=== PATIENT | female | born 2005 | race Caucasian/White ===

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

== ENCOUNTER 2025-01-20 15:47 | Outpatient (RCR) | payer BC, SELFPAY | END 2025-06-19 07:50 | disposition home or self-care (01) | LOC: PT 15:47 | PROVIDERS: PCP Family Medicine | DX: M76.821 Posterior tibial tendinitis, right leg (principal) | CPT/HCPCS: 97110; 97112; 97113; 97116; 97161 ==

== ENCOUNTER 2025-03-14 10:11 | Outpatient (OUT) | payer BC, SELFPAY ==
--- OUTSIDE RECORDS SUMMARY | 2024-08-13 07:56 | XMS_ITS ---
Author Organization The [facility] in [place] Address [address] [place] [address] Care Team Providers Care Repair Clerk Name Role Phone Alberto Reid MD Primary Care Provider Unavailab Oscar Copeland [phone] REASON FOR VISIT meds Medications Medication SIG (Take, Route, Fr equency, Duration) Notes Start Date End Date Status predniSONE 10 MG 3 tablets once a day for 3 days, 2 tablets once a day for 3 days, 1 tablet once a day for 3 days Orally for 9 days 08/13/2024 Active Encounters Encounter Location Date Provider Diagnosis [facility] (POD[facility]) [address] [place] [address] [place] [address] 08/13/2024 Oscar Boogie Plan Of Treatment Medication Medication Name Sig Start Date Stop Date Notes predniSONE 10 MG 3 tablets once a day for 3 days, 2 tablets once a day for 3 days, 1 tablet once a day for 3 days Orally for 9 days 08/13/2024 Progress Notes * Diana WHITTINGTONOB:2005 (18 yo F)Acc No.[id number]:08/13/2024 Patient: Matt SKINNERlie :2005 A ge:18 Y S ex:Female Address:[address] [place] [address] [address] , [place], [address] * Refills Start predniSONE Tablet, 10 MG, Orally, 18 tablet, 3 tablets once a day for 3 days, 2 tablets once a day for 3 days, 1 tablet once a day for 3 days, 9 days, Refills=0 * true * Date: Generated for Sendy sharif/Paige/eTransmitting on: 0 03/14/2025 10:14 AM EDT
--- OUTSIDE RECORDS SUMMARY | 2024-10-03 10:08 | XMS_ITS ---
Author Organization The [facility] in [place] Address [address] [place] [address] Care Team Providers Care Combination Operator Name Role Phone Alberto Reid MD Primary Care Provider Unavailab Oscar Copeland [facility] [phone] Encounters Encounter Location Date Provider Diagnosis [facility] [place] [address] [place] [address] 10/03/2024 Oscar Boogie Plan Of Treatment No Information Progress Notes * Diana WHITTINGTONOB:2005 (19 yo F)Acc No.[id number]:10/03/2024 Patient: Megan NUNEZ Urszula :2005 A ge:19 Y S ex:Female Address:[address] [place] [address], [phone] * true * Date: Generated for Dashawni ng/Trevorg/eTransmitting on: 0 03/14/2025 10:14 AM EDT
--- OUTSIDE RECORDS SUMMARY | 2024-12-11 06:00 | XMS_ITS ---
Author Organization [facility] in [place] Address [address] [place] [address] Care Team Providers Care Academic Services Professional Name Role Phone Franklin JEREZ, Alberto Primary Care Provider Unavailab Oscar Copeland [phone] REASON FOR VISIT discuss surgery Encounters Encounter Location Date Provider Diagnosis [facility] (PODIATRY) [address] [place] [address] [place] [address] 12/11/2024 Oscar Boogie Plan Of Treatment No Information Progress Notes * Igor [place]eDOB:2005 (19 yo F)Acc No.[id number]:12/11/2024 UNLOCKED PROGRESS NOTE Follow Up Patient: Urszula SKINNER Provider: Samira Boogie DPM MS :2005 A ge:19 Y S ex:Female Date:12/11/2024 Address:[address] [place], [place] [id number] Pcp:Alberto Reid MD Subjective: * Chief Complaints: * 1 . Discuss surgery. * Medical History: Objective: * Vitals: Assessment: Plan: * Treatment: * * Electronic signature of Duong Boogie DPM on 03/14/2025 at 10:13 AM EDT Sign off status: Pending Visit Status: O FF CANC (OFFICE CANCEL) * Provider: Samira Boogie DPM, MS Date: 0 12/11/2024 Generated for Printi ng/Faxing/eTransmitting on: 03/14/2025 10:13 AM EDT
--- OUTSIDE RECORDS SUMMARY | 2025-03-14 10:14 | XMS_ITS | Clinical Summary ---
Author Organization [facility] tem Address [id number] [address] [place] [address] Care Team Providers Care Drama Professor Name Role Phone Alberto Reid MD Primary Care Provider [phone] Allergies Active Allergy Reactions Criticality Noted Date Comments Albuterol 09/13/2019 Mom's states Ventolin makes patient vomit every time she has used it Amoxicillin 10/14/2018 Cephalosporins 10/14/2018 Vancomycin 01/05/2025 Medications cetirizine (ZyrTEC) 10 mg tablet Take 10 mg by mouth daily. Active montelukast (SINGULAIR) 10 mg tablet Take 10 mg by mouth nightly. Active albuterol (PROVENTIL HFA;VENTOLIN HFA) 90 mcg/actuation inhaler Inhale 2 puffs every 6 (six) hours as needed for wheezing. Active fluticasone (FLOVENT HFA) 220 mcg/actuation inhaler Inhale 2 puffs 2 (two) times a day. Active montelukast (SINGULAIR) 10 mg tablet TAKE 1 TABLET BY MOUTH DAILY FOR ASTHMA 11/19/2019 Active cetirizine (ZyrTEC) 1 mg/mL syrup Take 10 mg by mouth. Active NORTREL 1/35, 28, 1-35 mg-mcg per tablet Take 1 tablet by mouth daily. 07/16/2020 Active fluticasone propionate (FLOVENT HFA) 110 mcg/actuation inhaler Inhale 1 puff 2 (two) times a day. Active L norgest/e.estrad ioL-e.estrad (AMETHIA) 0.15 mg-30 mcg (84)/10 mcg (7) tablets,dose pack,3 month Take 1 tablet by mouth in the morning. 03/26/2024 Active loratadine (CLARITIN) 10 mg tablet Take 1 tablet (10 mg total) by mouth as needed. Active Active Problems No known active problems Encounters Date Type Department Care Team Description 01/05/2025 6:08 PM EDT - 01/05/2025 9:13 PM EDT Emergency [facility] - Emergency [address] [place] [phone] Abdias Sanchez MD Cellulitis, unspecified cellulitis site (Primary Dx) Discharge Disposition: Home 01/05/2025 Travel from Last 3 Months Family History Medical History Relation Name Comments Uterine cancer Maternal Grandmother Cancer Paternal Grandmother Relation Name Status Comments Father Alive Maternal Grandmother Alive Mother Alive Paternal Grandmother Social History Tobacco Use Types Packs/Day Years Used Date Smoking Tobacco: Never Smokeless Tobacco: Never Alcohol Use Standard Drinks/Week Comments Never 0 (1 standard drink = 0.6 oz pur e alcohol) AUDIT-C Answer Date Recorded Q1: How often do you have a drink containing alc ohol? Never 08/14/2020 Average Number of Drinks Not on file 021 Frequency of Binge Drinking Not on file 03/2021 Childcare Answer Date Recorded Childcare Unknown 01/16/2019 Employment Answer Date Recorded Employment Unknown 01/16/2019 Hunger Screening Answer Date Recorded Within the past 12 months we worried whether our food would run out before we got money to buy more. Never True 01/05/2025 Within the past 12 months th e food we bought just didn't last and we didn't have money to get more. Never True 01/05/2025 Purpose - Life Answer Date Recorded Purpose and direction in life Unknown Comments Unknown Sex and Gender Information Value Date Recorded Sex Assigned at Not on file Legal Sex Female 6:56 PM EDT Gender Identity Not on file Sexual Orientation Not on file Last Filed Vital Signs Vital Sign Reading Time Taken Comments Blood Pressure 119/64 01/05/2025 8:21 PM EDT Pulse 86 01/05/2025 8:21 PM EDT Temperature 36.7 C (98.1 F) 01/05/2025 6:04 PM EDT Respiratory Rate 18 01/05/2025 8:21 PM EDT Oxygen Saturation 99% 01/05/2025 9:12 PM EDT Inhaled Oxygen Concentration - - Weight 65.8 kg (145 lb) 01/05/2025 6:04 PM EDT Height 170.2 cm (5' 7 ) 01/05/2025 6:04 PM EDT Body Mass Index 22.71 01/05/2025 6:04 PM EDT Plan of Treatment Health Maintenance Due Date Last Done Comments DTaP,Tdap and Td Vaccines (6 - Tdap) 2016 04/29/2011, 10/10/2006, 04/04/2006, Additional history exists Depression Screening 2017 Tobacco Screening 2017 Influenza Vaccine 04/07/2025 06/17/2024, , 05/20/2022, Additional history exists Adult BMI Screening 01/05/2026 01/05/2025 COVID-19 Vaccine Completed 06/17/2024, , 05/20/2022, Additional history exists Medical Devices Not on file Procedures Procedure Name Priority Date/Time Associated Diagnosis Comments XR FOOT RT MIN 3 VWS STAT 01/05/2025 7:13 PM EDT C-REACTIVE PROTEIN Routine 01/05/2025 6: 48 PM EDT ERYTHROCYTE SEDIMENTATION RATE (ESR) Routine 01/05/2025 6:48 PM EDT LACTATE W/ REFLEX STAT 01/05/2025 6:4 8 PM EDT COMPREHENSIVE METABOLIC PANEL STAT 01/05/2025 6:48 PM EDT CBC WITH AUTO DIFFERENTIAL STAT 01/05/2025 6:48 PM EDT EXTRA TUBES BLUE TOP Routine 01/05/2025 6:47 PM EDT D-DIMER STAT Add-on 01/05/2025 6:47 PM EDT EXTRA TUBES Routine 01/05/2025 6:47 PM EDT from Last 3 Months Results * X-ray foot right minimum 3 views (01/05/2025 7:13 PM EDT) Anatomical Region Laterality Modality Lower Extremities, MSK, Foot Right Com puted Radiography 01/05/2025 7:37 PM EDT Narrative 01/05/2025 7:39 PM EDT 3 views of the right foot dated 01/05/2025 at 7:09 PM INDICATION: Swelling and pain in the right foot. Suspect osteomyelitis. FINDINGS: No comparisons available. 2 screws transfixing the calcaneus. The fracture line through the calcaneus is still visible. No soft tissue gas. No lucencies or periosteal reaction. IMPRESSION: 1. Two screws transfixing the calcaneus. 2. No lucencies or periosteal reaction to suggest osteomyelitis. Osteomyelitis can be occult on plain films. Finalized by Nasrin Johnston MD on 01/05/2025 7:39 PM Procedure Note Nasrin Johnston MD - 01/05/2025 3 views of the right foot dated 01/05/2025 at 7:09 PM INDICATION: Swelling and pain in the right foot. Suspect osteomyelitis. FINDINGS: No comparisons available. 2 screws transfixing the calcaneus.The fracture line through the calcaneus is still visible. No soft tissuegas. No lucencies or periosteal reaction. IMPRESSION: 1. Two screws transfixing the calcaneus. 2. No lucencies or periosteal reaction to suggest osteomyelitis.Osteomyelitis can be occult on plain films. Finalized by Nasrin Johnston MD on 01/05/2025 7:39 PM us Abdias Sanchez MD IMG DIAGNOSTIC IMAGING ORDERABL ES Final Result * Erythrocyte Sedimentation Rate (ESR) (01/05/2025 6:48 PM EDT) ESR, Erythrocyte Sedimentation Rate <1 0 - 20 mm/h 01/06/2025 10:19 AM EDT [facility] Blood Venous blood / Unknown 01/05/2025 6:48 PM EDT 01/05/2025 6:50 PM EDT us Abdisa Sanchez MD LAB BLOOD ORDERABLES Final Resu lt Performing Organization Address City/[facility]/ZIP Co de Phone Number [facility] [address] [place] [address], [place] [phone] * Lactate w/ Reflex (01/05/2025 6:48 PM EDT) LACTATE W/REFLEX 1.0 0.4 - 2.0 mmol/L 01/05/2025 7:08 PM EDT [facility] Blood Venous blood / Unknown 01/05/2025 6:48 PM EDT 01/05/2025 6:50 PM EDT Narrative [facility] - 01/05/2025 7:08 PM EDT Result did not trigger repeat Lactate, re-order if needed. us Abdias Sanchez MD LAB BLOOD ORDERABLES Final Resu lt Performing Organization Address City/[facility]/ZIP Co de Phone Number [facility] [address] [place] [address], [place] * (ABNORMAL) CBC auto differential (01/05/2025 6:48 PM EDT) WBC 8.2 4 - 11 x10E9/L 01/05/2025 7:08 PM EDT [facility] RBC Count 4.14 3.8 - 5.2 X10E12/L 01/05/2025 7:08 PM EDT [facility] Hemoglobin 13.8 11.7 - 15.5 g/dL 01/05/2025 7:08 PM EDT [facility] Hematocrit 39.9 35 - 47 % 01/05/2025 7:08 PM EDT [facility] MCV 97 80 - 100 fL 01/05/2025 7:08 PM EDT [facility] MCH 33.4 27 - 34 pg 01/05/2025 7:08 PM EDT [facility] MCHC 34.6 32 - 36 g/dL 01/05/2025 7:08 PM EDT [facility] RDW 13.1 11.5 - 15 % 01/05/2025 7:08 PM EDT [facility] Platelet Count 346 150 - 450 X10E9/L 01/05/2025 7:08 PM EDT [facility] MPV 7.7 7 - 12 fL 01/05/2025 7:08 PM EDT [facility] Neutrophils % 48.8 % 01/05/2025 7:08 PM EDT [facility] Lymphocytes % 33.2 % 01/05/2025 7:08 PM EDT [facility] Monocytes % 7.9 % 01/05/2025 7:08 PM EDT [facility] Eosinophils % 9.8 % 01/05/2025 7:08 PM EDT [facility] Basophils % 0.3 % 01/05/2025 7:08 PM EDT [facility] Neutrophils Absolute (A) 4.0 1.5 - 6.6 10*3/uL 01/05/2025 7:08 PM EDT [facility] Lymphocytes Absolute 2.7 1.0 - 3.5 10*3/uL 01/05/2025 7:08 PM EDT [facility] Monocytes Absolute 0.6 0.0 - 0.9 10*3/uL 01/05/2025 7:08 PM EDT [facility] Eosinophils Absolute 0.8(H) 0.0 - 0.4 10*3/uL 01/05/2025 7:08 PM EDT [facility] Basophils Absolute 0.0 0.0 - 0.2 10*3/uL 01/05/2025 7:08 PM EDT [facility] Differential Type AUTOMATED DIFFERENTIAL 01/05/2025 7:08 PM EDT [facility] Blood Venous blood / Unknown 01/05/2025 6:48 PM EDT 01/05/2025 6:50 PM EDT us Abdias Sanchez MD LAB BLOOD ORDERABLES Final Resu lt Performing Organization Address [facility] Co de Phone Number [address] [place] [address], [place] * C-reactive protein (01/05/2025 6:48 PM EDT) C REACTIVE PROTEIN 0.6 <=0.7 mg/dL 01/05/2025 7:15 PM EDT [facility] Blood Venous blood / Unknown 01/05/2025 6:48 PM EDT 01/05/2025 6:50 PM EDT us Abdias Sanchez MD LAB BLOOD ORDERABLES Final Resu lt Performing Organization Address [facility] Co de Phone Number [address] [place] [address], [place] * (ABNORMAL) Comprehensive metabolic panel (01/05/2025 6:48 PM EDT) SODIUM 136 134 - 146 mmol/L 01/05/2025 7:27 PM EDT [facility] POTASSIUM 3.5 3.5 - 5.0 mmol/L 01/05/2025 7:27 PM EDT [facility] CHLORIDE 108 98 - 109 mmol/L 01/05/2025 7:27 PM EDT [facility] CARBON DIOXIDE 19(L) 22 - 32 mmol/L 01/05/2025 7:27 PM EDT [facility] ANION GAP 9 5 - 15 mmol/L 01/05/2025 7:27 PM EDT [facility] BLOOD UREA NITROGEN 18 5 - 23 mg/dL 01/05/2025 7:27 PM EDT [facility] CREATININE 0.79 0.40 - 1.00 mg/dL 01/05/2025 7:27 PM EDT [facility] Comment:METHOD TRACEABLE TO IDMS STANDARD GLUCOSE 108(H) 65 - 99 mg/dL 01/05/2025 7:27 PM EDT [facility] CALCIUM 8.8 8.5 - 10.5 mg/dL 01/05/2025 7:27 PM EDT [facility] TOTAL PROTEIN 6.5 6.0 - 8.0 g/dL 01/05/2025 7:27 PM EDT [facility] ALBUMIN 3.9 3.2 - 5.3 g/dL 01/05/2025 7:27 PM EDT [facility] ALKALINE PHOSPHATASE 58 39 - 130 U/L 01/05/2025 7:27 PM EDT [facility] AST 18 <=41 U/L 01/05/2025 7:27 PM EDT [facility] ALT 20 <=31 U/L 01/05/2025 7:27 PM EDT [facility] BILIRUBIN,TOTAL 0.6 0.3 - 1.2 mg/dL 01/05/2025 7:27 PM EDT [facility] EGFR Non-Race Dependent >90 >=60 ml/min/1.7 3sq.m 01/05/2025 7:27 PM EDT [facility] Comment: Reported eGFR is based on the CKD-EPI 2020 equation that does not use a race coefficient. Blood Venous blood / Unknown 01/05/2025 6:48 PM EDT 01/05/2025 6:50 PM EDT us Abdias Sanchez MD LAB BLOOD ORDERABLES Final Resu lt [facility] [address] [place] [address], [place] * Light Blue Top (01/05/2025 6:47 PM EDT) Extra Tube Auto Resulted 01/05/2025 8:02 PM EDT [facility] Blood Venous blood / Unknown 01/05/2025 6:47 PM EDT 01/05/2025 6:51 PM EDT Abdias Sanchez MD LAB BLOOD ORDERABLES Final Resu lt Performing Organization Address [facility] Co de Phone Number [address] [place] [address], * D-Dimer (01/05/2025 6:47 PM EDT) D DIMER <150 1 - 255 ug/mL 01/05/2025 8:13 PM EDT [facility] Comment:Results <255 ng/mL D DU: The presensence of a VTE can safely be excluded with a negative D-Dimer result and Wells score. A negative result doesn't exclude the possibility of DIC. The test should be repeated along with other diagnostic tests if the patient's symptoms persist or worsen. Blood Venous blood / Unknown 01/05/2025 6:47 PM EDT 01/05/2025 6:51 PM EDT Abdias Sanchez MD LAB BLOOD ORDERABLES Final Resu lt Performing Organization Address [facility] Co de Phone Number [address] [place] [address], from Last 3 Months Insurance ANTHE[facility] [phone] Care Teams Drama Professor Relationship Specialty Start Date End Date Alberto Reid MD PCP - General Family Medicine 10/14/18
--- OUTSIDE RECORDS SUMMARY | 2025-03-14 10:14 | XMS_ITS | Encounter Summary ---
Author Organization [facility] Address [address], [address] [place] [address] Care Team Providers Care Global Climate Change Analyst Name Role Phone Alberto Reid MD Primary Care Provider + Reason for Visit * Reason Comments Medication Refill Encounter Details Date Type Department Care Team (Late st Contact Info) Description 02/26/2019 Refill [facility] [address] [phone] Joanie Gaines MD Medication Refill Social History Tobacco Use Types Packs/Day Years Used Date Smoking Tobacco: Passive Smo ke Exposure - Never Smoker Smokeless Tobacco: Current Comments:both parents smoke Alcohol Use Standard Drinks/Week Comments Not Asked 0 (1 standard drink = 0.6 oz pur e alcohol) Comments Unknown Sex and Gender Information Value Date Recorded Sex Assigned at Not on file Legal Sex Female 10:12 PM EST Gender Identity Not on file Sexual Orientation Not on file documented as of this encounter Plan of Treatment Not on file documented as of this encounter Visit Diagnoses Not on filedocumented in this encounter Care Teams Global Climate Change Analyst Relationship Specialty Start Date End Date Alberto Reid MD PCP - General Family Medicine 11/09/18 documented as of this encounter
--- OUTSIDE RECORDS SUMMARY | 2025-03-14 10:14 | XMS_ITS | Encounter Summary ---
Author Organization [facility] Address [address] [place] [address] Care Team Providers Care Lease Out Worker Name Role Phone Alberto Reid MD Primary Care Provider [phone] Reason for Visit * Reason Comments Med Refill Encounter Details Date Type Department Care Team (Late Contact Info) Description 03/05/2025 Refill [facility] [address] [place] [phone] Alberto Reid MD [address] [place] [phone] Migraine without aura and without status migrainosus, not intractable Social History Tobacco Use Types Packs/Day Years Used Date Smoking Tobacco: Never Smokeless Tobacco: Never Alcohol Use Standard Drinks/Week Comments Never 0 (1 standard drink = 0.6 oz pur e alcohol) PHQ-2 Answer Date Recorded Patient Health Questionnaire-2 Score 0 09/05/2023 Comments Unknown Sex and Gender Information Value Date Recorded Sex Assigned at Not on file Legal Sex Female 7:32 PM EDT Gender Identity Not on file Sexual Orientation Not on file documented as of this encounter Miscellaneous Notes * Telephone Encounter - NAHED RICHARDSON - 03/06/2025 9:49 AM EDT MEDICATION SENT TO [facility] documented in this encounter Plan of Treatment Upcoming Encounters Date Type Department Care Team (Late Contact Info) Description 05/26/2025 9:45 AM EDT Office Visit [facility] [address] [place] [address] Alberto Reid MD [address] [place] [address] documented as of this encounter Visit Diagnoses Diagnosis Migraine without aura and without status migrainosus, not intractable documented in this encounter Care Teams Lease Out Worker Relationship Specialty Start Date End Date Alberto Reid MD [address] [place] [address] PCP - General Family Medicine 08/25/23 documented as of this encounter
--- OUTSIDE RECORDS SUMMARY | 2025-03-14 10:14 | XMS_ITS | Encounter Summary ---
Author Organization [facility] Address [address] [place] [address] Care Team Providers Care Syrup Shed Supervisor Name Role Phone Alberto Reid MD Primary Care Provider [phone] Encounter Details Date Type Department Care Team (Late st Contact Info) Description 08/13/2024 Clinisync Result Encounter [facility] External Department Unsolicited Provider, Generic External Data Social History Tobacco Use Types Packs/Day Years [...] as of this encounter Plan of Treatment Upcoming Encounters Date Type Department Care Team (Late st Contact Info) Description 05/26/2025 9:45 AM EDT Office Visit [facility] [address] [place] [address] Alberto Reid MD [address] [place] [address] documented as of this encounter Procedures Procedure Name Priority Date/Time Associated Diagnosis Comments XR FOOT RT MIN 3V 08/13/2024 10: 37 PM EST documented in this encounter Results * XR FOOT RT MIN 3V (08/13/2024 10:37 PM EST) Anatomical Region Laterality Modality Other 08/13/2024 10:3 7 PM EST Narrative 08/13/2024 10:39 [place] [address] XRay Report Signed Patient: KOLBY WHITTINGTON MR#: [id number] : 2005 Acct:[id number] Age/Sex: 18 / F ADM Date: 08/13/24 Loc: RAD Attending Dr: Orlando Boogie D.P.M. Ordering Physician: Orlando Boogie D.P.M. Date of Service: 08/13/24 Procedure(s): XR foot RT min 3V Accession Number(s): [id number] cc: Orlando Boogie D.P.M.; Alberto Reid M.D. [place] [address] Patient Name: KOLBY WHITTINGTON MRN: [id number] date: 2005 Sex: F Assigned Patient Location: [facility] Current Patient Location: [facility] Accession/Order Number: [id number] Exam Date: 08/13/2024 10:45 Report Date: 08/13/2024 22:37 At the request of: ORLANDO BOOGIE Procedure: XR foot RT min 3V EXAM: XR foot RT min 3V HISTORY: Right Foot Pain COMPARISON: None. FINDINGS/IMPRESSION: 1. No acute fracture or dislocation. 2. Normal alignment of the forefoot. 3. No significant joint degeneration. Electronically authenticated by: FREYA WALTON Date: 08/13/2024 22:37 Dictated By: Freya Walton M.D. Signed By: 08/13/242238 DD/ 36 TD/TT: Health Informatics Instructor: Procedure Note Radiology, Radiologist, MD - 08/14/2024 [place] [address] XRay Report Signed Patient: KOLBY WHITTINGTON LMR#: [id number] : 2005cct:[id number] Age/Sex: 18 / FADM Date: 08/13/24 Loc: RAD Attending Dr: Orlando Boogie D.P.M. Ordering Physician: Orlando Boogie D.P.M. Date of Service: 08/13/24 Procedure(s): XR foot RT min 3V Accession Number(s): [id number] cc: Orlando Boogie D.P.M.; Alberto Reid M.D. [address] [place] [address] Patient Name: KOLBY WHITTINGTON MRN: [id number] date: 2005 Sex: F Assigned Patient Location: RAD Current Patient Location: RAD Accession/Order Number: [id number] Exam Date: 08/13/2024 10:45 Report Date: 08/13/2024 22:37 At the request of: ORLANDO BOOGIE Procedure: XR foot RT min 3V EXAM: XR foot RT min 3V HISTORY: Right Foot Pain COMPARISON: None. FINDINGS/IMPRESSION: 1. No acute fracture or dislocation. 2. Normal alignment of the forefoot. 3. No significant joint degeneration. Electronically authenticated by: FREYA WALTON Date: 08/13/2024 22:37 Dictated By: Freya Walton M.D. Signed By:08/13/242238 DD/ 36 TD/TT: Health Informatics Instructor: Generic External Data Provider [facility] Final Result documented in this encounter Visit Diagnoses Not on filedocumented in this encounter Care Teams Syrup Shed Supervisor Relationship Specialty Start Date End Date Alberto Reid MD [address] [place] [address] PCP - General Family Medicine 08/25/23 documented as of this encounter
--- OUTSIDE RECORDS SUMMARY | 2025-03-14 10:14 | XMS_ITS | Clinical Summary ---
Author Organization [facility] Healthcare Address [address] [place] [address] Care Team Providers Care Chaperon Name Role Phone Alberto Reid MD Primary Care Provider [phone] Allergies Active Allergy Reactions Criticality Noted Date Comments Albuterol Unknown 09/13/2019 Mom's states Ventolin makes patient vomit every time she has used it Mom's states Ventolin makes patient vomit every time she has used it Mom's states Ventolin makes patient vomit every time she has used it Cephalosporins Hives,Shortness of breath,Swelling High 11/23/2012 Penicillins Hives,Shortness of breath,Swelling High 09/08/2011 Vancomycin Rash Low 02/27/2025 Medications fluticasone (Flovent) 110 MCG/ACT inhalerIndication s:Mild intermittent asthma without complication (HCC) Inhale 2 puffs in the morning and 2 puffs before bedtime. 12 g 5 02/29/20 24 Active montelukast (Singulair) 10 MG tablet Take 10 mg by mouth at bedtime Active ondansetron ODT (Zofran-ODT) 4 MG disintegrating tabletIndications :Migraine without aura and without status migrainosus, not intractable DISSOLVE 1 (ONE) TABLET ON THE TONGUE EVERY 6 HOURS NEEDED 30 tablet 2 03/19/20 24 Active L norgest/e.estradi ol-e.estrad (Simpesse) 0.15-0.03 &0.01 MG tablet tabletIndications :Irregular menstruation, unspecified Take 1 tablet by mouth Daily 91 tablet 3 03/26/20 24 Active benzonatate (Tessalon) 200 MG capsuleIndication s:Acute non-recurrent pansinusitis Take 1 capsule (200 mg) by mouth 3 (three) times a day as needed for cough Do not crush or chew. 20 capsule 1 04/05/20 24 Active rizatriptan SMALL PACKAGE AND BUNDLE SORTER CLERK (Maxalt-SMALL PACKAGE AND BUNDLE SORTER CLERK) 10 MG disintegrating tabletIndications :Migraine without aura and without status migrainosus, not intractable TAKE 1 TABLET BY MOUTH at the onset OF headache may repeat in 2 (TWO) HOURS once 9 tablet 3 05/14/20 24 Active hydrOXYzine HCl (Atarax) 25 MG tabletIndications :Urticaria, unspecified TAKE 1 TABLET BY MOUTH FOUR TIMES DAILY NEEDED 60 tablet 2 05/15/20 24 Active Mucinex D Max Strength 120-1200 MG tablet sustained-release 12 hourIndications:S easonal allergic rhinitis due to pollen TAKE 1 TABLET BY MOUTH TWICE DAILY NEEDED for congestion 60 tablet 3 05/27/20 24 Active topiramate (Topamax) 100 MG tabletIndications :Migraine without aura and without status migrainosus, not intractable TAKE 1 TABLET BY MOUTH THREE TIMES DAILY (IN THE MORNING, IN THE EVENING, and BEFORE bedtime) 90 tablet 3 03/06/20 25 Active topiramate (Topamax) 100 MG tabletIndications :Migraine without aura and without status migrainosus, not intractable TAKE 1 TABLET BY MOUTH THREE TIMES DAILY (IN THE MORNING, IN THE EVENING, and BEFORE bedtime) 90 tablet 3 05/27/20 24 2024 Discontinued Active Problems Problem Noted Date Diagnosed Date Palpitation 02/06/2025 Assessment & Plan (02/27/2025 3:10 PM EDT): Frequent symptoms causing lightheadedness. Check labs and Holter. Endometriosis 10/07/2024 Assessment & Plan (11/27/2024 10:04 AM EDT): Increased pain and follow with rn gyn. Assessment & Plan (10/07/2024 12:14 PM EST): Increased pain and follow with rn gyn. ROXANA (generalized anxiety disorder) 07/16/2024 Assessment & Plan (02/27/2025 3:09 PM EDT): Symptoms stable and monitor. Assessment & Plan (10/07/2024 12:14 PM EST): Symptoms stable and monitor. Assessment & Plan (07/16/2024 12:11 PM EST): Severe anxiety and appears situational. Will complete paperwork to get single room and to be able to take exam online. Biliary dyskinesia 02/29/2024 Assessment & Plan (02/29/2024 11:17 AM EDT): Continued pain and abnormal testing, follow with surgery. RUQ pain 01/25/2024 Assessment & Plan (11/27/2024 10:04 AM EDT): Frequent pain and possibly related to endometriosis. Labs normal. Assessment & Plan (10/07/2024 12:15 PM EST): Frequent pain and possibly related to endometriosis. Check labs. Assessment & Plan (01/25/2024 12:33 PM EDT): Continued pain and check US. If normal and symptoms persist can check HIDA. Gastroesophageal reflux disease without esophagi tis 01/25/2024 Assessment & Plan (01/25/2024 12:33 PM EDT): Developed GERD and start protonix. Arthralgia of multiple joints 11/30/2023 Assessment & Plan (11/30/2023 10:36 AM EDT): Pain in multiple joints and family history of auto-immune disease. Check labs. Migraine without aura and wi thout status migrainosus, not intractable 09/05/2023 Assessment & Plan (02/27/2025 3:09 PM EDT): HENRY controlled with topamax and continue. Use maxalt PRN. Assessment & Plan (10/07/2024 12:14 PM EST): HENRY controlled with topamax and continue. Use maxalt PRN. Assessment & Plan (02/29/2024 11:17 AM EDT): HENRY controlled with topamax and continue. Use maxalt PRN. Assessment & Plan (11/30/2023 10:36 AM EDT): HENRY controlled with topamax and continue. Use maxalt PRN. Seasonal allergic rhinitis due to pollen Assessment & Plan (02/27/2025 3:10 PM EDT): Symptoms controlled with medication and continue. Assessment & Plan (10/07/2024 12:15 PM EST): Symptoms controlled with medication and continue. Assessment & Plan (02/29/2024 11:18 AM EDT): Symptoms controlled with medication and continue. Assessment & Plan (11/30/2023 10:36 AM EDT): Symptoms controlled with medication and continue. Annual physical exam 09/05/2023 Assessment & Plan (09/05/2023 10:27 AM EST): Form completed for work. Due for Tdap booster. Discussed proper diet and regular aerobic exercise. Need aerobic exercise 5-6 days a week for 30 minutes at a time. Smaller portions and limit total calories. Colonoscopy after age 45. Tetanus every 10 years. Advised not to smoke. Discussed daily Aspirin therapy. Mild intermittent asthma without complication Assessment & Plan (02/27/2025 3:09 PM EDT): Symptoms controlled with flovent and continue. Use albuterol PRN. Assessment & Plan (10/07/2024 12:14 PM EST): Symptoms controlled with flovent and continue. Use albuterol PRN. Assessment & Plan (02/29/2024 11:17 AM EDT): Symptoms controlled with flovent and continue. Use albuterol PRN. Assessment & Plan (11/30/2023 10:36 AM EDT): Symptoms controlled with flovent and continue. Use albuterol PRN. Resolved Problems Problem Noted Date Diagnosed Date Resolved Date Acute bronchitis due to othe r specified organisms 05/23/2024 07/16/2024 Assessment & Plan (05/23/2024 4:06 PM EDT): Take antibiotics for 5 days and will [...] if no better or worse call office. Acute non-recurrent pansinusitis 01/10/2024 01/25/2024 Assessment & Plan (01/10/2024 11:08 AM EDT): Take antibiotics for 7 days. Use prednisone for inflammation. Use sudafed or other decongestants as needed. Use Robitussin or Robitussin-DM for cough. Can use afrin for congestion but no longer than 3 days. Can use Mucinex to bring up phlegm. Use Motrin or Tylenol as needed for fever, aches, or pains. Increase fluid intake and rest. Should improve over next 5-7 days and if no better or worse call for re- evaluation. Acute nonsuppurative otitis media of left ear 01/10/20 24 01/25/2024 Assessment & Plan (01/10/2024 11:08 AM EDT): Start levaquin Acute right ankle pain 11/30/202302/28 Assessment & Plan (11/30/2023 10:35 AM EDT): Recent pain but no injury. Treat with prednisone. Ice and elevate PRN. Handout with ROM exercises to patient. Adjustment disorder with anxious mood 01/17/2023 09/05/2023 Disturbance in sleep behavior 01/17/2023 09/05/2023 Tension headache 01/17/2023 09/05/2023 Encounters Date Type Department Care Team Description 03/05/2025 Refill [facility] [address] [place] [phone] Alberto Reid MD Migraine without aura and without status migrainosus, not intractable 02/27/2025 2:45 PM EDT Office Visit [facility] [address] [place] [address] Alberto Reid MD Palpitation (Primary Dx); Migraine without aura and without status migrainosus, not intractable ; ROXANA (generalized anxiety disorder) ; Mild intermittent asthma without complication (HCC); Seasonal allergic rhinitis due to pollen 02/27/2025 Bamboo flowsheet [facility] [address] [place] [phone] Alberto Reid MD 02/05/2025 Telephone [facility] [address] [place] [address] Alberto Reid MD Rapid Heart Rate from Last 3 Months Family History Medical History Relation Name Comments Diabetes Maternal Grandfather Hypertension Maternal Grandfather Endometriosis Maternal Grandmother Endometriosis Mother Cancer Paternal Grandfather Relation Name Status Comments Father Alive Maternal Grandfather Maternal Grandmother Mother Alive Paternal Grandfather Social History Tobacco Use Types Packs/Day Years Used Date Smoking Tobacco: Never Smokeless Tobacco: Never Tobacco Cessation:Counseling Given: Not Answered Alcohol Use Standard Drinks/Week Comments Never 0 [...] Sign Reading Time Taken Comments Blood Pressure 122/66 02/27/2025 2:44 PM EDT Pulse 105 02/27/2025 2:44 PM EDT Temperature 36.6 C (97.8 F) 02/27/2025 2:44 PM EDT Respiratory Rate 20 02/27/2025 2:44 PM EDT Oxygen Saturation 98% 02/27/2025 2:44 PM EDT Inhaled Oxygen Concentration - - Weight 71.7 kg (158 lb) 02/27/2025 2:44 PM EDT Height 170.2 cm (5' 7 ) 02/27/2025 2:44 PM EDT Body Mass Index 24.75 02/27/2025 2:44 PM EDT Plan of Treatment Upcoming Encounters Date Type Department Care Team (Late st Contact Info) Description 05/26/2025 9:45 AM EDT Office Visit [facility] [address] [place] [address] Alberto Reid MD [address] [place] [address] Health Maintenance Due Date Last Done Comments Influenza Vaccine (#1) 2025 , 07/06/2023, 05/20/2022, Additional history exists Insurance [employer] Care Teams Chaperon Relationship Specialty Start Date End Date Alberto Reid MD [address] [place] [address] PCP - General Family Medicine 08/25/23
--- OUTSIDE RECORDS SUMMARY | 2025-03-14 10:14 | XMS_ITS | Encounter Summary ---
Author Organization [facility] Address [address] [place] [address] Care Team Providers Care Precipitator Name Role Phone Alberto Reid MD Primary Care Provider [phone] Alberto Reid MD Unavailable Encounter Details Date Type Department Care Team ([facility] Contact Info) Description 06/18/2024 Orders Only [facility] [address] [place] [phone] Alberto Reid MD [address] [place] [phone] Social History Tobacco Use Types Packs/Day Years [...] 05/26/2025 9:45 AM EDT Office Visit [facility] [address] [place] [phone] Alberto Reid MD [address] [place] [address] documented as of this encounter Visit Diagnoses Not on filedocumented in this encounter Care Teams Precipitator Relationship Specialty Start Date End Date Alberto Reid MD [address] [place] [address] PCP - General Family Medicine 08/25/23 Alberto Reid MD [address] [place] [address] PCP - [place] [employer] 01/06/2407/06 documented as of this encounter
--- OUTSIDE RECORDS SUMMARY | 2025-03-14 10:14 | XMS_ITS | Clinical Summary ---
Author Organization [facility] Address [address], [address] [place] [address] Care Team Providers Care Wellness Coordinator Name Role Phone Alberto Reid MD Primary Care Provider + Allergies Active Allergy Reactions Criticality Noted Date Comments Amoxicillin Hives 09/08/2011 Cephalosporins Swelling High 11/23/2012 Latex Hives 12/04/2024 Other 09/05/2011 Dust, mold Penicillins Anaphylaxis,Rash High 12/03/2024 Albuterol 09/13/2019 Mom's states Ventolin makes patient vomit every time she has used it Medications Respiratory Therapy Supplies (VORTEX HOLDING CHAMBER/MASK) TRINIDAD by Does not apply route. 1 Device 0 09/08/19 12 Active Nebulizers (BOB LC PLUS NEB SET PED MASK) MISC 1 Device by Does not apply route 2 times daily. 1 each 0 09/13/19 14 Active Additional Information Patient not taking.Reported on 09/13/2019 Respiratory Therapy Supplies (VORTEX HOLDING CHAMBER/MASK) TRINIDAD 1 Device by Does not apply route daily 1 Device 08/15/19 17 Active fluticasone (FLOVENT HFA) 220 MCG/ACT inhaler Inhale 2 puffs into the lungs 2 times daily 1 Inhaler 5 11/10/19 19 Active ondansetron (ZOFRAN-ODT) 4 MG disintegrating tablet Take 1 tablet by mouth every 8 hours as needed for Nausea or Vomiting 0 03/22/20 19 Active fluticasone (FLONASE) 50 MCG/ACT nasal spray 1 spray by Nasal route daily 1 Bottle 5 06/07/20 19 Active Additional Information Patient taking differently:1 spray NasalDAILY PRN, Reported on 12/04/2024 albuterol sulfate HFA (PROAIR HFA) 108 (90 Base) MCG/ACT inhaler Inhale 2 puffs into the lungs every 6 hours as needed for Wheezing 1 Inhaler 06/07/20 19 Active Respiratory Therapy Supplies (VORTEX HOLDING CHAMBER/MASK) TRINIDAD 1 Device by Does not apply route daily 1 Device 09/13/19 20 Active montelukast (SINGULAIR) 10 MG tablet TAKE 1 TABLET BY MOUTH DAILY FOR ASTHMA 90 tablet 1 11/19/19 20 Active Additional Information Patient taking differently: 10 mg Oral NIGHTLY, Reported on 12/04/2024 Levonorgest-Eth Estrad 91-Day (SIMPESSE) 0.15-0.03 &0.01 MG TABS Take 1 tablet by mouth daily Active loratadine (CLARITIN) 10 MG tablet Take 1 tablet by mouth as needed Active cetirizine (ZYRTEC) 10 MG tablet Take 1 tablet by mouth as needed for Allergies Active topiramate (TOPAMAX) 25 MG tablet Take 2 tablets by mouth 3 times daily Active rizatriptan (MAXALT-CORPORATE TAX PREPARER) 10 MG disintegrating tablet Take 1 tablet by mouth once as needed 05/14/20 24 Active Active Problems Patient Care Coordination No te Formatting of this note migh t be different from the original. Please all respiratory meds and equipment per Dr. Gaines Problem Noted Date Diagnosed Date Asthma 06/24/2013 Immunizations Immunization Administration Dates Next Due Influenza 09/08/2011 Influenza, FLUARIX, FLULAVAL , FLUZONE (age 6 mo+) and AFLURIA, (age 3 y+), Quadv PF, 0.5mL 08/15/2016 Social History Tobacco Use Types Packs/Day Years Used Date Smoking Tobacco: Never Passive Smoke Exposure: Yes Smokeless Tobacco: Never Tobacco Cessation:Counseling Given: Not Answered Comments:both parents smoke Alcohol Use Standard Drinks/Week Comments Not Currently 0 (1 standard drink = 0.6 oz pur e alcohol) Interpersonal Safety Domain Source: IP Abuse Scr eening Answer Date Recorded Physical abuse Denies 12/04/2024 Verbal abuse Denies 12/04/2024 Emotional abuse Denies 12/04/2024 Financial abuse Denies 12/04/2024 Sexual abuse Denies 12/04/2024 Comments Unknown Sex and Gender Information Value Date Recorded Sex Assigned at Not on file Legal Sex Female 10:12 PM EST Gender Identity Not on file Sexual Orientation Not on file Last Filed Vital Signs Vital Sign Reading Time Taken Comments Blood Pressure 119/73 12/04/2024 2:10 PM EDT Pulse 91 12/04/2024 2:10 PM EDT Temperature 36.9 C (98.4 F) 12/04/2024 2:10 PM EDT Respiratory Rate 14 12/04/2024 2:10 PM EDT Oxygen Saturation 100% 12/04/2024 2:10 PM EDT Inhaled Oxygen Concentration - - Weight 69.4 kg (153 lb) 12/04/2024 9:27 AM EDT Height 170.2 cm (5' 7 ) 12/04/2024 9:27 AM EDT Body Mass Index 23.96 12/04/2024 9:27 AM EDT Plan of Treatment Health Maintenance Due Date Last Done Comments DTaP/Tdap/Td vaccine (6 - Tdap) 2016 04/29/2011, 10/10/2006, 04/04/2006, Additional history exists Depression Screen 2017 HIV screen 2020 HPV vaccine (1 - 3-dose series) 2020 Chlamydia/GC screen 2021 Hepatitis C screen 2023 Pneumococcal 0-49 years Vacc ine (1 of 2 - PCV) 2024 10/10/2006, 04/04/2006, 01/11/2006, Additional history exists Meningococcal B vaccine (2 o f 2 - Bexsero SCDM 2-dose series) 12/30/2024 07/02/2024 Flu vaccine (#1) 03/07/2025 06/17/2024, , 05/20/2022, Additional history exists Hepatitis B vaccine Completed 04/04/2006, 2005, 2005 Hib vaccine Completed 10/10/2006, 03/08, 01/11/2006, Additional history exists Measles,Mumps,Rubella (MMR) vaccine Discontinued 04/29/2011, 10/10/2006 Polio vaccine Completed 04/29/2011, 03/08, 01/11/2006, Additional history exists Varicella vaccine Completed 04/29/2011, 10/10/2006 COVID-19 Vaccine Completed 06/17/2024, , 05/20/2022, Additional history exists Hepatitis A vaccine Completed 07/02/2024, Meningococcal (ACWY) vaccine Completed 07/02/2024, 09/08/2023 Medical Devices Implanted Type Area Electric Motor Analyst Device Identifier Shelf Expiration Date Model / Serial / Lot Screw Bne L50mm Dia7mm Xl Full Thrd Compr - [id number] Implanted:Qty: 2 on 12/04/2024 by Vic Hickman DPM at [facility] Right: Foot [employer] [id number] / / System Orthopedic 4.75 Mm Fdl - [id number] Implanted:Qty: 1 on 12/04/2024 by Vic Hickman DPM at [facility] Right: Foot [employer] 08/06/2028 [id number] / / [id number] [place] [address] [address] [place] [address] Care Teams Wellness Coordinator Relationship Specialty Start Date End Date Alberto Reid MD PCP - General Family Medicine 11/09/18
--- OUTSIDE RECORDS SUMMARY | 2025-03-14 10:14 | XMS_ITS | Encounter Summary ---
Author Organization [facility] Address [address] [facility] [place] [address] Care Team Providers Care Cemetery Manager Name Role Phone Alberto Reid MD Primary Care Provider [phone] Alberto Reid MD Unavailable Encounter Details Date Type Department Care Team (Late Contact Info) Description 04/18/2024 Orders Only [facility] [address] [place] [address] Oscar Boogie MD [address] [place] [address] [place] [address] Social History Tobacco Use Types Packs/Day Years [...] 9:45 AM EDT Office Visit [facility] [address] [place] [phone] Alberto Reid MD [address] [place] [address] documented as of this encounter Procedures Procedure Name Priority Date/Time Associated Diagnosis Comments XR ANKLE 3+ VIEWS RIGHT Routine 04/17/2024 1:14 PM EDT documented in this encounter Results * XR ankle 3+ views right (04/17/2024 1:14 PM EDT) Anatomical Region Laterality Modality Lower Extremities, Ankle Right Radiogr aphic Imaging Oscar Boogie MD IMG XR PROCEDURES Final Re sult documented in this encounter Visit Diagnoses Not on filedocumented in this encounter Care Teams Cemetery Manager Relationship Specialty Start Date End Date Alberto Reid MD [address] [place] [address] PCP - General Family Medicine 08/25/23 Alberto Reid MD [address] [place] [address] PCP - Gustavo Kendrick 01/06/2407/06 documented as of this encounter
--- OUTSIDE RECORDS SUMMARY | 2025-03-14 10:14 | XMS_ITS | Encounter Summary ---
Author Organization [facility] Address [address] [facility] [place] [address] Care Team Providers Care Inspector Precision Assembly Name Role Phone Alberto Reid MD Primary Care Provider [phone] Alberto Reid MD Unavailable Encounter Details Date Type Department Care Team ([facility] Contact Info) Description 04/01/2024 Orders Only [facility] [address] [place] [address] Alberto Reid MD [address] [place] [address] Social History Tobacco Use Types Packs/Day Years [...] Office Visit [facility] [address] [place] [address] Alberto Reid MD [address] [place] [address] documented as of this encounter Visit Diagnoses Not on filedocumented in this encounter Care Teams Inspector Precision Assembly Relationship Specialty Start Date End Date Alberto Reid MD [address] [place] [address] PCP - General Family Medicine 08/25/23 Alberto Reid MD [address] [place] [address] PCP - [place] [employer] 01/06/2407/06 documented as of this encounter
--- OUTSIDE RECORDS SUMMARY | 2025-03-14 10:14 | XMS_ITS | Encounter Summary ---
Author Organization [facility] Address [address] [place] [address] Care Team Providers Care Research Tech Name Role Phone Alberto Reid MD Primary Care Provider [phone] Alberto Reid MD Unavailable Encounter Details Date Type Department Care Team (Late st Contact Info) Description 04/18/2024 Clinisync Result Encounter [facility] External Department Unsolicited [...] 05/26/2025 9:45 AM EDT [facility] [address] [place] [address] Alberto Reid MD [address] [place] [address] documented as of this encounter Procedures Procedure Name Priority Date/Time Associated Diagnosis Comments XR ANKLE RT MIN 3V 04/18/2024 1: 00 PM EDT documented in this encounter Results * XR ANKLE RT MIN 3V (04/18/2024 1:00 PM EDT) Anatomical Region Laterality Modality Other 04/18/2024 1:00 PM EDT Narrative 04/18/2024 1:03 [place] [address] XRay Report Signed Patient: KOLBY CARRERA MR#: [id number] : 2005 Acct:[id number] Age/Sex: 18 / F ADM Date: 04/17/24 Loc: [facility] Attending Dr: Orlando Boogie D.P.M. Ordering Physician: Orlando Boogie D.P.M. Date of Service: 04/17/24 Procedure(s): XR ankle RT min 3V Accession Number(s): [id number] cc: Orlando Boogie D.P.M.; Alberto Reid M.D. [facility] [place] [id number] Patient Name: KOLBY CARRERA MRN: [id number] date: 2005 Sex: F Assigned Patient Location: Current Patient Location: Accession/Order Number: [id number] Exam Date: 04/17/2024 08:34 Report Date: 04/18/2024 13:00 At the request of: ORLANDO BOOGIE Procedure: XR ankle RT min 3V PROCEDURE: XR ankle RT min 3V COMPARISON: None. HISTORY: RIGHT ANKLE PAIN FINDINGS: BONES:No fracture, acute abnormality, or significant arthropathy. SOFT TISSUES:Negative. No visible soft tissue swelling. EFFUSION:None visible. OTHER: Negative. XR/XR ankle RT min 3V IMPRESSION: No acute radiographic abnormality Electronically authenticated by: LAST POND Date: 04/18/2024 13:00 Dictated By: Last Pond M.D. Signed By: 04/18/24 1303 DD/ 1300 TD/TT: Seed Collector: Procedure Note Radiology, Radiologist, MD - 04/18/2024 [facility] [place] [id number] XRay Report Signed Patient: KOLBY CARRERA LMR#: [id number] : 2005cct:[id number] Age/Sex: 18 / FADM Date: 04/17/24 Loc: [facility] Attending Dr: Orlando Boogie D.P.M. Ordering Physician: Orlando Boogie D.P.M. Date of Service: 04/17/24 Procedure(s): XR ankle RT min 3V Accession Number(s): [id number] cc: Orlando Boogie D.P.M.; Alberto Reid M.D. [place] [id number] Patient Name: KOLBY CARRERA MRN: [id number] date: 2005 Sex: F Assigned Patient Location: EC Current Patient Location: Accession/Order Number: [id number] Exam Date: 04/17/2024 08:34 Report Date: 04/18/2024 13:00 At the request of: ORLANDO BOOGIE Procedure: XR ankle RT min 3V PROCEDURE: XR ankle RT min 3V COMPARISON: None. HISTORY: RIGHT ANKLE PAIN FINDINGS: BONES:No fracture, acute abnormality, or significant arthropathy. SOFT TISSUES:Negative. No visible soft tissue swelling. EFFUSION:None visible. OTHER: Negative. XR/XR ankle RT min 3V IMPRESSION: No acute radiographic abnormality Electronically authenticated by: LAST POND Date: 04/18/2024 13:00 Dictated By: Last Pond M.D. Signed By:04/18/24 1303 DD/ 1300 TD/TT: Seed Collector: Generic External Data Provider [facility] Final Result documented in this encounter Visit Diagnoses Not on filedocumented in this encounter Care Teams Research Tech Relationship Specialty Start Date End Date Alberto Reid MD [address] [place] [address] PCP - General Family Medicine 08/25/23 Alberto Reid MD [address] [place] [address] PCP - [place] [employer] 01/06/2407/06 documented as of this encounter
--- OUTSIDE RECORDS SUMMARY | 2025-03-14 10:14 | XMS_ITS | Encounter Summary ---
Author Organization [facility] Address [address], [address] [place] [address] Care Team Providers Care Hostess Party Sales Representative Name Role Phone Alberto Reid MD Primary Care Provider + Reason for Visit * Reason Comments Medication Refill Encounter Details Date Type Department Care Team (Late st Contact Info) Description 06/27/2019 Refill [facility] [address] [phone] Joanie Gaines MD Medication Refill Social History [...] on filedocumented in this encounter Care Teams Hostess Party Sales Representative Relationship Specialty Start Date End Date Alberto Reid MD PCP - General Family Medicine 11/09/18 documented as of this encounter
--- OUTSIDE RECORDS SUMMARY | 2025-03-14 10:14 | XMS_ITS | Patient Health Record ---
Author Organization [facility] [place] Address [address] [place] [address] Care Team Providers Care Log Chipper Name Role Phone Alberto Reid MD Primary Care Provider Orlando Gandhi [phone] Allergies Allergen (clinical drug ingredient) Drug/Non Drug Allergy documented on EMR Reaction Allergy Type Onset Date Status Medicinal cephalosporin and acting as antibacterial agent (FN) Cephalosporins Unknown Drug Allergy Active Penicillin Unknown Drug Allergy Active Results Component Value Reference Range Notes XR foot RT min 3V (Not yet r eviewed by provider) Interpretation: Performing Lab: Notes/Report: Source Facility: [place] [address] XRay Report Signed Patient: KOLBY WHITTINGTON MR#: [id number] : 2005 Acct:[id number] Age/Sex: 18 / F ADM Date: 08/13/24 Loc: RAD Attending Dr: Orlando Boogie D.P.M. Ordering Physician: Orlando Boogie D.P.M. Date of Service: 08/13/24 Procedure(s): XR foot RT min 3V Accession Number(s): [id number] cc: Orlando Boogie D.P.M.; Alberto Reid M.D. [place] [id number] Patient Name: KOLBY WHITTINGTON MRN: [id number] date: 2005 Sex: F Assigned Patient Location: RAD Current Patient Location: RAD Accession/Order Number: [id number] Exam Date: 08/13/2024 10:45 Report Date: 08/13/2024 [...] M.D. Signed By: 08/13/242238 DD/ 36 TD/TT: Cleat Blanker: [place] [address] XRay Report Signed Patient: KOLBY WHITTINGTON MR#: [id number] : 2005 Acct:[id number] Age/Sex: 18 / F ADM Date: 08/13/24 Loc: RAD Attending Dr: Orlando Boogie D.P.M. Ordering Physician: Orlando Boogie D.P.M. Date of Service: 08/13/24 Procedure(s): XR foot RT min 3V Accession Number(s): [id number] cc: Orlando Boogie D.P.M.; Alberto Reid M.D. [place] [address] Patient Name: KOLBY WHITTINGTON MRN: [id number] date: 2005 Sex: F Assigned Patient Location: [facility] Current Patient Location: [facility] Accession/Order Numb er: [id number] Exam Date: 08/13/2024 10:45 Report Date: 08/13/2024 22:37 At the request of: ORLANDO BOOGIE Procedure: XR foot RT min 3V EXAM: XR foot RT min 3V HISTORY: Right Foot Pain COMPARISON: None. FINDINGS/IMPRESSION: 1. No acute fracture or dislocation. 2. Normal alignment of the forefoot. 3. No significant jung int degeneration. Electronically authe nticated by: FREYA WALTON Date: 08/13/2024 22:37 Dictated By: Freya Walton M.D. Signed By: 08/13/242238 DD/ 36 TD/TT: Cleat Blanker: XR ankle RT min 3V (Not yet reviewed by provider) Interpretation: Performing Lab: Notes/Report: Source Facility: [place] [address] [place] [address] XRay Report Signed Patient: KOLBY CARRERA MR#: [id number] : 2005 Acct:[id number] Age/Sex: 18 / F ADM Date: 04/17/24 Loc: EC Attending Dr: Orlando Boogie D.P.M. Ordering Physician: Orlando Boogie D.P.M. Date of Service: 04/17/24 Procedure(s): XR ankle RT min 3V Accession Number(s): [id number] cc: Orlando Boogie D.P.M.; Alberto Reid M.D. [place] [address] Patient Name: KOLBY CARRERA MRN: [id number] date: 2005 Sex: F Assigned Patient Location: Current Patient Location: Accession/Order Number: [id number] Exam Date: 04/17/2024 08:34 Report Date: 04/18/2024 [...] Signed By: 04/18/24 1303 DD/ 1300 TD/TT: Cleat Blanker: [place] [address] XRay Report Signed Patient: CASSANDRA CARRERA MR#: [id number] : 2005 Acct:[id number] Age/Sex: 18 / F ADM Date: 04/17/24 Loc: EC Attending Dr: Orlando Boogie D.P.M. Ordering Physician: Orlando Boogie D.P.M. Date of Service: 04/17/24 Procedure(s): XR ankle RT min 3V Accession Number(s): [id number] cc: Orlando Boogie D.P.M.; Alberto Reid M.D. [place] [id number] Patient Name: KOLBY CARRERA MRN: [id number] date: 2005 Sex: F Assigned Patient Location: EC Current Patient Location: Accession/Order Numb er: [id number] Exam Date: 04/17/2024 08:34 Report Date: 04/18/2024 13:00 At the request of: ORLANDO BOOGIE Procedure: XR ankle RT min 3V PROCEDURE: XR ankle RT min 3V COMPARISON: None. HISTORY: RIGHT ANKLE PAIN FINDINGS: BONES:No fracture, a cute abnormality, or significant arthropathy. SOFT TISSUES:Negativ e. No visible soft tissue swelling. EFFUSION:None visible. OTHER: Negative. X R/XR ankle RT min 3V IMPRESSION: No acute radiographi c abnormality Electronically authe nticated by: LAST POND Date: 04/18/2024 13:00 Dictated By: Last Pond M.D. Signed By: 04/18/24 1303 DD/ 1300 TD/TT: Cleat Blanker: Reason For Referral Reason evaluation and treat ment. Patient took PT order with her today. Diagnosis 1 Left ankle pain (M25 .572) Referral Organization [facility] Referring Provider First Name Orlando Referring Provider Last Name Chuyita Referring Provider Speciality Podiatry Referred Provider Specialty Physical Med icine and Rehabilitation Referral Priority Routine Reason records release Diagnosis 1 Left ankle pain (M25 .572) Referral Organization [facility]) Referring Provider First Name Orlando Referring Provider Last Name Chuyita Referring Provider Speciality Podiatry Referred Provider Alberto Reid Referred Provider Specialty Primary Care Referral Priority Routine Medications Medication SIG (Take, Route, Frequency, Duration) Notes Start Date End Date Status predniSONE 10 MG 3 tablets once a day for 3 days, 2 tablets once a day for 3 days, 1 tablet once a day for 3 days Orally for 9 days 08/13/2024 Active Topamax 100 MG 1 tablet Orally Once a day 04/17/2024 Active Singulair 10 MG 1 tablet Orally Once a day 04/17/2024 Active Simpesse 0.15-0.03 &0.01 MG 1 tablet Orally Once a day 04/17/2024 Active dexAMETHasone Sodium Phosphate 4 MG/ML 1.5-2.5ml topically up to 3 times weekly with physical therapy for 30 days 04/17/2024 Not-Taking Albuterol Sulfate HFA 108 (90 Base) MCG/ACT 1 puff as needed Inhalation every 4 hrs 04/17/2024 Active Relpax 40 MG 1 tablet Orally Once a day 04/17/2024 Active Meloxicam 15 MG 1 tablet Orally Once a day for 30 days 04/17/2024 Not-Taking Social History Tobacco Use: Social History Observation Description Date Details (start date - stop date) Never Smoker NA - NA Tobacco Control (Standard) Question Answer Notes Tobacco use: Nonsmoker Problems Problem Type SNOMED Code ICD Code Onset Dates Problem Status W/U Status Risk Notes Problem Arthralgia of the ankle and/or foot (914917923) Right ankle pain (M25.571) Active confirmed Problem Arthralgia of the ankle and/or foot (889364215) Left ankle pain (M25.572) Active confirmed Vital Signs Heart Rate 87 /min 08/13/2024 Temperature 97.7 degrees Fahrenheit 04/17/2024 Respiratory Rate 16 /min 08/13/2024 Height 67 in 08/13/2024 BMI Percentile 53.04 % 08/13/2024 Weight 139 lbs 08/13/2024 BMI 21.77 kg/m2 08/13/2024 Encounters Encounter Location Date Provider Diagnosis [facility] [address] [place] [address] 08/13/2024 [facility] [address] [place] [place] [address] 10/03/2024 [facility] [address] [place] [address] 08/13/2024 Orlando Boogie Right foot pain M79.671 and Posterior tibial tendinitis, right leg M76.821 [facility] [address] [place] [address] [place] [address] 04/17/2024 Orlando Boogie Right ankle pain M25.571 and Posterior tibial tendinitis, right leg M76.821 Assessments Encounter Date Diagnosis (ICD Code) Assessment Notes Treatment Notes Treatment Clinical Notes Section Notes 04/17/2024 Right ankle pain (ICD-10 - M25.571) 04/17/2024 Posterior tibial tendinitis, right leg (ICD-10 - M76.821) 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 She has noticed her arch height collapsing over the last couple of years and relates that her mother had a very similar issue and required surgery. She is attempted ibuprofen and Tylenol without much help. Pain and dysfunction is affecting activities of daily living and recreation.I recommended ASO ankle bracing and she was fitted today. I prescribed meloxicam 15 mg as well as physical therapy with iontophoresis. She will do therapy on or near campus which is at [facility]. Family will call if any further documentation is needed given this order [place] need to be filled out of state. Patient will follow-up in 6 weeks but if doing well will call for any updates given the distance and her schedule.If patient would ever need surgery I would need foot x-rays as we only obtained ankle x-rays today 08/13/2024 Right foot pain (ICD-10 - M79.671) 08/13/2024 Posterior tibial tendinitis, right leg (ICD-10 - M76.821) Patient presents with her mother. Patient is a freshman at [employer] and has attempted meloxicam, ibuprofen, ASO ankle brace and physical therapy without any help. She has a great deal of issues walking long distances around campus to get to her classes and requested handicap placard which I provided so she can more easily attend her lectures. I provided information on an alternative ankle brace that I have her recommended she try given the ASO did not help much. She was fitted and dispensed a cam boot which she may use at her discretion particularly on bad days. Prescription for prednisone was also provided. I did offer a prescription for an alternative NSAID such as Lodine or diclofenac and patient or mother will call if they would like this prescription sent as well.Ultimately the bulk of our conversation regarding management of her significant flexible flatfoot. I discussed surgical reconstruction which patient would like to proceed with but after this semester. Depending on when the patient would like to undergo surgery she may need an MRI to assess if posterior tibial tendon repair or advancement is necessary in addition to osteotomies.Carlos serrano will call to reserve surgery date and/or follow-up appointment in the upcoming months once she reviews her schedule for the . Plan Of Treatment Pending Test Test Name Order Date XR Ankle RT (3 views) * (161) 04/17/2024 XR Foot RT (3 views) * 08/13/2024 XR ankle RT min 3V 04/18/2024 XR foot RT min 3V 08/13/2024 Insurance Providers Payer Name Payer Address Payer Phone Subscriber Number Group Number Insured Name Patient Relationship to Insured Coverage Start Date Coverage End Date BCBS OUT OF STATE [address] [place] [address] [id number] Kolby Oliva Self - patient is the insured Medical (General) History Medical History History ICD Code asthma Surgical History Surgery Date(Month/Year) Cholecystectomy ear
--- OUTSIDE RECORDS SUMMARY | 2025-03-14 10:14 | XMS_ITS | Encounter Summary ---
Author Organization [facility] Address [address] [place] [address] Care Team Providers Care Pipe Smoking Machine Operator Name Role Phone Marek Enamorado MD Primary Care Provider [phone] Marek Enamorado MD Unavailable Encounter Details Date Type Department Care Team (Late Contact Info) Description 02/27/2024 Clinisync Result Encounter [facility] External Department Unsolicited Marek Enamorado MD [address] [place] [address] Social History Tobacco Use Types Packs/Day Years [...] 9:45 AM EDT Office Visit [facility] [address] [place] [address] Marek Enamorado MD [address] [place] [address] documented as of this encounter Procedures Procedure Name Priority Date/Time Associated Diagnosis Comments NM HEPATOBILIARY SCAN W PHARMACOLOGICAL INTERVENTION 02/27/2024 2:15 PM EDT documented in this encounter Results * NM HEPATOBILIARY SCAN W PHARMACOLOGICAL INTERVENTION (02/27/2024 2:15 PM EDT) Anatomical Region Laterality Modality Radiographic Kiara ging 02/27/2024 2:15 PM EDT Narrative 02/27/2024 2:17 [place] [address] Nuclear Medicine Report Signed Patient: URSZULA CARRERA MR#: [id number] : 2005 Acct:[id number] Age/Sex: 18 / F ADM Date: 02/27/24 Loc: [place] Attending Dr: Marek Enamorado M.D. Ordering Physician: Marek Enamorado M.D. Date of Service: 02/27/24 Procedure(s): VT hepatobiliary w pharm Accession Number(s): [id number] cc: Marek Enamorado M.D. [place] [address] Patient Name: URSZULA CARRERA MRN: [id number] date: 2005 Sex: F Assigned Patient Location: [place] Current Patient Location: [place] Accession/Order Number: [id number] Exam Date: 02/27/2024 07:50 Report Date: 02/27/2024 14:15 At the request of: MAREK ENAMORADO Procedure: VT hepatobiliary w pharm EXAMINATION: VT hepatobiliary w pharm HISTORY: RIGHT UPPER QUADRANT PAIN after eating occurring over past several months COMPARISON: No relevant comparison available. TECHNIQUE: Radionuclide hepatobiliary imaging was performed after intravenous injection of 4.9 mCi Tc-99m LALO derivative with sequential acquisitions every 1 minute for one hour. Hepatobiliary imaging with gallbladder ejection fraction analysis was then performed with sequential imaging every 1 minute for 60 minutes following ingestion of 8 oz. Ensure Plus. FINDINGS: LIVER: Normal, prompt and uniform radiotracer uptake and clearing. BILIARY DUCTS: Normal radioisotopic biliary excretion. GALLBLADDER: Normal with no evidence of cystic duct obstruction. INTESTINE: Normal with no evidence of common biliary ductal obstruction. EJECTION FRACTION: 37 % within 60 minutes. (Normal EF > 38%). OTHER: Negative. VT/VT hepatobiliary w pharm IMPRESSION: 1. Abnormal, low gallbladder ejection fraction, 37% (normal is greater than 38%). There is normal filling of the gallbladder and there is emptying of the gallbladder, but a slow rate. Consider biliary dyskinesia or partial obstruction. Electronically authenticated by: VIRGILIO ULRICH Date: 02/27/2024 14:15 Dictated By: Virgilio Ulrich M.D. Signed By: 02/27/24 1417 DD/ 1415 TD/TT: Agricultural Science Professor: Procedure Note Radiology, Radiologist, MD - 02/27/2024 [place] [address] Nuclear Medicine Report Signed Patient: URSZULA CARRERA R#: [id number] : 2005cct:[id number] Age/Sex: 18 FADM Date: 02/27/24 Loc: [place] Attending Dr: Marek Enamorado M.D. Ordering Physician: Marek Enamorado M.D. Date of Service: 02/27/24 Procedure(s): VT hepatobiliary w pharm Accession Number(s): [id number] cc: Marek Enamorado M.D. [place] [id number] Patient Name: URSZULA CARRERA MRN: [id number] date: 2005 Sex: F Assigned Patient Location: [place] Current Patient Location: [place] Accession/Order Number: [id number] Exam Date: 02/27/2024 07:50 Report Date: 02/27/2024 14:15 At the request of: MAREK ENAMORADO Procedure: VT hepatobiliary w pharm EXAMINATION: VT hepatobiliary w pharm HISTORY: RIGHT UPPER QUADRANT PAIN after eating occurring over pastseveral months COMPARISON: No relevant comparison available. TECHNIQUE: Radionuclide hepatobiliary imaging was performed afterintravenous injection of 4.9 mCi Tc-99m LALO derivative with sequential acquisitionsevery 1 minute for one hour. Hepatobiliary imaging with gallbladder ejectionfraction analysis was then performed with sequential imaging every 1 minute for 60 minutes following ingestion of 8 oz. Ensure Plus. FINDINGS: LIVER: Normal, prompt and uniform radiotracer uptake and clearing. BILIARY DUCTS: Normal radioisotopic biliary excretion. GALLBLADDER: Normal with no evidence of cystic duct obstruction. INTESTINE: Normal with no evidence of common biliary ductal obstruction. EJECTION FRACTION: 37 % within 60 minutes. (Normal EF > 38%). OTHER: Negative. NM/NM hepatobiliary w pharm IMPRESSION: 1. Abnormal, low gallbladder ejection fraction, 37% (normal is greaterthan 38%). There is normal filling of the gallbladder and there is emptying ofthe gallbladder, but a slow rate. Consider biliary dyskinesia or partial obstruction. Electronically authenticated by: VIRGILIO ULRICH Date: 02/27/2024 14:15 Dictated By: Virgilio Ulrich M.D. Signed By:02/27/24 1417 DD/ 1415 TD/TT: Agricultural Science Professor: Marek Enamorado MD IMG XR PROCEDURES Final Result documented in this encounter Visit Diagnoses Not on filedocumented in this encounter Care Teams Pipe Smoking Machine Operator Relationship Specialty Start Date End Date Marek Enamorado MD [address] [place] [address] PCP - General Family Medicine 08/25/23 Marek Enamorado MD [address] [place] [address] PCP - [employer] 01/06/2407/06 documented as of this encounter
[2025-03-14 10:39] LABS: Hematocrit 39.3 % (36.0-48.0); Hemoglobin 13.9 g/dL (12.0-16.0); Immature Granulocytes Abs Auto 0.01 10^3/uL (0.00-0.03); Immature Granulocytes Pct Auto 0.2 % (0.0-0.5); Lymphocytes Absolute Auto 2.2 10^3/uL (1.2-3.8); Mean Corpuscular HGB Conc 35.4 g/dL (29.9-35.2); Mean Corpuscular Hemoglobin 34.6 pg (26.7-34.0); Mean Corpuscular Volume 97.8 fL (81.0-99.0); Platelet Count 273 10^3/uL (150-450); Red Blood Count 4.02 10^6/uL (4.20-5.40); White Blood Count 6.2 10^3/uL (4.0-11.0)
[2025-03-14 11:35] LABS: Alanine Aminotransferase 19 U/L (14-59); Albumin Globulin Ratio 1.4; Albumin Level 3.9 g/dL (3.4-5.0); Alkaline Phosphatase 56 U/L (46-116); Anion Gap 14.5; Aspartate Amino Transferase 14 U/L (15-37); Blood Urea Nitrogen 14.0 mg/dL (6.4-19.3); Calcium 8.8 mg/dL (8.5-10.1); Carbon Dioxide 21.2 mmol/L (21.0-32.0); Chloride 107 mmol/L (98-107); Estimated GFR (African America >60 (>=60 mL/min/1.73m^2); Estimated GFR (Non-African Ame >60 (>=60 mL/min/1.73m^2); Globulin 2.8 g/dL; Glucose 107 mg/dL (74-106); Magnesium 2.0 mg/dL (1.8-2.4); Potassium 3.7 mmol/L (3.5-5.1); Sodium 139 mmol/L (136-145); TSH W/ REFLEX FT4 1.619 uIU/mL (0.516-4.130); Total Protein 6.7 g/dL (6.4-8.2)
== END 2025-03-14 10:12 | disposition home or self-care (01) ==
LOC: CARD 10:11
PROVIDERS: PCP Family Medicine; Visit Provider Family Medicine
DX: R00.0 Tachycardia, unspecified (principal); R00.2 Palpitations
CPT/HCPCS: 36415; 80053; 83735; 84443; 85025; 93242

== ENCOUNTER 2025-03-26 14:12 | Outpatient (OUT) | payer BC, SELFPAY ==
--- OUTSIDE RECORDS SUMMARY | 2025-03-25 13:32 | XMS_ITS | Encounter Summary ---
Author Organization [facility] tem Address [id number] [address] [place] [address] Care Team Providers Care Handle Machine Operator Name Role Phone Alberto Reid MD Primary Care Provider [phone] Reason for Referral * Diagnostic Imaging (Emergency) - Closed Specialty Diagnoses / Procedures Referred By Dennis serrano Referred To Contact Radiology Diagnoses Arthralgia of right ankle Procedures CT ankle right without contrast Vic Hickman DPM [address] [place] [address], [address] [place] [address] Phone: tel: fax: Referral ID Status Reason Start Date Expiration Date Visits Re quested Visits Authorized [id number] Closed 03/24/2025 03/24/2026 1 1 Reason for Visit * Diagnostic Imaging (Emergency) - Closed Specialty Diagnoses / Procedures Referred By Dennis serrano Referred To Contact Radiology Diagnoses Arthralgia of right ankle Procedures CT ankle right without contrast Vic Hickman DPM [address] [place] [address], [address] [place] [address] Phone: tel: fax: Referral ID Status Reason Start Date Expiration Date Visits Re quested Visits Authorized [id number] Closed 03/24/2025 03/24/2026 1 1 Encounter Details Date Type Department Care Team (Latest Contact Info) Description 03/25/2025 1:32 PM EDT - 03/25/2025 11:59 PM EDT Hospital Encounter [facility] - [address] [address] Arthralgia of right ankle Discharge Disposition: Home Social History Tobacco Use Types Packs/Day Years [...] on file documented as of this encounter Medications at Time of Discharge albuterol (PROVENTIL HFA;VENTOLIN HFA) 90 mcg/actuation inhaler Inhale 2 puffs every 6 (six) hours as needed for wheezing. cetirizine (ZyrTEC) 1 mg/mL syrup Take 10 mg by mouth. cetirizine (ZyrTEC) 10 mg tablet Take 10 mg by mouth daily. fluticasone (FLOVENT HFA) 220 mcg/actuation inhaler Inhale 2 puffs 2 (two) times a day. fluticasone propionate (FLOVENT HFA) 110 mcg/actuation inhaler Inhale 1 puff 2 (two) times a day. L norgest/e.estradi oL-e.estrad (AMETHIA) 0.15 mg-30 mcg (84)/10 mcg (7) tablets,dose pack,3 month Take 1 tablet by mouth in the morning. 03/26/2024 loratadine (CLARITIN) 10 mg tablet Take 1 tablet (10 mg total) by mouth as needed. montelukast (SINGULAIR) 10 mg tablet Take 10 mg by mouth nightly. montelukast (SINGULAIR) 10 mg tablet TAKE 1 TABLET BY MOUTH DAILY FOR ASTHMA 11/19/2019 NORTREL 1/35, 28, 1-35 mg-mcg per tablet Take 1 tablet by mouth daily. 07/16/2020 documented as of this encounter Plan of Treatment Not on file documented as of this encounter Procedures Procedure Name Priority Date/Time Associated Diagnosis Comments CT ANKLE RT WO CONT STAT 03/25/2025 1 :43 PM EDT Arthralgia of right ankle documented in this encounter Results * CT ankle right without contrast (03/25/2025 1:43 PM EDT) Anatomical Region Laterality Modality MSK, Lower Extremities, Ankle, MSK Covera Right Computed Tomography 03/25/2025 1:50 PM EDT Narrative 03/25/2025 1:[address] ANKLE RT WO CONT CLINICAL INFORMATION: Arthralgia of right ankle COMPARISON: 11/11/2024. PROCEDURE: Routine CT of the right ankle was obtained without contrast. Sagittal and coronal reformats were obtained from the axial data. Automated exposure control was utilized. All CT scans at this facility use dose modulation, iterative reconstruction, and/or weight based dosing when appropriate to reduce radiation dose to as low as reasonably achievable. FINDINGS: Osteopenia. No definite fracture. Surgical fixation of the calcaneus. Mild soft tissue edema. No no ankle joint effusion. No marked degenerative changes. IMPRESSION: * Postoperative changes with severe disuse osteopenia. Finalized by Yvan Becerra MD on 03/25/2025 1:52 PM Procedure Note Yvan Becerra MD - 03/25/2025 CT ANKLE RT WO CONT CLINICAL INFORMATION: Arthralgia of right ankle COMPARISON: 11/11/2024. PROCEDURE: Routine CT of the right ankle was obtained without contrast. Sagittal andcoronal reformats were obtained from the axial data. Automated exposurecontrol was utilized. All CT scans at this facility use dose modulation,iterative reconstruction, and/or weight based dosing when appropriate toreduce radiation dose to as low as reasonably achievable. FINDINGS: Osteopenia. No definite fracture. Surgical fixation of the calcaneus. Mildsoft tissue edema. No no ankle joint effusion. No marked degenerativechanges. IMPRESSION: * Postoperative changes with severe disuse osteopenia. Finalized by Yvan Becerra MD on 03/25/2025 1:52 PM Vic Hickman DP IMG CT ORDERABLES Final Result documented in this encounter Visit Diagnoses Diagnosis Arthralgia of right ankle documented in this encounter Care Teams Handle Machine Operator Relationship Specialty Start Date End Date Alberto Reid MD PCP - General Family Medicine 10/14/18 documented as of this encounter
--- OUTSIDE RECORDS SUMMARY | 2025-03-26 14:15 | XMS_ITS | Encounter Summary ---
Author Organization [facility] Address [address], [address] [place] [address] Care Team Providers Care Carbonizer Tester Name Role Phone Alberto Reid MD Primary Care Provider + Reason for Visit * Reason Comments Medication Refill Encounter Details Date Type Department Care Team (Late st Contact Info) Description 06/27/2019 Refill [facility] [address] [phone] Joanie Gaines MD Medication Refill Social History [...] on filedocumented in this encounter Care Teams Carbonizer Tester Relationship Specialty Start Date End Date Alberto Reid MD PCP - General Family Medicine 11/09/18 documented as of this encounter
--- OUTSIDE RECORDS SUMMARY | 2025-03-26 14:15 | XMS_ITS | Encounter Summary ---
Author Organization [facility] Address [address] [facility] [place] [address] Care Team Providers Care Other Sales Support Worker Name Role Phone Alberto Reid MD Primary Care Provider [phone] Alberto Reid MD Unavailable Encounter Details Date Type Department Care Team (Late Contact Info) Description 04/18/2024 Orders Only [facility] [address] [place] [address] Oscar Boogie MD [address] [place] [address] [place] [address] Social History Tobacco Use Types Packs/Day Years [...] Visit [facility] [address] [place] [phone] Alberto Reid MD [address] [place] [address] documented as of this encounter Procedures Procedure [...] on filedocumented in this encounter Care Teams Other Sales Support Worker Relationship Specialty Start Date End Date Alberto Reid MD [address] [place] [address] PCP - General Family Medicine 08/25/23 Alberto Reid MD [address] [place] [address] PCP - Gustavo Kendrick 01/06/2407/06 documented as of this encounter
--- OUTSIDE RECORDS SUMMARY | 2025-03-26 14:15 | XMS_ITS | Encounter Summary ---
Author Organization [facility] Address [address] [place] [address] Care Team Providers Care Charger Tester Name Role Phone Marek Enamorado MD Primary Care Provider [phone] Marek Enamorado MD Unavailable Encounter Details Date Type Department Care Team (Late Contact Info) Description 02/27/2024 Clinisync Result Encounter [facility] External Department Unsolicited Marek Enamorado MD [address] [place] [address] Social History Tobacco Use Types [...] [facility] [address] [place] [address] Marek Enamorado MD [address] [place] [address] documented as of this encounter Procedures Procedure Name Priority Date/Time Associated Diagnosis Comments NM HEPATOBILIARY SCAN W PHARMACOLOGICAL INTERVENTION 02/27/2024 2:15 PM EDT documented in this encounter Results * NM HEPATOBILIARY SCAN W PHARMACOLOGICAL INTERVENTION (02/27/2024 2:15 PM EDT) Anatomical Region Laterality Modality Radiographic Kiara ging 02/27/2024 2:15 PM EDT Narrative 02/27/2024 2:17 [place] [address] Nuclear Medicine Report Signed Patient: URSZULA CARRERA MR#: [id number] : 2005 Acct:[id number] Age/Sex: 18 / F ADM Date: 02/27/24 Loc: [place] Attending Dr: Marek Enamorado M.D. Ordering Physician: Marek Enamorado M.D. Date of Service: 02/27/24 Procedure(s): [place] hepatobiliary w pharm Accession Number(s): [id number] cc: Marek Enamorado M.D. [place] [address] Patient Name: URSZULA CARRERA MRN: [id number] date: 2005 Sex: F Assigned Patient Location: [place] Current Patient Location: [place] Accession/Order Number: [id number] Exam Date: 02/27/2024 07:50 Report Date: 02/27/2024 [...] Signed By: 02/27/24 1417 DD/ 1415 TD/TT: Php Lamp Developer: Procedure Note Radiology, Radiologist, MD - 02/27/2024 [place] [address] Nuclear Medicine Report Signed Patient: URSZULA CARRERA R#: [id number] : 2005cct:[id number] Age/Sex: 18 FADM Date: 02/27/24 Loc: [place] Attending Dr: Marek Enamorado M.D. Ordering Physician: Marek Enamorado M.D. Date of Service: 02/27/24 Procedure(s): [place] hepatobiliary w pharm Accession Number(s): [id number] cc: Marek Enamorado M.D. The [place] [id number] Patient Name: URSZULA CARRERA MRN: [id number] date: 2005 Sex: F Assigned Patient Location: [place] Current Patient Location: [place] Accession/Order Number: [id number] Exam Date: 02/27/2024 07:50 Report Date: 02/27/2024 [...] M.D. Signed By:02/27/24 1417 DD/ 1415 TD/TT: Php Lamp Developer: Marek Enamorado MD IMG XR PROCEDURES Final Result documented in this encounter Visit Diagnoses Not on filedocumented in this encounter Care Teams Charger Tester Relationship Specialty Start Date End Date Marek Enamorado MD [address] [place] [address] PCP - General Family Medicine 08/25/23 Marek Enamorado MD [address] [place] [address] PCP - [place] [employer] 01/06/2407/06 documented as of this encounter
--- OUTSIDE RECORDS SUMMARY | 2025-03-26 14:15 | XMS_ITS | Encounter Summary ---
Author Organization [facility] Address [address] [facility] [place] [address] Care Team Providers Care Tanning Solution Maker Name Role Phone Alberto Reid MD Primary Care Provider [phone] Alberto Reid MD Unavailable Encounter Details Date Type Department Care Team ([facility] Contact Info) Description 04/01/2024 Orders Only [facility] [address] [place] [address] Alberto Reid MD [address] [place] [address] Social History Tobacco Use Types Packs/Day Years [...] Office Visit [facility] [address] [place] [address] Alberto Reid MD [address] [place] [address] documented as of this encounter Visit Diagnoses Not on filedocumented in this encounter Care Teams Tanning Solution Maker Relationship Specialty Start Date End Date Alberto eRid MD [address] [place] [address] PCP - General Family Medicine 08/25/23 Alberto Reid MD [address] [place] [address] PCP - [place] [employer] 01/06/2407/06 documented as of this encounter
--- OUTSIDE RECORDS SUMMARY | 2025-03-26 14:15 | XMS_ITS | Encounter Summary ---
Author Organization [facility] Address [address] [place] [address] Care Team Providers Care Pv Installer Tech Name Role Phone Alberto Reid MD Primary Care Provider [phone] Alberto Reid MD Unavailable Encounter Details Date [...] 05/26/2025 9:45 AM EDT [facility] [address] [place] [address] Alberto Reid MD [address] [place] [address] documented as of this encounter Procedures Procedure Name Priority Date/Time Associated Diagnosis Comments XR ANKLE RT MIN 3V 04/18/2024 1: 00 PM EDT documented in this encounter Results * XR ANKLE RT MIN 3V (04/18/2024 1:00 PM EDT) Anatomical Region Laterality Modality Other 04/18/2024 1:00 PM EDT Narrative 04/18/2024 1:03 [place] [address] XRay Report Signed Patient: KOLBY CARRERA MR#: [id number] : 2005 Acct:[id number] Age/Sex: 18 / F ADM Date: 04/17/24 Loc: [place] Attending Dr: Orlando Boogie D.P.M. Ordering Physician: Orlando Boogie D.P.M. Date of Service: 04/17/24 Procedure(s): XR ankle RT min 3V Accession Number(s): [id number] cc: Orlando Boogie D.P.M.; Alberto Reid M.D. The [place] [address] Patient Name: KOLBY CARRERA MRN: [id number] date: 2005 Sex: F Assigned Patient Location: Current Patient Location: Accession/Order Number: [id number] Exam Date: 04/17/2024 08:34 Report Date: 04/18/2024 [...] Signed By: 04/18/24 1303 DD/ 1300 TD/TT: Nursery School Attendant: Procedure Note Radiology, Radiologist, MD - 04/18/2024 The [place] [id number] XRay Report Signed Patient: KOLBY CARRERA LMR#: [id number] : 2005cct:[id number] Age/Sex: 18 / FADM Date: 04/17/24 Loc: [place] Attending Dr: Orlando Boogie D.P.M. Ordering Physician: Orlando Boogie D.P.M. Date of Service: 04/17/24 Procedure(s): XR ankle RT min 3V Accession Number(s): [id number] cc: Orlando Boogie D.P.M.; Alberto Reid M.D. [place] [id number] Patient Name: KOLBY CARRERA MRN: [id number] date: 2005 Sex: F Assigned Patient Location: EC Current Patient Location: Accession/Order Number: [id number] Exam Date: 04/17/2024 08:34 Report Date: 04/18/2024 [...] M.D. Signed By:04/18/24 1303 DD/ 1300 TD/TT: Nursery School Attendant: Generic External Data Provider [facility] Final Result documented in this encounter Visit Diagnoses Not on filedocumented in this encounter Care Teams Pv Installer Tech Relationship Specialty Start Date End Date Alberto Reid MD [address] [place] [address] PCP - General Family Medicine 08/25/23 Alberto Reid MD [address] [place] [address] PCP - [place] [employer] 01/06/2407/06 documented as of this encounter
--- OUTSIDE RECORDS SUMMARY | 2025-03-26 14:15 | XMS_ITS | Encounter Summary ---
Author Organization [facility] Address [address] [place] [address] Care Team Providers Care Corporate Securities Research Analyst Name Role Phone Marek Enamorado MD Primary Care Provider [phone] Marek Enamorado MD Unavailable Encounter Details Date Type Department Care Team (Late Contact Info) Description 01/27/2024 Clinisync Result Encounter [facility] External Department Unsolicited Marek Enamorado MD [address] [place] [address] Social History Tobacco Use Types [...] 05/26/2025 9:45 AM EDT Office Visit [facility] [address] [place] [address] Marek Enamorado MD [address] [place] [address] documented as of this encounter Procedures Procedure Name Priority Date/Time Associated Diagnosis Comments US RIGHT UPPER QUADRANT 01/27/2024 11:25 AM EDT documented in this encounter Results * US RIGHT UPPER QUADRANT (01/27/2024 11:25 AM EDT) Anatomical Region Laterality Modality Other 01/27/2024 11:2 5 AM EDT Narrative 01/27/2024 11:28 AM EDT [address] [address] Ultrasound Report Signed Patient: KOLBY CARRERA MR#: [id number] : 2005 Acct:[id number] Age/Sex: 18 / F ADM Date: 01/27/24 Loc: US Attending Dr: Marek Enamorado M.D. Ordering Physician: Marek Enamorado M.D. Date of Service: 01/27/24 Procedure(s): US right upper quadrant Accession Number(s): [id number] cc: Marek Enamorado M.D. [place] [id number] Patient Name: KOLBY CARRERA MRN: [id number] date: 2005 Sex: F Assigned Patient Location: US Current Patient Location: US Accession/Order Number: [id number] Exam Date: 01/27/2024 10:25 Report Date: 01/27/2024 11:25 At the request of: MAREK ENAMORADO Procedure: US right upper quadrant EXAM: US right upper quadrant HISTORY: . RIGHT UPPER QUADRANT PAIN . COMPARISON: None. TECHNIQUE: Grayscale and color imaging was performed FINDINGS: The pancreas is unremarkable. The liver appears normal in size. No masses are noted. Color-flow is noted in the portal and hepatic veins. The gallbladder appears normal with no stones or sludge identified. Common bile duct is normal measuring 3 mm. No fluid is noted in the right upper quadrant. Right kidney measures 10.8 x 3.6 x 4.6 cm. Color-flow is noted. No solid renal cortical masses or hydronephrosis is noted. US/US right upper quadrant IMPRESSION: Normal ultrasound of the right upper quadrant. Electronically authenticated by: LAST AGUSTIN Date: 01/27/2024 11:25 Dictated By: Last Agustin M.D. Signed By: 01/27/24 1128 DD/ 24 TD/TT: Cna Hha: Procedure Note Radiology, Radiologist, - 01/29/2024 The [place] [id number] Ultrasound Report Signed Patient: KOLBY CARRERA LMR#: [id number] : 2005cct:[id number] Age/Sex: 18 / FADM Date: 01/27/24 Loc: US Attending Dr: Marek Enamorado M.D. Ordering Physician: Marek Enamorado M.D. Date of Service: 01/27/24 Procedure(s): US right upper quadrant Accession Number(s): [id number] cc: Marek Enamorado M.D. The [place] [id number] Patient Name: KOLBY CARRERA MRN: [id number] date: 2005 Sex: F Assigned Patient Location: US Current Patient Location: US Accession/Order Number: [id number] Exam Date: 01/27/2024 10:25 Report Date: 01/27/2024 11:25 At the request of: MAREK ENAMORADO Procedure: US right upper quadrant EXAM: US right upper quadrant HISTORY: . RIGHT UPPER QUADRANT PAIN . COMPARISON: None. TECHNIQUE: Grayscale and color imaging was performed FINDINGS: The pancreas is unremarkable. The liver appears normal in size. No masses are noted. Color-flow is notedin the portal and hepatic veins. The gallbladder appears normal with no stones or sludge identified. Common bile duct is normal measuring 3 mm. No fluid is noted in the right upper quadrant. Right kidney measures 10.8 x 3.6 x 4.6 cm. Color-flow is noted. No solidrenal cortical masses or hydronephrosis is noted. US/US right upper quadrant IMPRESSION: Normal ultrasound of the right upper quadrant. Electronically authenticated by: LAST AGUSTIN Date: 01/27/2024 11:25 Dictated By: Last Agustin M.D. Signed By:01/27/24 1128 DD/ 24 TD/TT: Cna Hha: us Marek Enamorado MD [facility] Final Result documented in this encounter Visit Diagnoses Not on filedocumented in this encounter Care Teams Corporate Securities Research Analyst Relationship Specialty Start Date End Date Marek Enamorado MD [address] [place] [address] PCP - General Family Medicine 08/25/23 Marek Enamorado MD [address] [place] [address] PCP - [place] [employer] 01/06/2407/06 documented as of this encounter
--- NOTE | 2025-03-26 14:16 | XR_ITS ---
[place] [address] Patient Name: KOLBY WHITTINGTON MRN: [id number] date: 2005 Sex: F Assigned Patient Location: [facility] Current Patient Location: [facility] Accession/Order Number: [id number] Exam Date: 03/26/2025 15:56 Report Date: 03/26/2025 15:59 At the request of: ORLANDO RAMIREZ DPM Procedure: XR ankle RT min 3V 3 views right ankle plain film standing position COMPARISON: 04/17/2024 HISTORY: Chronic right ankle pain. Surgery December 04, 2024 ACUTE FINDINGS: Chronic bony changes. DEGENERATIVE CHANGE: Moderate degeneration SOFT TISSUE FINDINGS: Unremarkable JOINT EFFUSION: None POSTOP CHANGES: Calcaneal hardware intact. BONE MINERALIZATION: Adequate XR/XR ankle RT min 3V IMPRESSION: No bony or hardware complication. Impression dictated by: Jayjay Blanco M.D. 03/26/2025 3:59 PM Dictation Location: [place] [address] Electronically authenticated by: [id number] Date: 03/26/2025 15:59
--- OUTSIDE RECORDS SUMMARY | 2025-03-26 14:16 | XMS_ITS | Encounter Summary ---
Author Organization [facility] Address [address] [place] [address] Care Team Providers Care Field Project Manager Name Role Phone Alberto Reid MD Primary Care Provider [phone] Encounter Details Date Type Department Care Team [...] 05/26/2025 9:45 AM EDT [facility] [address] [place] [address] Alberto Reid MD [address] [place] [address] documented as of this encounter Procedures Procedure Name Priority Date/Time Associated Diagnosis Comments XR FOOT RT MIN 3V 08/13/2024 10: 37 PM EST documented in this encounter Results * XR FOOT RT MIN 3V (08/13/2024 10:37 PM EST) Anatomical Region Laterality Modality Other 08/13/2024 10:3 7 PM EST Narrative 08/13/2024 10:39 [place] [address] XRay Report Signed Patient: KOLBY WHITTINGTON MR#: [id number] : 2005 Acct:[id number] Age/Sex: 18 / F ADM Date: 08/13/24 Loc: RAD Attending Dr: Orlando Boogie D.P.M. Ordering Physician: Orlando Boogie D.P.M. Date of Service: 08/13/24 Procedure(s): XR foot RT min 3V Accession Number(s): [id number] cc: Orlando Boogie D.P.M.; Alberto Reid M.D. The [place] [address] Patient Name: KOLBY WHITTINGTON MRN: [id number] date: 2005 Sex: F Assigned Patient Location: [facility] Current Patient Location: [facility] Accession/Order Number: [id number] Exam Date: 08/13/2024 10:45 Report Date: 08/13/2024 [...] M.D. Signed By: 08/13/242238 DD/ 36 TD/TT: Rouge Mixer: Procedure Note Radiology, Radiologist, MD - 08/14/2024 [place] [address] XRay Report Signed Patient: KOLBY WHITTINGTON LMR#: [id number] : 2005cct:[id number] Age/Sex: 18 / FADM Date: 08/13/24 Loc: RAD Attending Dr: Orlando Boogie D.P.M. Ordering Physician: Orlando Boogie D.P.M. Date of Service: 08/13/24 Procedure(s): XR foot RT min 3V Accession Number(s): [id number] cc: Orlando Boogie D.P.M.; Alberto Reid M.D. The [place] [address] Patient Name: KOLBY WHITTINGTON MRN: [id number] date: 2005 Sex: F Assigned Patient Location: RAD Current Patient Location: RAD Accession/Order Number: [id number] Exam Date: 08/13/2024 10:45 Report Date: 08/13/2024 [...] Walton M.D. Signed By:08/13/242238 DD/ 36 TD/TT: Rouge Mixer: Generic External Data Provider [facility] Final Result documented in this encounter Visit Diagnoses Not on filedocumented in this encounter Care Teams Field Project Manager Relationship Specialty Start Date End Date Alberto Reid MD [address] [place] [address] PCP - General Family Medicine 08/25/23 documented as of this encounter
--- OUTSIDE RECORDS SUMMARY | 2025-03-26 14:16 | XMS_ITS | Encounter Summary ---
Author Organization [facility] Address [address] [place] [address] Care Team Providers Care Medical Or Surgical Instrument Maker Name Role Phone Alberto Reid MD Primary Care Provider [phone] Encounter Details Date Type Department Care Team (Late st Contact Info) Description 03/17/2025 Results Follow-Up [facility] [address] [place] [address] Alberto Reid MD [address] [place] [address] ALL CBC WITH AUTO DIFF, CCF CMP (CMP) (FOR REMOTE FH USE), ALL MAGNESIUM, TSH W/REFLEX T4 Social History Tobacco Use Types Packs/Day Years [...] 05/26/2025 9:45 AM EDT Office Visit [facility] [address] [place] [address] Alberto Reid MD [address] [place] [address] documented as of this encounter Visit Diagnoses Not on filedocumented in this encounter Care Teams Medical Or Surgical Instrument Maker Relationship Specialty Start Date End Date Alberto Reid MD [address] [place] [address] PCP - General Family Medicine 08/25/23 documented as of this encounter
--- OUTSIDE RECORDS SUMMARY | 2025-03-26 14:16 | XMS_ITS | Encounter Summary ---
Author Organization [facility] Address [address] [place] [address] Care Team Providers Care Tractor Trailer Mechanic Name Role Phone Alberto Reid MD Primary Care Provider Encounter Details Date Type Department Care Team (Late st Contact Info) Description 03/19/2025 Telephone [facility] [address] [place] [phone] Alberto Reid MD [address] [place] [address] Social History Tobacco Use Types Packs/Day Years [...] encounter Miscellaneous Notes * Telephone Encounter - Alberto Reid MD - 03/19/2025 2:50 PM EDT Script sent. If no better over next few days will need seen. MAN * Telephone Encounter - NAHED RICHARDSON - 03/19/2025 1:05 PM EDT Patient called state she has a cough with green mucus and a low grade fever. Is requesting an antibiotic and possible steroid.clm documented in this encounter Plan of Treatment Upcoming Encounters Date Type Department Care Team (Late st Contact Info) Description 05/26/2025 9:45 AM EDT Office Visit [facility] [address] [place] [address] Alberto Reid MD [address] [place] [address] documented as of this encounter Visit Diagnoses Diagnosis Acute non-recurrent pansinusitis documented in this encounter Care Teams Tractor Trailer Mechanic Relationship Specialty Start Date End Date Alberto Reid MD [address] [place] [address] PCP - General Family Medicine 08/25/23 documented as of this encounter
--- OUTSIDE RECORDS SUMMARY | 2025-03-26 14:16 | XMS_ITS | Clinical Summary ---
Author Organization [facility] Address [address] [place] [address] Care Team Providers Care Hangersmith Name Role Phone Alberto Reid MD Primary Care Provider [phone] Allergies Active Allergy Reactions Criticality Noted Date [...] 2 puffs before bedtime. 12 g 5 024 Active montelukast (Singulair) 10 MG tablet Take 10 mg by mouth at bedtime Active ondansetron ODT (Zofran-ODT) 4 MG disintegrating tabletIndications :Migraine without aura and without status migrainosus, not intractable DISSOLVE 1 (ONE) TABLET ON THE TONGUE EVERY 6 HOURS NEEDED 30 tablet 2 024 Active L norgest/e.estradi ol-e.estrad (Simpesse) 0.15-0.03 &0.01 MG tablet tabletIndications :Irregular menstruation, unspecified Take 1 tablet by mouth Daily 91 tablet 3 024 Active benzonatate (Tessalon) 200 MG capsuleIndication s:Acute non-recurrent pansinusitis Take 1 capsule (200 mg) by mouth 3 (three) times a day as needed for cough Do not crush or chew. 20 capsule 1 Active rizatriptan HOME APPLIANCE INSTALLER (Maxalt-HOME APPLIANCE INSTALLER) 10 MG disintegrating tabletIndications :Migraine without aura and without status migrainosus, not intractable TAKE 1 TABLET BY MOUTH at the onset OF headache may repeat in 2 (TWO) HOURS once 9 tablet 3 Active hydrOXYzine HCl (Atarax) 25 MG tabletIndications :Urticaria, unspecified TAKE 1 TABLET BY MOUTH FOUR TIMES DAILY NEEDED 60 tablet 2 Active Mucinex D Max Strength 120-1200 MG tablet sustained-release 12 hourIndications:S easonal allergic rhinitis due to pollen TAKE 1 TABLET BY MOUTH TWICE DAILY NEEDED for congestion 60 tablet 3 Active topiramate (Topamax) 100 MG tabletIndications :Migraine without aura and without status migrainosus, not intractable TAKE 1 TABLET BY MOUTH THREE TIMES DAILY (IN THE MORNING, IN THE EVENING, and BEFORE bedtime) 90 tablet 3 Active levoFLOXacin (Levaquin) 750 MG tabletIndications :Acute non-recurrent pansinusitis Take 1 tablet (750 mg) by mouth Daily for 7 days 7 tablet 025 2024 Active predniSONE (Deltasone) 50 MG tabletIndications :Acute non-recurrent pansinusitis Take 1 tablet (50 mg) by mouth Daily for 6 days 6 tablet 024 2024 Discontinued(R eorder) topiramate (Topamax) 100 MG tabletIndications :Migraine without aura and without status migrainosus, not intractable TAKE 1 TABLET BY MOUTH THREE TIMES DAILY (IN THE MORNING, IN THE EVENING, and BEFORE bedtime) 90 tablet 3 024 2024 Discontinued levoFLOXacin (Levaquin) 750 MG tabletIndications :Acute non-recurrent pansinusitis Take 1 tablet (750 mg) by mouth Daily for 7 days 7 tablet 025 2024 Discontinued(R eorder) predniSONE (Deltasone) 50 MG tabletIndications :Acute non-recurrent pansinusitis Take 1 tablet (50 mg) by mouth Daily for 6 days 6 tablet 025 2024 Active Problems Problem Noted Date Diagnosed Date Palpitation 02/06/2025 Assessment & Plan (02/27/2025 3:10 PM EDT): Frequent symptoms causing lightheadedness. Check labs and Holter. Endometriosis 10/07/2024 Assessment & Plan (11/27/2024 10:04 AM EDT): Increased pain and follow with stock control supervisor. Assessment & Plan (10/07/2024 12:14 PM EST): Increased pain and follow with stock control supervisor. ROXANA (generalized anxiety disorder) 07/16/2024 Assessment & [...] PRN. Seasonal allergic rhinitis due to pollen 024 Assessment & Plan (02/27/2025 3:10 PM EDT): [...] Acute nonsuppurative otitis media of left ear 01/10/2001/25/2024 Assessment & Plan (01/10/2024 11:08 AM EDT): Start levaquin Acute right ankle pain 11/30/202302/28 Assessment & Plan (11/30/2023 10:35 AM EDT): Recent pain but no injury. Treat with prednisone. Ice and elevate PRN. Handout with ROM exercises to patient. Adjustment disorder with anxious mood 01/17/2023 09/05/2023 Disturbance in sleep behavior 01/17/2023 09/05/2023 Tension headache 01/17/2023 09/05/2023 Encounters Date Type Department Care Team Description 03/19/[address] [facility] [address] [place] [phone] Alberto Reid MD 03/17/2025 Results Follow-Up [facility] [address] [place] [address] Alberto Reid MD ALL CBC WITH AUTO DIFF, [facility] CMP (CMP) (FOR [facility]OTE [facility]), ALL MAGNESIUM, TSH W/REFLEX T4 03/17/[address] [facility] [address] [place] [address] Alberto Reid MD 03/14/2025 Clinisync Result Encounter [facility] External Department Unsolicited Alberto Reid MD 03/05/[address] [facility] [address] [place] [address] Alberto Reid MD Migraine without aura and without status migrainosus, not intractable 02/27/2025 2:45 PM EDT Office Visit [facility] [address] [place] [address] Alberto Reid MD Palpitation (Primary Dx); Migraine without aura and without status migrainosus, not intractable ; ROXANA (generalized anxiety disorder) ; Mild intermittent asthma without complication (HCC); Seasonal allergic rhinitis due to pollen 02/27/[address] [facility] [address] [place] [phone] Alberto Reid MD 02/05/[address] [facility] [address] [place] [address] Alberto Reid MD Rapid Heart Rate [...] 05/26/2025 9:45 AM EDT Office Visit [facility] [address] [place] [phone] Alberto Reid MD [address] [place] [address] Health Maintenance Due Date Last Done Comments Influenza Vaccine (#1) 2025 , 07/06/2023, 05/20/2022, Additional history exists Procedures Procedure Name Priority Date/Time Associated Diagnosis Comments TSH W/REFLEX T4 Routine 03/14/2025 10:17 AM EDT ALL MAGNESIUM Routine 03/14/2025 10:17 AM EDT [facility] CMP (CMP) (FOR [facility]OTE [facility]) Routine 03/14/2025 10:17 AM EDT ALL CBC WITH AUTO DIFF Routine 03/14/2025 10:17 AM EDT from Last 3 Months Results * TSH W/REFLEX T4 (03/14/2025 10:17 AM EDT) TSH 1.619 0.516 - 4.130 uIU/mL TBH 03/14/2025 10:1 7 AM EDT 03/14/2025 10:23 AM EDT Narrative [facility] - 03/14/2025 11:38 AM EDT us Alberto Reid MD LAB BLOOD ORDERABLES Final Resul t [facility] * ([facility]NORMAL) [facility] CMP (CMP) (FOR REMOTE [facility]) (03/14/2025 10:17 AM EDT) SODIUM 139 136 - 145 mmol/L TBH POTASSIUM 3.7 3.5 - 5.1 mmol/L TBH CHLORIDE 107 98 - 107 mmol/L TBH CARBON DIOXIDE 21.2 21.0 - 32.0 mmol/L TBH ANION GAP 14.5 TBH GLUCOSE 107(H) 74 - 106 mg/dL TBH BLOOD UREA NITROGEN 14.0 6.4 - 19.3 mg/dL TBH CREATININE 0.88 0.55 - 1.02 mg/dL TBH TBH EGFR-AF [place] >60 >=60 mL/min/1. 73m 2 TBH TBH EGFR-NON AF [place] >60 >=60 mL/min/1. 73m 2 TBH BUN CREATININE RATIO 15.9 TBH CALCIUM 8.8 8.5 - 10.1 mg/dL TBH BILIRUBIN TOTAL 0.3 0.2 - 1.0 mg/dL TBH ASPARTATE AMINO TRANSFERASE 14(L) 15 - 37 U/L TBH ALANINE AMINOTRANSFERASE 19 14 - 59 U/L TBH ALKALINE PHOSPHATASE 56 46 - 116 U/L TBH TOTAL PROTEIN 6.7 6.4 - 8.2 g/dL TBH ALBUMIN LEVEL 3.9 3.4 - 5.0 g/dL TBH GLOBULIN 2.8 g/dL TBH ALBUMIN GLOBULIN RATIO 1.4 TBH 03/14/2025 10:1 7 AM EDT 03/14/2025 10:23 AM EDT Narrative CLINISY[facility] - 03/14/2025 11:38 AM EDT Alberto Reid MD CLINISYYISEL Final Result Performing Organization Address City/[facility]/ZIP Co de Phone Number [facility] * ALL MAGNESIUM (03/14/2025 10:17 AM EDT) MAGNESIUM 2.0 1.8 - 2.4 mg/dL TB 03/14/2025 10:1 7 AM EDT 03/14/2025 10:23 AM EDT Narrative [facility] - 03/14/2025 11:38 AM EDT Alberto Reid MD CLINIS[facility]EL Final Result [facility] * (ABNORMAL) ALL CBC WITH AUTO DIFF (03/14/2025 10:17 AM EDT) TB WBC 6.2 4.0 - 11.0 10 3/uL TBH TBH RBC 4.02(L) 4.20 - 5.40 10 6/uL TBH TBH HGB 13.9 12.0 - 16.0 g/dL TBH TBH HCT 39.3 36.0 - 48.0 % TBH TBH MCV 97.8 81.0 - 99.0 fL TBH TBH MCH 34.6(H) 26.7 - 34.0 pg TBH TBH MCHC 35.4(H) 29.9 - 35.2 g/dL TBH TBH RDW 11.2 11.0 - 15.0 % TBH TBH PLT 273 150 - 450 10 3/uL TBH TBH MPV 10.1 9.5 - 13.5 fL TBH NEUTROPHILS PERCENT AUTO 46.7 43.0 - 75.0 % TBH LYMPHOCYTES PERCENT AUTO 36.0 20.5 - 60.0 % TBH MONOCYTES PERCENT AUTO 8.8 1.7 - 12.0 % TBH TBH EO % 7.7(H) 0.9 - 7.0 % TBH BASOPHILS PERCENT AUTO 0.6 0.2 - 2.0 % TBH IMMATURE GRANULOCYTES PCT AUTO 0.2 0.0 - 0.5 % TBH NEUTROPHILS ABSOLUTE AUTO 2.9 1.4 - 6.5 10 3/uL TBH LYMPHOCYTES ABSOLUTE AUTO 2.2 1.2 - 3.8 10 3/uL TBH MONOCYTES ABSOLUTE AUTO 0.6 0.3 - 0.8 10 3/uL TBH TBH EO # 0.5 0.0 - 0.7 10 3/uL TBH BASOPHILS ABSOLUTE AUTO 0.0 0.0 - 0.1 10 3/uL TBH IMMATURE GRANULOCYTES ABS AUTO 0.01 0.00 - 0.03 10 3/uL TBH 03/14/2025 10:1 7 AM EDT 03/14/2025 10:23 AM EDT Narrative [facility]IN[facility] - 03/14/2025 10:50 AM EDT us Alberto Reid MD [facility] Final Result [facility] from Last 3 Months Insurance [employer] [address] [place] [address] Care Teams Hangersmith Relationship Specialty Start Date End Date Alberto Reid MD [address] [place] [address] PCP - General Family Medicine 08/25/23
--- OUTSIDE RECORDS SUMMARY | 2025-03-26 14:16 | XMS_ITS | Encounter Summary ---
Author Organization [facility] Address [address] [place] [address] Care Team Providers Care Tavern Keeper Name Role Phone Alberto Reid MD Primary Care Provider [phone] Encounter Details Date Type Department Care Team ( Contact Info) Description 03/17/2025 Telephone [facility] [address] [place] [phone] Alberto Reid MD [address] [place] [phone] Social History Tobacco Use Types Packs/Day Years [...] * Telephone Encounter - NAHED RICHARDSON - 03/17/2025 10:40 AM EDT Patient called state she has a cough with green mucus and a low grade fever. Is requesting an antibiotic and possible steroid.clm documented in this encounter Plan of Treatment Upcoming Encounters Date Type Department Care Team ( Contact Info) Description 05/26/2025 9:45 AM EDT Office Visit [facility] [address] [place] [phone] Alberto Reid MD [address] [place] [address] documented as of this encounter Visit Diagnoses Not on filedocumented in this encounter Care Teams Tavern Keeper Relationship Specialty Start Date End Date Alberto Reid MD [address] [place] [address] PCP - General Family Medicine 08/25/23 documented as of this encounter
--- OUTSIDE RECORDS SUMMARY | 2025-03-26 14:16 | XMS_ITS | Encounter Summary ---
Author Organization [facility] tem Address [id number] [address] [place] [address] Care Team Providers Care Glove Operator Name Role Phone Alberto Reid MD Primary Care Provider [phone] Encounter Details Date Type Department Care Team (Latest Contact Info) Description 03/25/2025 Travel Social History Tobacco Use Types Packs/Day Years [...] on filedocumented in this encounter Care Teams Glove Operator Relationship Specialty Start Date End Date Alberto Reid MD PCP - General Family Medicine 10/14/18 documented as of this encounter
--- OUTSIDE RECORDS SUMMARY | 2025-03-26 14:16 | XMS_ITS | Encounter Summary ---
Author Organization [facility] Address [address] [facility] [place] [address] Care Team Providers Care Cemetery Worker Name Role Phone Alberto Reid MD Primary Care Provider [phone] Alberto Reid MD Unavailable Encounter Details Date Type Department Care Team ([facility] Contact Info) Description 06/18/2024 Orders Only [facility] [address] [place] [phone] Alberto Reid MD [address] [place] [phone] Social History Tobacco Use Types Packs/Day Years [...] Office Visit [facility] [address] [place] [phone] Alberto Reid MD [address] [phone] documented as of this encounter Visit Diagnoses Not on filedocumented in this encounter Care Teams Cemetery Worker Relationship Specialty Start Date End Date Alberto Reid MD [address] [place] [address] PCP - General Family Medicine 08/25/23 Alberto Reid MD [address] [place] [phone] PCP - [place] [employer] 01/06/2407/06 documented as of this encounter
--- OUTSIDE RECORDS SUMMARY | 2025-03-26 14:16 | XMS_ITS | Clinical Summary ---
Author Organization [facility] Address [address], [address] [place] [address] Care Team Providers Care Communication Clerk Name Role Phone Alberto Reid MD [...] by mouth 3 times daily Active rizatriptan (MAXALT-CLOTH LAMINATING SUPERVISOR) 10 MG disintegrating tablet Take 1 tablet [...] 07/02/2024, 09/08/2023 Medical Devices Implanted Type Area Facility Planner Device Identifier Shelf Expiration Date Model / Serial / Lot Screw Bne L50mm Dia7mm Xl Full Thrd Compr - [id number] Implanted:Qty: 2 on 12/04/2024 by Vic Hickman DPM at [facility] Right: Foot [employer] [id number] / / System Orthopedic 4.75 Mm Fdl - [id number] Implanted:Qty: 1 on 12/04/2024 by Vic Hickman DPM at [facility] Right: Foot [employer] 08/06/2028 [id number] / / [id number] [place] [address] [address] [place] [address] Care Teams Communication Clerk Relationship Specialty Start Date End Date Alberto Reid MD PCP - General Family Medicine 11/09/18
--- OUTSIDE RECORDS SUMMARY | 2025-03-26 14:16 | XMS_ITS | Clinical Summary ---
Author Organization [facility] tem Address [id number] [address] [place] [address] Care Team Providers Care Knockdown Worker Name Role Phone Alberto Reid MD Primary Care Provider [phone] Allergies Active Allergy Reactions Criticality Noted Date [...] Encounters Date Type Department Care Team Description 03/25/2025 1:32 PM EDT - 03/25/2025 11:59 PM EDT Hospital Encounter [facility] [place] [address] [place] [phone] Arthralgia of right ankle Discharge Disposition: Home 03/25/2025 Travel 01/05/2025 6:08 PM EDT - 01/05/2025 9:13 PM EDT Emergency [facility] - Emergency [address] [place] [phone] Abdias Sanchez MD Cellulitis, unspecified cellulitis site [...] :43 PM EDT Arthralgia of right ankle XR FOOT RT MIN 3 VWS STAT [...] EDT from Last 3 Months Results * CT ankle right without contrast [...] MD on 03/25/2025 1:52 PM Vic Hickman DPM IMG CT ORDERABLES Final Result * X-ray foot right minimum 3 views [...] Nasrin Johnston MD on 01/05/2025 7:39 PM Abdias Sanchez MD IMG DIAGNOSTIC IMAGING ORDERABL ES Final Result * Erythrocyte Sedimentation Rate (ESR) (01/05/2025 6:48 PM EDT) ESR, Erythrocyte Sedimentation Rate <1 0 - 20 mm/h 01/06/2025 10:19 AM EDT [facility] Blood Venous blood / Unknown 01/05/2025 6:48 PM EDT 01/05/2025 6:50 PM EDT us Abdias Sanchez MD LAB BLOOD ORDERABLES Final Resu lt [facility] [address] [place] [address], [place] [phone] * Lactate w/ Reflex (01/05/2025 6:48 PM EDT) LACTATE W/REFLEX 1.0 0.4 - 2.0 mmol/L 01/05/2025 7:08 PM EDT [facility] Blood Venous blood / Unknown 01/05/2025 6:48 PM EDT 01/05/2025 6:50 PM EDT Narrative [facility] - 01/05/2025 7:08 PM EDT Result did not trigger repeat Lactate, re-order if needed. us Abdias Sanchez MD LAB BLOOD ORDERABLES Final Resu lt [facility] [address] [place] [address], * (ABNORMAL) CBC auto differential (01/05/2025 6:48 PM EDT) WBC 8.2 4 - 11 x10E9/L 01/05/2025 7:08 PM EDT [facility] RBC Count 4.14 3.8 - 5.2 X10E12/L 01/05/2025 7:08 PM EDT [facility] Hemoglobin 13.8 11.7 - 15.5 g/dL 01/05/2025 7:08 PM EDT [facility] Hematocrit 39.9 35 - 47 % 01/05/2025 7:08 PM EDT [facility] MCV 97 80 - 100 fL 01/05/2025 7:08 PM EDT [facility] MCH 33.4 27 - 34 pg 01/05/2025 7:08 PM EDT [facility] MCHC 34.6 32 - 36 g/dL 01/05/2025 7:08 PM EDT [facility] RDW 13.1 11.5 - 15 % 01/05/2025 7:08 PM EDT [facility] Platelet Count 346 150 - 450 X10E9/L 01/05/2025 7:08 PM EDT [facility] MPV 7.7 7 - 12 fL 01/05/2025 7:08 PM EDT [facility] Neutrophils % 48.8 % 01/05/2025 7:08 PM EDT [facility] Lymphocytes % 33.2 % 01/05/2025 7:08 PM EDT [facility] Monocytes % 7.9 % 01/05/2025 7:08 PM EDT [facility] Eosinophils % 9.8 % 01/05/2025 7:08 PM EDT [facility] Basophils % 0.3 % 01/05/2025 7:08 PM EDT [facility] Neutrophils Absolute (A) 4.0 1.5 - 6.6 10*3/uL 01/05/2025 7:08 PM EDT [facility] Lymphocytes Absolute 2.7 1.0 - 3.5 10*3/uL 01/05/2025 7:08 PM EDT [facility] Monocytes Absolute 0.6 0.0 - 0.9 10*3/uL 01/05/2025 7:08 PM EDT [facility] Eosinophils Absolute 0.8(H) 0.0 - 0.4 10*3/uL 01/05/2025 7:08 PM EDT [facility] Basophils Absolute 0.0 0.0 - 0.2 10*3/uL 01/05/2025 7:08 PM EDT [facility] Differential Type AUTOMATED DIFFERENTIAL 01/05/2025 7:08 PM EDT [facility] Blood Venous blood / Unknown 01/05/2025 6:48 PM EDT 01/05/2025 6:50 PM EDT us Abdias Sanchez MD LAB BLOOD ORDERABLES Final Resu lt Performing Organization Address City/[facility]/ZIP Co de Phone Number [address] [place] [address], [place] * C-reactive protein (01/05/2025 6:48 PM EDT) C REACTIVE PROTEIN 0.6 <=0.7 mg/dL 01/05/2025 7:15 PM EDT [facility] Blood Venous blood / Unknown 01/05/2025 6:48 PM EDT 01/05/2025 6:50 PM EDT Abdias Sanchez MD LAB BLOOD ORDERABLES Final Resu lt Performing Organization Address City/[facility]/ZIP Co de Phone Number [address] [place] [address], [place] * (ABNORMAL) Comprehensive metabolic panel (01/05/2025 6:48 PM EDT) SODIUM 136 134 - 146 mmol/L 01/05/2025 7:27 PM EDT [facility] POTASSIUM 3.5 3.5 - 5.0 mmol/L 01/05/2025 7:27 PM EDT [facility] CHLORIDE 108 98 - 109 mmol/L 01/05/2025 7:27 PM EDT [facility] CARBON DIOXIDE 19(L) 22 - 32 mmol/L 01/05/2025 7:27 PM EDT [facility] ANION GAP 9 5 - 15 mmol/L 01/05/2025 7:27 PM EDT [facility] BLOOD UREA NITROGEN 18 5 - 23 mg/dL 01/05/2025 7:27 PM EDT [facility] CREATININE 0.79 0.40 - 1.00 mg/dL 01/05/2025 7:27 PM EDT [facility] Comment:METHOD TRACEABLE TO [facility] STANDARD GLUCOSE 108(H) 65 - 99 mg/dL 01/05/2025 7:27 PM EDT [facility] CALCIUM 8.8 8.5 - 10.5 mg/dL 01/05/2025 7:27 PM EDT [facility] TOTAL PROTEIN 6.5 6.0 - 8.0 g/dL 01/05/2025 7:27 PM EDT [facility] ALBUMIN 3.9 3.2 - 5.3 g/dL 01/05/2025 7:27 PM EDT [facility] ALKALINE PHOSPHATASE 58 39 - 130 U/L 01/05/2025 7:27 PM EDT [facility] AST 18 <=41 U/L 01/05/2025 7:27 PM EDT [facility] ALT 20 <=31 U/L 01/05/2025 7:27 PM EDT [facility] BILIRUBIN,TOTAL 0.6 0.3 - 1.2 mg/dL 01/05/2025 7:27 PM EDT [facility] EGFR Non-Race Dependent >90 >=60 ml/min/1.7 3sq.m 01/05/2025 7:27 PM EDT [facility] Comment: Reported eGFR is based on the CKD-EPI 2020 equation that does not use a race coefficient. Blood Venous blood / Unknown 01/05/2025 6:48 PM EDT 01/05/2025 6:50 PM EDT us Abdias Sanchez MD LAB BLOOD ORDERABLES Final Resu lt [facility] [address] [address], * Light Blue Top (01/05/2025 6:47 PM EDT) Extra Tube Auto Resulted 01/05/2025 8:02 PM EDT [facility] Blood Venous blood / Unknown 01/05/2025 6:47 PM EDT 01/05/2025 6:51 PM EDT Abdias Sanchez MD LAB BLOOD ORDERABLES Final Resu lt Performing Organization Address City/[facility]/ZIP Co de Phone Number [address] [address], [place] * D-Dimer (01/05/2025 6:47 PM EDT) D DIMER <150 1 - 255 ug/mL 01/05/2025 8:13 PM EDT [facility] Comment:Results <255 ng/mL D DU: The presensence [...] MD LAB BLOOD ORDERABLES Final Resu lt [address] [address], from Last 3 Months Insurance [address] [place] [address] ANTHEM Care Teams Knockdown Worker Relationship Specialty Start Date End Date Alberto Reid MD PCP - General Family Medicine 10/14/18
--- OUTSIDE RECORDS SUMMARY | 2025-03-26 14:16 | XMS_ITS | Encounter Summary ---
Author Organization [facility] Address [address], [address] [place] [address] Care Team Providers Care Therapy Teacher Name Role Phone Alberto Reid MD Primary Care Provider + Reason for Visit * Reason Comments Medication Refill Encounter Details Date Type Department Care Team (Late st Contact Info) Description 02/26/2019 Refill [facility] [address] [phone] Joanie Gaines MD Medication Refill Social History [...] on filedocumented in this encounter Care Teams Therapy Teacher Relationship Specialty Start Date End Date Alberto Reid MD PCP - General Family Medicine 11/09/18 documented as of this encounter
--- OUTSIDE RECORDS SUMMARY | 2025-03-26 14:16 | XMS_ITS | Encounter Summary ---
Author Organization [facility] Address [address] [place] [address] Care Team Providers Care Telephone Operator Receptionist Name Role Phone Alberto Reid MD Primary Care Provider [phone] Encounter Details Date Type Department Care Team (Late Contact Info) Description 03/14/2025 Clinisync Result Encounter [facility] External Department Unsolicited Alberto Reid MD [address] [place] [phone] Social History Tobacco Use Types Packs/Day Years [...] 05/26/2025 9:45 AM EDT [facility] [address] [place] [address] Alberto Reid MD [address] [place] [phone] documented as of this encounter Procedures Procedure Name Priority Date/Time Associated Diagnosis Comments TSH W/REFLEX T4 Routine 03/14/2025 10:17 AM EDT [facility] CMP (CMP) (FOR REMOTE [facility] USE) Routine 03/14/2025 10:17 AM EDT ALL MAGNESIUM Routine 03/14/2025 10:17 AM EDT ALL CBC WITH AUTO DIFF Routine 03/14/2025 10:17 AM EDT documented in this encounter Results * TSH W/REFLEX T4 (03/14/2025 10:17 AM EDT) TSH 1.619 0.516 - 4.130 uIU/mL TBH 03/14/2025 10:1 7 AM EDT 03/14/2025 10:23 AM EDT Narrative [facility] - 03/14/2025 11:38 AM EDT Alberto Reid MD LAB BLOOD ORDERABLES Final Resul t Performing Organization Address City/[facility] Co de Phone Number [facility] * ALL MAGNESIUM (03/14/2025 10:17 AM EDT) MAGNESIUM 2.0 1.8 - 2.4 mg/dL TBH 03/14/2025 10:1 7 AM EDT 03/14/2025 10:23 AM EDT Narrative [facility] - 03/14/2025 11:38 AM EDT Alberto Reid MD CLINISYNC Final Result Performing Organization Address [facility] Co de Phone Number [facility] * (ABNORMAL) [facility] CMP (CMP) (FOR REMOTE [facility] USE) (03/14/2025 10:17 AM EDT) SODIUM 139 136 - 145 mmol/L TBH POTASSIUM 3.7 3.5 - 5.1 mmol/L TBH CHLORIDE 107 98 - 107 mmol/L TBH CARBON DIOXIDE 21.2 21.0 - 32.0 mmol/L TBH ANION GAP 14.5 TBH GLUCOSE 107(H) 74 - 106 mg/dL TBH BLOOD UREA NITROGEN 14.0 6.4 - 19.3 mg/dL TBH CREATININE 0.88 0.55 - 1.02 mg/dL TBH TBH EGFR-AF [place]IZEN [place] >60 >=60 mL/min/1. 73m 2 TBH TBH EGFR-NON AF [place]IZEN [place] >60 >=60 mL/min/1. 73m 2 TBH BUN [...] 11:38 AM EDT us Alberto Reid MD [facility] Final [facility] * (ABNORMAL) ALL CBC WITH AUTO DIFF (03/14/2025 10:17 AM EDT) TB WBC 6.2 4.0 - 11.0 10 3/uL TBH TB RBC 4.02(L) 4.20 - 5.40 10 6/uL [...] Narrative CLINISYNC - 03/14/2025 10:50 AM EDT Alberto Reid MD [facility]EL Final Result [facility] documented in this encounter Visit Diagnoses Not on filedocumented in this encounter Care Teams Telephone Operator Receptionist Relationship Specialty Start Date End Date Alberto Reid MD [address] [place] [id number] PCP - General Family Medicine 08/25/23 documented as of this encounter
--- OUTSIDE RECORDS SUMMARY | 2025-03-26 14:33 | XMS_ITS | CCD ---
Author Organization [facility] Care Team Providers Care Medical Oncologist Name Role Phone JOANIE PAGE Referring Unavailable ALBERTO ENAMORADO Primary Care UnavailHaven Ortiz Unavailable FEI, DR ALBERTO Stroud Attending Unavailable RUTLEDGE, DR LAST Stevenson Consulting Unavailable NADERER, DR ALBERTO Stroud Admitting Unavailable NADERER, DR ALBERTO Stroud Primary Care Unavailable NADEREAdiel, DR ALBERTO Stroud Consulting Unavailable NADERER, DR ALBERTO Stroud Primary Care Unavailable NADERER, DR ALBERTO Stroud Consulting Unavailable NADERER, DR ALBERTO Stroud Attending Unavailable NADERER, DR ALBERTO Stroud Admitting Unavailable AICHHOLZ, THOMAS BULLOCK Attending Unavailable AICHHOLZ, THOMAS BULLOCK Admitting Unavailable AICHHOLZ, INTELLIGENCE SUPPORT OFFICER KOBE Consulting Unavailable NADERER, DR ALBERTO Stroud Primary Care Unavailable Iona Rosas Unavailable ABY DURBIN Referring Unavailable TIARA ESPINOZA Attending Unavailable ABY DURBIN Referring Unavailable CORIN BURROUGHS Attending Unavailable MD Alberto Enamorado Primary Care Provider [phone] CONCETTA German Attending Provider [phone] DO Lakhwinder Rodriguez Attending Provider Lakhwinder Rodriguez Attending Unavailable Lakhwinder Rodriguez Admitting Unavailable Selena German Admitting Unavailable Selena German Attending Unavailable Alberto Enamorado Primary Care Unavailable Alberto Enamorado MD Primary Care Provider [phone] Alberto Enamorado MD Unavailable VIC ANDERSEN Referring Unavailable ALBERTO ENAMORADO Primary Care Unavailable Alberto Enamorado MD Primary Care Provider ALBERTO ENAMORADO Primary Care Unavailable ARELY SHAY Attending Unavailable ALBERTO ENAMORADO Attending Unavailable ALBERTO ENAMORADO Attending Unavailable ALBERTO ENAMORADO Attending Unavailable LAKHWINDER RODRIGUEZ Attending Unavailable LAKHWINDER RODRIGUEZ Attending Unavailable ALBERTO ENAMORADO Attending Unavailable ALBERTO ENAMORADO Attending Unavailable Allergies Allergy Classification Reported Allergen(s) Allergy Type Date of Onset Reaction(s) Facility (10 sources) Amoxicillin; Translations: [AMOXICILLIN] Drug Allergy 09-08-19 12 Hives [facility] Repository (6 sources) Cephalexin Drug Allergy 10-01-19 24 [facility] (2 sources) Cephalasporins Propensity to adverse reactions hives, swelling [facility] Other (1 source) Amoxicillin Drug Allergy 07-10-[address] [facility] Repository (9 sources) Cephalosporins (Antibiotic); Translations: [CEPHALOSPORINS] Drug allergy (disorder) 11-24-19 13 Swelling [facility] Rep[facility] (20 sources) Albuterol; Translations: [ALBUTEROL] Drug Allergy 09-13-19 20 Unknown [facility] Repository (20 sources) Penicillins; Translations: [PENICILLINS] Propensity to adverse reactions to drug (disorder) 09-08-19 12 Hives, Shortness of breath, Swelling, Anaphylaxis, Rash [facility] Repository (1 source) Amoxicillin Drug Allergy 02-23-20 24 [facility] Repository (1 source) Cephalexin Drug Allergy 02-23-20 24 [facility] Rep[facility] (1 source) Cephalosporins (Antibiotic) Drug allergy (disorder) 02-23-20 24 [facility] Repository (20 sources) Cephalosporins (Antibiotic) Drug Intolerance 11-24-19 13 Hives, Shortness of breath, Swelling [facility] (1 source) Latex Propensity to adverse reactions to drug 12-05-19 25 [facility] Vancomycin; Translations: [VANCOMYCIN] Drug Allergy 01-06-20 25 Rash [facility] Repository NEGATED: Highlighted row has been ruled out! (1 source) Other Propensity to adverse reactions 09-05-19 12 [facility] Current Medications Medication Drug Class(es) Dates Sig (Normalized) Sig (Original) [id number] 200 actuat albuterol 0.09 mg/actuat metered dose inhaler (19 sources) beta2-Adrenergic Agonist Start: 04-23-2024 End: 10-07-2024 take 2 puff(s) by mouth every four hours as needed albuterol HFA 90 mcg/act inhaler Indications: Mild intermittent asthma without complication (CMS/HCC) INHALE 2 PUFFS BY MOUTH EVERY 4 HOURS NEEDED 18 g 3 04/23/2024 10/07/2024 Discontinued Start: 10-01-2023 take 2.5 mg by inhal ation every eight hours Albuterol Sulfate Active 2.5 MG INHALATION Q8H 63 7 October 01, 2023 1:00am Start: 10-01-2023 Albuterol Sulf ate Active 2 INH INHALATION Every 4 hours October 01, 2023 1:00am Start: 06-07-2019 take 2 puff(s) by in halation every six hours as needed for wheezing albuterol sulfate HFA (PROAIR HFA) 108 (90 Base) MCG/ACT inhaler Inhale 2 puffs into the lungs every 6 hours as needed for Wheezing 1 Inhaler 06/07/2019 Active ProAir HFA Activ e azithromycin 250 mg oral tablet (5 sources) Macrolide Antimicrobial Start: 10-25-2024 End: 11-27-2024 take 2 tablets by mouth once daily azithromycin (Zithromax) 250 MG tablet Indications: Acute bronchitis due to other specified organisms 2 PO once a day on day #1, then 1 PO daily on days 2-5 6 tablet 10/25/2024 11/27/2024 Discontinued Start: 05-23-2024 take 2 tablets by [facility] once daily azithromycin (Zithromax) 250 MG tablet Indications: Acute bronchitis due to other specified organisms 2 PO once a day on day #1, then 1 PO daily on days 2-5 6 tablet 05/23/2024 Active benzonatate 200 mg oral capsule (20 sources) Non-narcotic Antitussive Start: 04-05-2024 take 1 capsule by mouth three times daily as needed for cough benzonatate (Tessalon) 200 MG capsule Indications: Acute non-recurrent pansinusitis Take 1 capsule (200 mg) by mouth 3 (three) times a day as needed for cough Do not crush or chew. 20 capsule 1 04/05/2024 Active calcium chloride 0.0014 meq/ml / potassium chloride 0.004 meq/ml / sodium chloride 0.103 meq/ml / sodium lactate 0.028 meq/ml injectable solution (1 source) Start: 12-04-2024 IntraVENous, at 125 mL/hr, CONTINUOUS, Starting on Mon12/04/24 at 0945, Pre-op (day of surgery) cetirizine hydrochloride 10 mg oral tablet (3 sources) Histamine-1 Receptor Antagonist End: 12-03-2024 take 10 mg by mouth once daily cetirizine HCl (ZYRTEC CHILDRENS ALLERGY) 5 MG/5ML SYRP Take 10 mg by mouth daily 12/03/2024 Discontinued (LIST CLEANUP) cetirizine (ZYRT EC) 10 MG tablet Take 1 tablet by mouth as needed for Allergies Active Zyrtec Active Ethinyl Estradiol / Levonorgestrel (20 sources) Progestin, Estrogen, Progestin-containing Intrauterine Device Start: 03-26-2024 take 1 tablet by mouth once daily L norgest/e.estradiol-e.estrad (Simpesse) 0.15-0.03 &0.01 MG tablet tablet Indications: [...] TAB PO Daily October 01, 2023 12:00am take 1 tablet by veronica th once daily Levonorgest-Eth Estrad 91-Day (SIMPESSE) 0.15-0.03 &0.01 MG TABS Take 1 tablet by mouth daily Active 120 actuat fluticasone propionate 0.11 mg/actuat metered dose inhaler (20 sources) Corticosteroid Start: 02-29-2024 take 2 puff(s) by inhalation in the morning fluticasone (Flovent) 110 MCG/ACT inhaler Indications: Mild intermittent asthma without complication (HCC) Inhale 2 puffs in the morning and 2 puffs before bedtime. 12 g 5 02/29/2024 Active Start: 06-07-2019 fluticasone (F LONASE) 50 MCG/ACT nasal spray 1 spray by Nasal route daily 1 Bottle 5 06/07/2019 Active Start: 11-09-2018 take 2 puff(s) by in halation twice daily fluticasone (FLOVENT HFA) 220 MCG/ACT inhaler Inhale 2 puffs into the lungs 2 times daily 1 Inhaler 5 11/09/2018 Active flovent HFA Acti ve 12 hr guaiFENesin 1200 mg / pseudoephedrine hydrochloride 120 mg extended release oral tablet (20 sources) alpha-Adrenergic Agonist Start: 05-27-2024 take 120-1200 [...] Active hydrOXYzine hydrochloride 25 mg oral tablet (20 sources) Antihistamine Start: 05-15-2024 take 1 tablet [...] Every 6 hours October 01, 2023 1:00am levoFLOXacin 750 mg oral tablet (3 sources) Quinolone Antimicrobial Start: 11-21-2024 End: 11-28-2024 take 1 tablet by mouth once daily levoFLOXacin (Levaquin) 750 MG tablet Indications: Acute non-recurrent pansinusitis Take 1 tablet (750 mg) by mouth Daily for 7 days 7 tablet 11/21/2024 11/28/2024 Active loratadine 10 mg oral tablet (1 source) loratadine (CLARITIN) 10 MG tablet Take 1 tablet by mouth as needed Active Low-Ogestrel (2 sources) Low-Ogestrel Active montelukast 10 mg oral tablet (20 sources) Leukotriene Receptor Antagonist Start: 11-19-2019 take 1 tablet by mouth once daily montelukast (SINGULAIR) 10 MG tablet TAKE 1 TABLET BY MOUTH DAILY FOR ASTHMA 90 tablet 1 11/19/2019 Active Singulair Active naloxone 0.4 mg in 10 mL sodium chloride syringe (1 source) Start: 12-04-2024 IntraVENous, P RN, Opioid Reversal, Starting on Mon12/04/24 at 1245, PRN if respiratory rate is less than 6/min and patient is difficult to arouse then notify physician STAT. Mix 9 mL of sodium chloride 0.9% with 0.4 mg (1 mL) of naloxone (NARCAN) in 10 mL syringe. (Note: dilution is 0.04 mg/mL) Give 0.08 mg (2 mL of special dilution), slow IV push, repeat up to 0.4 mg (10 mL) or until patient is responsive to physical stimulation and respiratory rate is equal to or greater than 6 breaths/min. Continue to observe, if no response within 3 minutes of administration of 0.4 mg (10 mL) total, repeat dose (0.4 mg as administered previously). Concentration 0.04 mg/mL, PACU only Nasacort Allergy 24HR (1 source) Nasacort Allergy 24HR Active Nebulizers (BOB LC PLUS NEB SET PED MASK) MISC (1 source) Start: 09-13-2013 Nebulizers (PA RI LC PLUS NEB SET PED MASK) MISC 1 Device by Does not apply route 2 times daily. 1 each 0 09/13/2013 Active ondansetron 4 mg disintegrating oral tablet (20 sources) Serotonin-3 Receptor Antagonist Start: 03-19-2024 ondansetron ODT (Zofran-ODT) 4 MG disintegrating tablet Indications: Migraine without aura and without status migrainosus, not intractable DISSOLVE 1 (ONE) TABLET ON THE TONGUE EVERY 6 HOURS NEEDED 30 tablet 2 03/19/2024 Active Start: 03-22-2019 take 1 tablet by veronica th every eight hours as needed for nausea ondansetron (ZOFRAN-ODT) 4 MG disintegrating tablet Take 1 tablet by mouth every 8 hours as needed for Nausea or Vomiting 0 03/22/2019 Active pantoprazole 40 mg delayed release oral tablet (9 sources) Proton Pump Inhibitor Start: 05-27-2024 End: 07-16-2024 take 1 tablet by mouth before mealtime [...] 3 days 39 tablet 05/23/2024 07/16/2024 Discontinued Respiratory Therapy Supplies (VORTEX HOLDING CHAMBER/MASK) TRINIDAD (3 sources) Start: 09-13-2019 Respiratory Th erapy Supplies (VORTEX HOLDING CHAMBER/MASK) TRINIDAD 1 Device by Does not apply route daily 1 Device 09/13/2019 Active Start: 08-15-2016 Respiratory Th erapy Supplies (VORTEX HOLDING CHAMBER/MASK) TRINIDAD 1 Device by Does not apply route daily 1 Device 08/15/2016 Active Start: 09-08-2011 Respiratory Th erapy Supplies (VORTEX HOLDING CHAMBER/MASK) TRINIDAD by Does not apply route. 1 Device 0 09/08/2011 Active rizatriptan 10 mg disintegrating oral tablet (20 sources) Serotonin-1b and Serotonin-1d Receptor Agonist Start: 05-14-2024 rizatriptan TOLL BOOTH OPERATOR (Maxalt-TOLL BOOTH OPERATOR) 10 MG disintegrating tablet Indications: Migraine without aura and without status migrainosus, not intractable TAKE 1 TABLET BY MOUTH at the onset OF headache may repeat in 2 (TWO) HOURS once 9 tablet 3 05/14/2024 Active Start: 05-14-2024 take 1 tablet by veronica th once as needed rizatriptan (MAXALT-TOLL BOOTH OPERATOR) 10 MG disintegrating tablet Take 1 tablet by mouth once as needed 05/14/2024 Active Start: 10-01-2023 take 1 tablet by veronica th every two hours Rizatriptan (Maxalt-Stem Assembler) 10 mg tablet,disintegrating Active 0 PO .COMPLEX October 01, 2023 1:00am take 1 tab at onset of headache; if no relief may repeat 1 tab after at least 2 hrs; max = 3 tabs/24 hr PO Simpesse (1 source) Simpesse Active 5 ml sodium chloride 9 mg/ml injection (7 sources) Start: 12-04-2024 5-40 mL, Intra VENous, EVERY 12 HOURS SCHEDULED (2 times per day), First dose on Mon12/04/24 at 2100, Until Discontinued, For Line Patency: Peripheral IV = 5 mL; Midline or Central Line = 10 mL/lumen. If following IV push medication, administer flush at same rate as the IV push. Flush volume is determined by type of infusion therapy being given. For non-viscous solutions use: Peripheral IV = 5 mL Midline or Central Line = 10 mL/lumen For viscous solutions (i.e. blood components, parenteral nutrition, contrast media, or after obtaining blood sample) use: Peripheral IV = 10 mL Midline or Central Line = 20 mL/lumen, PACU only Start: 12-04-2024 IntraVENous, a t 125 mL/hr, CONTINUOUS, Starting on Mon12/04/24 at 0945, Pre-op (day of surgery) Start: 12-04-2024 take 20 mL intraveno usly every hour IntraVENous, at 5-250 mL/hr, PRN, if patient receiving piggyback infusions and maintenance fluids are not ordered OR KVO fluids to protect IV site / prevent frequent line interruptions/ long duration, Starting on Mon12/04/24 at 1245, For piggyback infusion, administer at same rate as piggyback for a total of 25 mL. Enter 25 mL into dose field and piggyback rate into rate field of order. If piggyback is infusing at a rate less than 100 mL/hr, enter 25 mL into dose field and 100 mL/hr into rate field of order. For KVO fluids, enter rate of 20 mL/hr or less into rate field of order., PACU only Start: 12-04-2024 5-40 mL, Intra VENous, EVERY 12 HOURS SCHEDULED (2 times per day), First dose on Mon12/04/24 at 0945, Until Discontinued, For Line Patency: Peripheral IV = 5 mL; Midline or Central Line = 10 mL/lumen. If following IV push medication, administer flush at same rate as the IV push. Flush volume is determined by type of infusion therapy being given. For non-viscous solutions use: Peripheral IV = 5 mL Midline or Central Line = 10 mL/lumen For viscous solutions (i.e. blood components, parenteral nutrition, contrast media, or after obtaining blood sample) use: Peripheral IV = 10 mL Midline or Central Line = 20 mL/lumen, Pre-op (day of surgery) Start: 12-04-2024 5-40 mL, Intra VENous, PRN, Starting on Mon12/04/24 at 1245, Until Discontinued, Line Care, After every IV line use, For Line Patency: Peripheral IV = 5 mL; Midline or Central Line = 10 mL/lumen. If following IV push medication, administer flush at same rate as the IV push. Flush volume is determined by type of infusion therapy being given. For non-viscous solutions use: Peripheral IV = 5 mL Midline or Central Line = 10 mL/lumen For viscous solutions (i.e. blood components, parenteral nutrition, contrast media, or after obtaining blood sample) use: Peripheral IV = 10 mL Midline or Central Line = 20 mL/lumen, PACU only SUMAtriptan (1 source) Serotonin-1b and Serotonin-1d Receptor Agonist Imitrex Active topiramate 100 mg oral tablet (20 sources) Start: take 1 tablet by mouth three times daily at bedtime topiramate (Topamax) 100 MG tablet Indications: Migraine without aura and without status migrainosus, not intractable TAKE 1 TABLET BY MOUTH THREE TIMES DAILY (IN THE MORNING, IN THE EVENING, and BEFORE bedtime) 90 tablet 3 03/06/2025 Active Start: 05-27-2024 take 1 tablet by veronica th three times daily at bedtime topiramate (Topamax) [...] before bedtime. 90 tablet 3 02/29/2024 Active take 2 tablets by mo uth three times daily topiramate (TOPAMAX) 25 MG tablet Take 2 tablets by mouth 3 times daily Active Topamax Active Completed/Discontinued Medications Medication Drug Class(es) Dates Sig (Normalized) Sig (Original) acetaminophen 500 mg oral capsule (4 sources) Start: 10-01-2023 End: 02-23-2024 take 1000 mg by mouth every six hours Acetaminophen Discontinued 1000 MG PO Every 6 hours October 01, 2023 1:00am February 23, 2024 4:21pm aprepitant 40 mg oral capsule (1 source) Substance P/Neurokinin-1 Receptor Antagonist Start: 12-04-2024 End: 12-04-2024 take 1 dose by mouth once daily 40 mg, Oral, ONCE, 1 dose, On Mon12/04/24 at 0945, Pre-op (day of surgery) budesonide 0.25 mg/ml inhalation suspension (4 sources) Corticosteroid Start: 10-01-2023 End: 02-23-2024 take 0.5 mg by inhalation once daily Budesonide (Pulmicort) 0.5 mg/2 mL suspension for nebulization Discontinued 0.5 MG INHALATION Daily 60 October 01, 2023 1:00am February 23, 2024 4:21pm 12 hr dextromethorphan hydrobromide 30 mg / guaiFENesin 600 mg extended release oral tablet (4 sources) Uncompetitive C-umlgpv-A-aspartat e Receptor Antagonist, Sigma-1 Agonist Start: 10-01-2023 End: 02-23-2024 take 1 tablet by mouth every twelve hours Dextromethorphan-G uaifenesin (Mucinex Dm) 30-600 mg tablet extended release 12 hr Discontinued 1 TAB PO Every 12 hours October 01, 2023 1:00am February 23, 2024 4:21pm dextromethorphan hydrobromide 1.5 mg/ml / pyrilamine maleate 1.5 mg/ml oral solution (4 sources) Uncompetitive F-raiimz-V-aspartat e Receptor Antagonist, Sigma-1 Agonist Start: 10-01-2023 End: 02-23-2024 take 1 mL by mouth every eight hours Pyrilamine-Dextrom ethorphan ([place] Dm) 7.5-7.5 mg/5 mL liquid Discontinued 10 ML PO Every 8 hours 150 5 October 01, 2023 1:00am February 23, 2024 4:22pm ethinyl estradiol 0.035 mg / norethindrone acetate 1 mg oral tablet (1 source) Estrogen Start: 05-30-2019 End: 12-03-2024 take 1 tablet by mouth once daily NORTREL 1/35, 28, 1-35 MG-MCG per tablet TK 1 T PO QD 0 05/30/2019 12/03/2024 Discontinued (LIST CLEANUP) 2 ml fentaNYL 0.05 mg/ml injection (1 source) Opioid Agonist Start: 12-04-2024 25 mcg, IntraVENous, EVERY 5 MIN PRN, 4 doses, Starting on Mon12/04/24 at 1245, Until Discontinued, Pain Moderate (4-6), allowed for higher pain score per patient request, Phase I - Initial therapy for moderate pain., PACU only 1 ml haloperidol 5 mg/ml prefilled syringe (1 source) Typical Antipsychotic Start: 12-04-2024 1 mg, IntraVENous, ONCE PRN, 1 dose, Starting on Mon12/04/24 at 1245, Until Discontinued, Agitation, nausea, Secondary antiemetic therapy., PACU only 0.5 ml HYDROmorphone hydrochloride 1 mg/ml prefilled syringe (1 source) Opioid Agonist Start: 12-04-2024 0.5 mg, IntraVENous, EVERY 5 MIN PRN, 4 doses, Starting on Mon12/04/24 at 1245, Until Discontinued, Pain Severe (7-10), Phase I - Initial therapy for severe pain., PACU only ibuprofen 200 mg oral capsule (4 sources) Nonsteroidal Anti-inflammatory Drug Start: 10-01-2023 End: 02-23-2024 take 400 mg by mouth every six hours Ibuprofen Discontinued 400 MG PO Every 6 hours October 01, 2023 1:00am February 23, 2024 4:22pm 10 ml lidocaine hydrochloride 10 mg/ml injection (1 source) Antiarrhythmic, Amide Local Anesthetic Start: 12-04-2024 take 1 dose intravenously once daily 1 mL, IntraDERmal, ONCE PRN, 1 dose, Starting on Mon12/04/24 at 0921, Until Discontinued, IV start, Pre-op (day of surgery) 2 ml metoclopramide 5 mg/ml prefilled syringe (1 source) Dopamine-2 Receptor Antagonist Start: 12-04-2024 10 mg, IntraVENous, ONCE PRN, 1 dose, Starting on Mon12/04/24 at 1245, Until Discontinued, Nausea, Initial antiemetic therapy. Do not give if hx parkinsons disorder or extrapyramidal symptoms, PACU only 2 ml midazolam 1 mg/ml injection (1 source) Benzodiazepine Start: 12-04-2024 End: 12-04-2024 4 mg, IntraVENous, ONCE, 1 dose, On Mon12/04/24 at 0945, STAT, Pre-op (day of surgery) omeprazole 40 mg delayed release oral capsule (1 source) Proton Pump Inhibitor Start: 03-22-2019 End: 12-03-2024 omeprazole (PRILOSEC) 40 MG delayed release capsule 1 capsule as needed 5 03/22/2019 12/03/2024 Discontinued (LIST CLEANUP) oxyCODONE hydrochloride 5 mg oral tablet (1 source) Opioid Agonist Start: 12-04-2024 End: 12-04-2024 take 1 dose by mouth once for pain 5 mg, Oral, ONCE PRN, 1 dose, Starting on Mon12/04/24 at 1245, Until Mon12/04/24 at 1409, Pain Moderate (4-6), allowed for higher pain score per patient request, Pain Severe (7-10), PHASE II, PACU only promethazine hydrochloride 12.5 mg oral tablet (1 source) Phenothiazine Start: 12-04-2024 End: 12-04-2024 take 1 dose by mouth once daily 12.5 mg, Oral, ONCE, 1 dose, On Mon12/04/24 at 0945, Pre-op (day of surgery) Triamcinolone (1 source) Corticosteroid Start: 03-30-2018 KENALOG - 10 mg Mar, 40 mg Problems Active Problems Problem Classification Problem Date Documented Date Episodic/Chronic Anxiety disorders (20 sources) Generalized anxiety disorder; Translations: [Generalized anxiety disorder] Onset: 07-16-2024 07-16-2024 Chronic Asthma (20 sources) Exacerbation of moderate persistent asthma; Translations: [Moderate persistent asthma with (acute) exacerbation] Onset: 06-24-2013 10-01-2023 Chronic Cardiac dysrhythmias (6 sources) Tachycardia; Translations: [Tachycardia, unspecified] Onset: 02-06-2025 02-06-2025 Episodic E Codes: Natural/environment (4 sources) Insect bite - wound; Translations: [Bitten or stung by nonvenomous insect and other nonvenomous arthropods, initial encounter] 02-23-2024 Episodic Endometriosis (18 sources) Endometriosis (clinical); Translations: [Endometriosis, unspecified] Onset: 10-07-2024 10-07-2024 Chronic Esophageal disorders (20 sources) Gastroesophageal reflux disease without esophagitis; Translations: [Gastro-esophageal reflux disease without esophagitis] Onset: 01-25-2024 01-25-2024 Chronic Headache; including migraine (20 sources) Migraine without aura, not refractory ; Translations: [Migraine without aura, not intractable, without status migrainosus] Onset: 01-17-2023 Resolved: 09-05-2023 09-05-2023 Chronic Lymphadenitis (4 sources) Localized enlarged lymph nodes; Translations: [LOCALIZED ENLARGED LYMPH NODES] Onset: 09-17-2022 Episodic Other connective tissue disease (1 source) Posterior tibial tendinitis, right leg; Translations: [Posterior tibial tendinitis, right leg] Onset: 11-11-2024 Episodic Other connective tissue disease (1 source) Leg swelling symptom Onset: 01-05-2025 Episodic Other nervous system disorders (1 source) [...] rhinitis, unspecified Chronic Other upper respiratory disease (20 sources) Allergic rhinitis due to pollen; Translations: [Allergic rhinitis due to pollen] Onset: 09-05-2023 09-05-2023 Chronic Other upper respiratory disease (1 source) Dysphonia; Translations: [Hoarse voice quality] Onset: 01-17-2023 Episodic Residual codes; unclassified (1 source) Acquired absence of other organs; Translations: [Other postprocedural status] 10-01-2023 Episodic Skin and subcutaneous tissue infections (1 source) Cellulitis, unspecified; Translations: [Cellulitis, unspecified] Onset: 01-05-2025 Episodic Sprains and strains (6 sources) Sprain of right wrist; Translations: [Unspecified sprain of right wrist, initial encounter] Onset: 11-11-2024 02-23-2024 Episodic Unclassified (3 sources) CONTACT W/AND (SUSP) EXPOS COVID-19; Translations: [CONTACT W/AND (SUSP) EXPOS COVID-19] Onset: 03-24-2022 Unclassified (1 source) Post-op Problem Onset: 01-05-2025 Viral infection (1 source) COVID-19; Translations: [COVID-19] Onset: 03-28-2022 Past or Other Problems Problem Classification Problem Date Documented Date Episodic/Chronic Abdominal pain (20 sources) Right upper quadrant pain; Translations: [Right upper quadrant pain] Onset: 01-25-2024 01-25-2024 Episodic Acute bronchitis (20 sources) Acute infective bronchitis; Translations: [Acute bronchitis due to other specified organisms] Onset: 05-23-2024 Resolved: 07-16-2024 05-23-2024 Episodic Adjustment disorders (20 sources) Adjustment disorder with anxious mood; Translations: [Adjustment disorder with anxiety] Onset: 01-17-2023 Resolved: 09-05-2023 09-05-2023 Chronic Biliary tract disease (20 sources) Biliary dyskinesia; Translations: [Other specified diseases of gallbladder] Onset: 02-29-2024 02-29-2024 Episodic Immunizations and screening for infectious disease (1 source) Contact with and (suspected) exposure to other viral communicable diseases Onset: 07-22-2021 Resolved: 07-22-2021 Episodic Other non-traumatic joint disorders (20 sources) Multiple joint pain; Translations: [Pain in unspecified joint] Onset: 11-30-2023 11-30-2023 Episodic Other non-traumatic joint disorders (20 sources) Acute ankle pain; Translations: [Pain in right ankle and joints of right foot] Onset: 11-30-2023 Resolved: 02-29-2024 02-29-2024 Episodic Other upper respiratory infections (20 sources) Acute pharyngitis, unspecified; Translations: [Acute pansinusitis] Onset: 07-22-2021 Resolved: 01-25-2024 Episodic Otitis media and related conditions (20 sources) Acute non-suppurative otitis media of left ear; Translations: [Other acute nonsuppurative otitis media, left ear] Onset: 01-10-2024 Resolved: 01-25-2024 01-25-2024 Episodic Residual codes; unclassified (20 sources) Disturbance in sleep behavior; Translations: [Sleep disorder, unspecified] Onset: 01-17-2023 Resolved: 09-05-2023 09-05-2023 Episodic Unclassified (1 source) CONTACT W/AND (SUSP) EXPOS COVID-19; Translations: [CONTACT W/AND (SUSP) EXPOS COVID-19] Onset: 03-24-2022 Results Test Name Value Interpretation Reference Range Facility ALL CBC WITH AUTO DIFFon BASOPHILS ABSOLUTE AUTO 0 [facility] Basophils/100 WBC (Bld) 0.6 % 0.2 - 2.0 % [facility] Eosinophils/100 WBC (Bld) 7.7 % High 0.9 - 7.0 % [facility] Erythrocyte distribution width (RBC) [Ratio] 11.2 % 11.0 - 15.0 % [facility] Hematocrit (Bld) [Volume fraction] 39.3 % 36.0 - 48.0 % [facility] Hemoglobin (Bld) [Mass/Vol] 13.9 g/dL 12.0 - 16.0 g/dL [facility] IMMATURE GRANULOCYTES ABS AUTO 0.01 [facility] Immature granulocytes/100 WBC (Bld) 0.2 % 0.0 - 0.5 % [facility] Interpretation and review of laboratory results Abnormal [facility] LYMPHOCYTES ABSOLUTE AUTO 2.2 [facility] Lymphocytes/100 WBC (Bld) 36 % 20.5 - 60.0 % [facility] MCH (RBC) [Entitic mass] 34.6 pg High 26.7 - 34.0 pg [facility] MCHC (RBC) [Mass/Vol] 35.4 g/dL High 29.9 - 35.2 g/dL [facility] MCV (RBC) [Entitic vol] 97.8 fL 81.0 - 99.0 fL [facility] MONOCYTES ABSOLUTE AUTO 0.6 [facility] Monocytes/100 WBC (Bld) 8.8 % 1.7 - 12.0 % [facility] NEUTROPHILS ABSOLUTE AUTO 2.9 [facility] Neutrophils/100 WBC (Bld) 46.7 % 43.0 - 75.0 % [facility] Platelet mean volume (Bld) [Entitic vol] 10.1 fL 9.5 - 13.5 fL [facility] TBH EO # 0.5 [facility] PLT 273 [facility] RBC 4.02 Low [facility] WBC 6.2 [facility] ALL MAGNESIUMon 03-14-2025 Magnesium [Mass/Vol] 2 mg/dL 1.8 - 2 .4 mg/dL [facility] CMP (CMP) (FOR REMOTE FH C USE)on 03-14-2025 Albumin [Mass/Vol] 3.9 g/dL 3.4 - 5.0 g/dL [facility] ALBUMIN GLOBULIN RATIO 1.4 [facility] ALP [Catalytic activity/Vol] 56 U/L 46 - 116 U/L [facility] ALT [Catalytic activity/Vol] 19 U/L 14 - 59 U/L [facility] Anion gap [Moles/Vol] 14.5 mmol/L [facility] AST [Catalytic activity/Vol] 14 U/L Low 15 - 37 U/L [facility] Bilirubin [Mass/Vol] 0.3 mg/dL 0.2 - 1 .0 mg/dL [facility] Calcium [Mass/Vol] 8.8 mg/dL 8.5 - 10. 1 mg/dL [facility] Chloride [Moles/Vol] 107 mmol/L 98 - 10 7 mmol/L [facility] CO2 [Moles/Vol] 21.2 mmol/L 21.0 - 32.0 mmol/L [facility] Creatinine [Mass/Vol] 0.88 mg/dL 0.55 - 1.02 mg/dL [facility] GFR/1.73 sq M.predicted CKD-EPI (S/P/Bld) [Vol rate/Area] >60 >=60 mL/min/1.73m 2 [facility] Globulin (S) [Mass/Vol] 2.8 g/dL [facility] Glucose [Mass/Vol] 107 mg/dL High 74 - 106 mg/dL [facility] Interpretation and review of laboratory results Abnormal [facility] Potassium [Moles/Vol] 3.7 mmol/L 3.5 - 5.1 mmol/L [facility] Protein [Mass/Vol] 6.7 g/dL 6.4 - 8.2 g/dL [facility] Sodium [Moles/Vol] 139 mmol/L 136 - 145 mmol/L [facility] TBH EGFR-NON AF [place] >60 >=60 mL/min/1.73m 2 [facility] Urea nitrogen [Mass/Vol] 14 mg/dL 6.4 - 19.3 mg/dL [facility] Urea nitrogen/Creatinine [Mass ratio] 15.9 mg/mg [facility] No Panel [facility] 03[facility]LEX T4on 03-14-2025 TSH Qn 1.619 m[IU]/L [facility] C-REACTIVE PROTEINon 025 C REACTIVE PROTEIN 0.6 mg/dL Normal <=0.7 [facility] Comment on above: Performed By: #### C RP #### [facility] ([address] [address] VIR CBC WITH AUTO DIFFERENTIALon 01-05-2025 BASOPHILS ABSOLUTE COUNT (10*3/UL) BY AUTOMATED COUNT 0.0 10*3/uL Normal 0.0-0.2 [facility] Comment on above: Performed By: #### C BCA #### [facility] ([address] [address] VIR BASOPHILS RELATIVE PERCENT BY AUTOMATED COUNT 0.3 % Normal [facility] Comment on above: Performed By: #### C BCA #### [address] [address] VIR CELLAVISION DIFFERENTIAL TYPE AUTOMATED DIFFERENTIAL Normal [facility] Comment on above: Performed By: #### C BCA #### [address] [address] VIR Eosinophils (Bld) [#/Vol] 0.8 10*3/uL High 0.0-0.4 [facility] Comment on above: Performed By: #### C BCA #### [address] [address] VIR EOSINOPHILS RELATIVE PERCENT BY AUTOMATED COUNT 9.8 % Normal [facility] Comment on above: Performed By: #### C BCA #### [address] [address] VIR Erythrocyte distribution width (RBC) [Ratio] 13.1 % Normal 11.5-15 [facility] Comment on above: Performed By: #### C BCA #### [address] [address] VIR Hematocrit (Bld) [Volume fraction] 39.9 % Normal 35-47 [facility] Comment on above: Performed By: #### C BCA #### [facility] ([address] [address] VIR Hemoglobin (Bld) [Mass/Vol] 13.8 g/dL Normal 11.7-15.5 [facility] Comment on above: Performed By: #### C BCA #### [facility] ([address] [address] VIR LYMPHOCYTES ABSOLUTE COUNT (10*3/UL) BY AUTOMATED COUNT 2.7 10*3/uL Normal 1.0-3.5 [facility] Comment on above: Performed By: #### C BCA #### [facility] ([address] [address] VIR LYMPHOCYTES RELATIVE PERCENT BY AUTOMATED COUNT 33.2 % Normal [facility] Comment on above: Performed By: #### C BCA #### [address] [address] VIR MCH (RBC) [Entitic mass] 33.4 pg Normal 27-34 [facility] Comment on above: Performed By: #### C BCA #### [address] [address] VIR MCHC (RBC) [Mass/Vol] 34.6 g/dL Normal 32-36 [facility] Comment on above: Performed By: #### C BCA #### [address] [address] VIR MCV (RBC) [Entitic vol] 97 fL Normal 80-100 [facility] Comment on above: Performed By: #### C BCA #### [facility] ([address] [address] VIR MONOCYTES ABSOLUTE COUNT (10*3/UL) BY AUTOMATED COUNT 0.6 10*3/uL Normal 0.0-0.9 [facility] Comment on above: Performed By: #### C BCA #### [facility] ([address] [place] [address] VIR MONOCYTES RELATIVE PERCENT BY AUTOMATED COUNT 7.9 % Normal [facility] Comment on above: Performed By: #### C BCA #### [facility] ([facility]) [address] [place], [place] [address]. [place] [address] VIR NEUTROPHILS ABSOLUTE COUNT BY AUTOMATED COUNT 4.0 10*3/uL Normal 1.5-6.6 [facility] Comment on above: Performed By: #### C BCA #### [facility] ([address] [place] [address] VIR NEUTROPHILS RELATIVE PERCENT BY AUTOMATED COUNT 48.8 % Normal [facility] Comment on above: Performed By: #### C BCA #### [facility] ([address] [place] [address] VIR Platelet mean volume (Bld) [Entitic vol] 7.7 fL Normal 7-12 [facility] Comment on above: Performed By: #### C BCA #### [facility] ([address] [place] [address] VIR Platelets (Bld) [#/Vol] 346 10*3/uL Normal 150-450 [facility] Comment on above: Performed By: #### C BCA #### [facility] ([address] [place] [address] VIR RBC COUNT 4.14 X10E12/L Normal 3.8-5.2 [facility] Comment on above: Performed By: #### C BCA #### [facility] ([address] [place] [address] VIR WBC (Bld) [#/Vol] 8.2 10*3/uL Normal 4-11 [facility] Comment on above: Performed By: #### C BCA #### [facility] ([address] [place] [address] VIR COMPREHENSIVE METABOLIC PANE Ramirez 01-05-2025 Albumin [Mass/Vol] 3.9 g/dL Normal 3.2-5.3 [facility] Comment on above: Performed By: #### C MP #### [facility] ([place] [address] [place] [address] VIR ALP [Catalytic activity/Vol] 58 U/L Normal 39-130 [facility] Comment on above: Performed By: #### C MP #### [facility] ([place] [address] [place] [address] VIR ALT [Catalytic activity/Vol] 20 U/L Normal <=31 [facility] Comment on above: Performed By: #### C MP #### [facility] ([place] [address] [place] [address] VIR Anion gap [Moles/Vol] 9 mmol/L Normal 5-15 [facility] Comment on above: Performed By: #### C MP #### [facility] ([place] [address] [place] [address] VIR AST [Catalytic activity/Vol] 18 U/L Normal <=41 [facility] Comment on above: Performed By: #### C MP #### [facility] ([place] [address] [place] [address] VIR Bilirubin [Mass/Vol] 0.6 mg/dL Normal 0.3-1.2 [facility] Comment on above: Performed By: #### C MP #### [facility] ([place] [address] [place] [address] VIR Calcium [Mass/Vol] 8.8 mg/dL Normal 8.5-10.5 [facility] Comment on above: Performed By: #### C MP #### [facility] ([place] [address] [place] [address] VIR Chloride [Moles/Vol] 108 mmol/L Normal 98-109 [facility] Comment on above: Performed By: #### C MP #### [facility] ([address] [place] [address] VIR CO2 [Moles/Vol] 19 mmol/L Low 22-32 [facility] Comment on above: Performed By: #### C MP #### [facility] ([address] [place] [address] VIR Creatinine [Mass/Vol] 0.79 mg/dL Normal 0.40-1.00 [facility] Comment on above: Result Comment: METH OD TRACEABLE TO IDMS STANDARD Performed By: #### C MP #### [facility] ([address] [place] [address] VIR EGFR (CKD-EPI) NON-RACE DEPENDENT >^90 Normal >=60 [facility] Comment on above: Result Comment: Repo rted eGFR is based on the CKD-EPI 1 equation that does not use a race coefficient. Performed By: #### C MP #### [facility] ([address] [place] [address] VIR Glucose [Mass/Vol] 108 mg/dL High 65-99 [facility] Comment on above: Performed By: #### C MP #### [facility] ([address] [place] [address] VIR Potassium [Moles/Vol] 3.5 mmol/L Normal 3.5-5.0 [facility] Comment on above: Performed By: #### C MP #### [facility] ([address] [place] [address] VIR Protein [Mass/Vol] 6.5 g/dL Normal 6.0-8.0 [facility] Comment on above: Performed By: #### C MP #### [facility] ([address] [place] [address] VIR Sodium [Moles/Vol] 136 mmol/L Normal 134-146 [facility] Comment on above: Performed By: #### C MP #### [facility] ([address] [place] [address] VIR Urea nitrogen [Mass/Vol] 18 mg/dL Normal 5-23 [facility] Comment on above: Performed By: #### C MP #### [facility] ([address] [place] [address] VIR D-DIMERon 01-05-2025 D DIMER <^150 Normal 1-255 [facility] Comment on above: Result Comment: Resu lts <255 ng/mL DDU: The presensence of a VTE can safely be excluded with a negative D-Dimer result and Wells score. A negative result doesn't exclude the possibility of DIC. The test should be repeated along with other diagnostic tests if the patient's symptoms persist or worsen. Performed By: #### D DMR #### [facility] ([address] [place] [address] VIR ERYTHROCYTE SEDIMENTATION RA TE (ESR)on 01-05-2025 ESR, ERYTHROCYTE SEDIMENTATION RATE <^1 Normal 0-20 [facility] Comment on above: Performed By: #### E SR #### [facility] ([facility]) [address] [place] [address] VIR LACTATE W/ REFLEXon 01-06-20 25 LACTATE W/REFLEX 1.0 mmol/L Normal 0.4-2.0 [facility] Comment on above: Order Comment: Resul t did not trigger repeat Lactate, re-order if needed. Performed By: #### L ACTS #### [facility] ([address] [place] [address] VIR XR FOOT RT MIN 3 VWSon 01-05 XR FOOT RT MIN 3 VWS XR FOOT RT MIN 3 VWS 3 views of the right foot dated [...] Osteomyelitis can be occult on plain films. 0 Finalized by Nasrin Johnston MD on 01/05/2025 7:39 PM Normal [facility] ALL HCG SERUM,QUALITATIVEon 12-04-2024 PT HCG SCREEN, BLOOD Negative NEG NO [employer] [facility] Comment on above: Specimens with hCG l evels near the threshold of the test (25 mIU/mL) may give a negative or indeterminate result. In such cases, another test should be performed with a new specimen in 48-72 hours. If early is suspected clinically in this setting, correlation with quantitative serum b-hCG level is suggested. Original Ordering Provider: SRIKANTH MATAMOROS [facility] [employer]O FOR SURGICAL PROCEDUR ESon 12-04-2024 Radiology exam is complete. No Radiologist dictation. Please follow up with ordering provider. Final result [facility] Radiology, Radiologist, - 12/04/2024 Radiology exam is complete. No Radiologist dictation. Please follow up with ordering provider. Final result [employer] Radiology Study observation (narrative) [employer] FOR SURGICAL PROCEDUR ESOrdered By: Radiologist Radiology on 12-04-2024 [employer] Work Phone: Guidance-- during surgeryon 12-04-2024 Radiology exam is complete. No Radiologist dictation. Please follow up with ordering provider. [facility] RIS CONSOLIDATED HCG, SERUM, QUALITATIVEon HCG ( test) Ql Negative NEGATIVE [employer] Comment on above: Specimens with hCG l evels near the threshold of the test (25 mIU/mL) may give a negative or indeterminate result. In such cases, another test should be performed with a new specimen in 48-72 hours. If early is suspected clinically in this setting, correlation with quantitative serum b-hCG level is suggested. [facility] [employer] No Panel Informationon 12-04 Radiology Study observation (narrative) [facility] [employer] XR CALCANEUS RIGHT (MIN 2 EWS)on 12-04-2024 EXAMINATION: THREE XRAY VIEWS OF THE RIGHT FOOT; XRAY VIEWS OF THE RIGHT CALCANEUS 12/04/2024 1:38 pm; 12/04/2024 1:39 pm COMPARISON: None. HISTORY: ORDERING SYSTEM PROVIDED HISTORY: post op TECHNOLOGIST PROVIDED HISTORY: post op Reason for Exam: post op FINDINGS: Postoperative changes of calcaneal osteotomy with [address] The remainder of the foot is intact without acute fracture. Normal joint spaces. Postoperative soft tissue gas along the posterior ankle. IMPRESSION: Postoperative changes of calcaneal osteotomy without evidence of immediate complication. Interpreted by: Chelly Tomlin MD Signed by: Chelly Tomlin MD 12/04/24 Final result [facility] Radiology, Radiologist, MD - 12/04/2024 EXAMINATION: THREE XRAY VIEWS OF THE RIGHT FOOT; XRAY VIEWS OF THE RIGHT CALCANEUS 12/04/2024 1:38 pm; 12/04/2024 1:39 pm COMPARISON: None. HISTORY: ORDERING SYSTEM PROVIDED HISTORY: post op TECHNOLOGIST PROVIDED HISTORY: post op Reason for Exam: post op FINDINGS: Postoperative changes of calcaneal osteotomy with [address] The remainder of the foot is intact without acute fracture. Normal joint spaces. Postoperative soft tissue gas along the posterior ankle. IMPRESSION: Postoperative changes of calcaneal osteotomy without evidence of immediate complication. Interpreted by: Chelly Tomlin MD Signed by: Chelly Tomlin MD 12/04/24 Final result [facility] [employer] XR CALCANEUS RIGHT (MIN 2 EWS)Ordered By: Radiologist Radiology on 12-04-2024 [facility] [employer] Work Phone: XR FOOT RIGHT (MIN 3 VIEWS)o n 12-04-2024 EXAMINATION: THREE XRAY VIEWS OF THE RIGHT FOOT; XRAY VIEWS OF THE RIGHT CALCANEUS 12/04/2024 1:38 pm; 12/04/2024 1:39 pm COMPARISON: None. HISTORY: ORDERING SYSTEM PROVIDED HISTORY: post op TECHNOLOGIST PROVIDED HISTORY: post op Reason for Exam: post op FINDINGS: Postoperative changes of calcaneal osteotomy with [address] The remainder of the foot is intact without acute fracture. Normal joint spaces. Postoperative soft tissue gas along the posterior ankle. IMPRESSION: Postoperative changes of calcaneal osteotomy without evidence of immediate complication. Interpreted by: Chelly Tomlin MD Signed by: Chelly Tomlin MD 12/04/24 Final result [facility] Radiology, [place], MD - 12/04/2024 EXAMINATION: THREE XRAY VIEWS OF THE RIGHT FOOT; XRAY VIEWS OF THE RIGHT CALCANEUS 12/04/2024 1:38 pm; 12/04/2024 1:39 pm COMPARISON: None. HISTORY: ORDERING SYSTEM PROVIDED HISTORY: post op TECHNOLOGIST PROVIDED HISTORY: post op Reason for Exam: post op FINDINGS: Postoperative changes of calcaneal osteotomy with [address] The remainder of the foot is intact without acute fracture. Normal joint spaces. Postoperative soft tissue gas along the posterior ankle. IMPRESSION: Postoperative changes of calcaneal osteotomy without evidence of immediate complication. Interpreted by: Chelly Tomlin MD Signed by: Chelly Tomlin MD 12/04/24 Final result [facility] [employer] XR FOOT RIGHT (MIN 3 VIEWS)O rdered By: Radiologist Radiology on 12-04-2024 [facility] Work Phone: MR ANKLE RT WO CONTon 2024 MR ANKLE RT WO CONT MR ANKLE RT WO CONT MR ANKLE RT WO CONT CLINICAL INFORMATION: 19 years old Female with lateral and posterior right ankle pain x1 month. Complaining of ankle rolling inward while walking. COMPARISON: None. PROCEDURE: Routine MRI of the ankle performed. Multisequence, multiplanar imaging was obtained. No intravenous contrast. FINDINGS: OSSEOUS STRUCTURES AND JOINTS Bones: No fracture or osteochondral abnormality. Tibiotalar joint: Trace tibiotalar effusion. Subtalar joint: Unremarkable. Trace fluid in the subtalar joint. Tarsal joints: Unremarkable. SOFT TISSUES Muscles: Unremarkable. Tarsal tunnel: Unremarkable. Sinus tarsi: Unremarkable. Plantar fascia: Unremarkable. Kager's fat pad: Unremarkable. TENDONS Achilles tendon: Unremarkable. Posterior tibial tendon: Unremarkable. Small amount of fluid in the tendon sheath. Flexor digitorum longus tendon: Unremarkable. Flexor hallucis longus tendon: Unremarkable. Peroneus longus tendon: Unremarkable. Peroneus brevis tendon: Unremarkable. Peroneal retinaculum: Intact. Anterior tibial tendon: Unremarkable. Extensor hallucis longus: Unremarkable. Extensor digitorum longus: Unremarkable. LIGAMENTS Anterior inferior tibiofibular (syndesmotic) ligament: Unremarkable. Posterior inferior tibiofibular (syndesmotic) ligament: Unremarkable. Heterogeneous increased signal and diminutive appearance of the anterior talofibular ligament. Edema within the posterior talofibular ligament with a large surrounding reactive effusion consistent with mild tendinopathy. There is a grade 1 injuries without a high-grade tear. Calcaneofibular ligament: Unremarkable. Deltoid ligament complex: Unremarkable. Spring ligament complex: Unremarkable. Other: No ganglion. IMPRESSION: * Heterogeneous increased signal and diminutive appearance of the anterior talofibular ligament. Edema within the posterior talofibular ligament with a large surrounding reactive effusion consistent with mild tendinopathy. There is a grade 1 injuries without a high-grade tear. * Small amount of fluid in the posterior tibial tendon sheath which may represent synovitis. * Trace tibiotalar fusion. Approved by Resident Jason Díaz DO on 11/13/2024 9:17 AM IYrn MD have personally reviewed the image(s) and agree with and/or edited the report 8 Finalized by Yrn Hurtado MD on 11/13/2024 10:26 AM Normal [facility] ALL CBC WITH AUTO DIFFon BASOPHILS ABSOLUTE AUTO 0 [facility] Basophils/100 WBC (Bld) 0.3 % 0.2 - 2.0 % [facility] Eosinophils/100 WBC (Bld) 2.3 % 0.9 - 7.0 % [facility] Erythrocyte distribution width (RBC) [Ratio] 11.3 % 11.0 - 15.0 % [facility] Hematocrit (Bld) [Volume fraction] 43.7 % 36.0 - 48.0 % [facility] Hemoglobin (Bld) [Mass/Vol] 15.4 g/dL 12.0 - 16.0 g/dL [facility] IMMATURE GRANULOCYTES ABS AUTO 0.01 [facility] Immature granulocytes/100 WBC (Bld) 0.2 % 0.0 - 0.5 % [facility] LYMPHOC[facility]TES ABSOLUTE AUTO 1.9 [facility] Lymphocytes/100 WBC (Bld) 31.6 % 20.5 - 60.0 % [facility] MCH (RBC) [Entitic mass] 32.7 pg 26.7 - 34.0 pg [facility] MCHC (RBC) [Mass/Vol] 35.2 g/dL 29.9 - 35.2 g/dL [facility] MCV (RBC) [Entitic vol] 92.8 fL 81.0 - 99.0 fL [facility] MONOCYTES ABSOLUTE AUTO 0.5 [facility] Monocytes/100 WBC (Bld) 8.8 % 1.7 - 12.0 % [facility] NEUTROPHILS ABSOLUTE AUTO 3.4 [facility] Neutrophils/100 WBC (Bld) 56.8 % 43.0 - 75.0 % [facility] Platelet mean volume (Bld) [Entitic vol] 10 fL 9.5 - 13.5 fL [facility]T [facility] RBC 4.71 [facility] WBC 6 [facility] 03-13-2024 L Specimen: [id number] Received: 03/13/24 Status: MELONIE Hoffman Num: [id number] Spec Type: Surgical Subm Dr: Lakhwinder Rodriguez DO Tissues: A Gallbladder (GALLBLADDER) Procedures: HE, Gross/Micro L3 Age/ Patient Sex Location Account Attending Physician Urszula Trotter L 18/F [place] [id number] Lakhwinder Rodriguez DO SPEC NUM: [id number] RECD: 03/13/24 STATUS: MELONIE HOFFMAN NUM: [id number] MADIHA: 03/13/24- SUBM DR: Lakhwinder Rodriguez DO ENTERED: 03/13/[address] [facility] [address]: SPEC TYPE: Surgical DEPT: [facility] ENTERED BY: [id number] RECV BY: [id number] ORDERED: HE, Gross/Micro L3 ORDERED: HE, Gross/Micro [...] gallbladder wall measures 0.1 cm in thickness. Medical Director Occupational Health sections are submitted in A1. CPT Codes 94329 Specimen: [id number] Received: 03/13/24 Status: MELONIE Hoffman Num: [id number] Spec Type: Surgical Subm Dr: Lakhwinder Rodriguez DO Tissues: A Gallbladder (GALLBLADDER) Procedures: Pedro Pablo REBOLLAR/Jeferson L3 Patient: Urszula Trotter [id number] (Continued) Signed (signatur e on file) Ruby Conley MD 03/18/24 1350 Normal [facility] [facility] XR wrist RT min 3V*on 2023 XR wrist RT min 3V* [facility] [address] XRay Report Signed Patient: Urszula Trotter MR#: [id number] : 2005 Acct:[id number] Age/Sex: 18 / F ADM Date: 02/23/24 Loc: [facility] Room: Type: [facility] Attending Dr: Selena German APRN Copies to: [...] Mikey Gibson M.D.02/23/2024 5:10 PM Dictation Location: [place] [address] Transcribed By: [facility] 02/23/24 171 Dictated By: Mikey Gibson II, MD 02/23/24 170 Signed By: 02/23/24 171 Normal [facility] No Panel InformationOrdered By: Iona Rosas on 10-01-2023 COVID/Influenza Antigen (POC) [facility] CNOVon 01-17-2023 CNOV Office Visit (OTPDMN) ---- URSZULA TROTTER ([id number]) 5 F Date Time Provider Department 01/17/23 [...] over after being seen by an outside [employer] with concerns for vocal cord movement issues. [...] (more content not included)... Normal [facility] CNOV Office Visit (MICHELLE) ---- URSZULA TROTTER ([id number]) 5 F Date Time Provider Department 01/17/23 11:00 AM CORIN BURROUGHS During your visit today, we recorded the following information about you: Temperature Pulse Blood pressure Weight 97.3 degrees 85/minute 113/66 58.4 kg Height 1.68 m Corin Burroughs MD 01/17/2023 12:[address] Durbin: We had the pleasure of seeing your patient Urszula Trotter in Pediatric Neurology at [facility] on January 17, 2023. As you know she is a 17 year old ambi-handed White female sent for consultation by Dr. Durbin regarding chronic headaches, also outside ENT raised issue of myasthenia. She was [place] [facility] History was also obtained from outside medical [...] concussion opened a door into her head, [facility] Spring 2022: scoped MEDICATIONS Singulair [...] swelling SOCIAL HISTORY Home: lives with ROBERTO, MGF, brother 2007; MUncrenae moving out later this [...] of develo (more content not included)... Normal [facility] ST HEAD_NECKon 09-18-[address] [...] likely representing lymph nodes Electronically authenticated by: LSAT POND Date: 2022-09-18 12:00 Normal [facility] CBC AUTO DIFFon 09-17-2022 BASO # 0.0 103/ul Normal 0.0-0.1 [facility] Comment on above: Performed By: #### C BC #### [facility] [address] [place] [address] Dr. Dereje Glasgow Basophils/100 WBC (Bld) 0.4 % Normal 0.2-2.0 [facility] Comment on above: Performed By: #### C BC #### [facility] [address] [place] [address] Dr. Dereje Glasgow EO # 0.1 103/ul Normal 0.0-0.7 [facility] Comment on above: Performed By: #### C BC #### [facility] [address] [place] [address] Dr. Dereje Glasgow Eosinophils/100 WBC (Bld) 1.7 % Normal 0.9-7.0 [facility] Comment on above: Performed By: #### C BC #### [facility] [address] [place] [address] Dr. Dereje Glasgow Erythrocyte distribution width (RBC) [Ratio] 11.9 % Normal 11.0-15.0 [facility] Comment on above: Performed By: #### C BC #### [facility] [address] [place] [address] Dr. Dereje Glasgow Hematocrit (Bld) [Volume fraction] 43.1 % Normal 36.0-48.0 [facility] Comment on above: Performed By: #### C BC #### [facility] [address] [place] [address] Dr. Dereje Glasgow Hemoglobin (Bld) [Mass/Vol] 15.0 g/dL Normal 12.0-16.0 [facility] Comment on above: Performed By: #### C BC #### [facility] [address] [place] [address] Dr. Dereje Glasgow IG # 0.01 10e3/ul Normal 0.00-0.03 [facility] Comment on above: Performed By: #### C BC #### [facility] [address] [place] [address] Dr. Dereje Glasgow IG % 0.2 % Normal 0.0-0.5 [facility] Comment on above: Performed By: #### C BC #### [facility] [address] [place] [address] Dr. Dereje Glasgow LYMPH # 1.7 103/ul Normal 1.2-3.8 [facility] Comment on above: Performed By: #### C BC #### [facility] [address] [place] [address] Dr. Dereje Glasgow Lymphocytes/100 WBC (Bld) 31.7 % Normal 20.5-60.0 [facility] Comment on above: Performed By: #### C BC #### [facility] [address] [place] [address] Dr. Dereje Glasgow MANUAL DIFF REQ NO Normal [facility] Comment on above: Performed By: #### C BC #### [facility] [address] [place] [address] Dr. Dereje Glasgow MCH (RBC) [Entitic mass] 32.4 pg Normal 26.7-34.0 [facility] Comment on above: Performed By: #### C BC #### [facility] [address] [place] [address] Dr. Dereje Glasgow MCHC (RBC) [Mass/Vol] 34.8 g/dL Normal 29.9-35.2 [facility] Comment on above: Performed By: #### C BC #### [facility] [address] [place] [address] Dr. Dereje Glasgow MCV (RBC) [Entitic vol] 93.1 fL Normal 79.1-95.6 [facility] Comment on above: Performed By: #### C BC #### [facility] [address] [place] [address] Dr. Dereje Glasgow MONO # 0.6 103/ul Normal 0.3-0.8 [facility] Comment on above: Performed By: #### C BC #### [facility] [address] [place] [address] Dr. Dereje Glasgow Monocytes/100 WBC (Bld) 11.0 % Normal 1.7-12.0 [facility] Comment on above: Performed By: #### C BC #### [facility] [address] [place] [address] Dr. Dereje Glasgow NEUT # 3.0 103/ul Normal 1.4-6.5 [facility] Comment on above: Performed By: #### C BC #### [facility] [address] [place] [address] Dr. Dereje Glasgow Neutrophils/100 WBC (Bld) 55.0 % Normal 43.0-75.0 [facility] Comment on above: Performed By: #### C BC #### [facility] [address] [place] [address] Dr. Dereje Glasgow Platelet mean volume (Bld) [Entitic vol] 9.6 fL Normal 9.5-13.5 [facility] Comment on above: Performed By: #### C BC #### [facility] [address] [place] [address] Dr. Dereje Glasgow PLT 283 103/ul Normal 150-450 [facility] Comment on above: Performed By: #### C BC #### [facility] [address] [place] [address] Dr. Dereje Glasgwo RBC 4.63 106/ul Normal 3.40-5.30 [facility] Comment on above: Performed By: #### C BC #### [facility] [address] [place] [address] Dr. Dereje Glasgow WBC 5.4 103/ul Normal 4.0-11.0 [facility] Comment on above: Performed By: #### C BC #### [facility] [address] [place] [address] Dr. Dereje Glasgow CRPon 09-17-2022 CRP [Mass/Vol] mg/L Normal <=1.0 [facility] Comment on above: Performed By: #### L IVER, CRP, BMP #### [facility] [address] [address] [address] Dereje Glasgow LIVER PROFILEon 09-17-2022 Albumin [Mass/Vol] 4.1 g/dL Normal 3.4-5.0 [facility] Comment on above: Performed By: #### L IVER, CRP, BMP #### [facility] [address] [place] [address] [address] Dereje Glasgow Albumin/Globulin [Mass ratio] 1.4 {ratio} Normal [facility] Comment on above: Performed By: #### L IVER, CRP, BMP #### [facility] [address] [place] [address] Dr. Dereje Glasgow ALP [Catalytic activity/Vol] 68 U/L Normal 65-260 [facility] Comment on above: Performed By: #### L IVER, CRP, BMP #### [facility] [address] [place] [address] [address] Dereje Glasgow ALT [Catalytic activity/Vol] 16 U/L Normal 14-59 [facility] Comment on above: Performed By: #### L IVER, CRP, BMP #### [facility] [address] [place] [address] [address] Dereje Glasgow AST [Catalytic activity/Vol] 15 U/L Normal 15-37 [facility] Comment on above: Performed By: #### L IVER, CRP, BMP #### [facility] [address] [place] [address] [address] Dereje Glasgow BILI, CONJUGATED 0.1 mg/dL Normal 0.0-0.2 [facility] Comment on above: Performed By: #### L IVER, CRP, BMP #### [facility] [address] [place] [address] [address] Dereje Glasgow Bilirubin [Mass/Vol] 0.4 mg/dL Normal 0.2-1.0 [facility] Comment on above: Performed By: #### L IVER, CRP, BMP #### [facility] [address] [place] [address] [address] Dereje Glasgow Globulin (S) [Mass/Vol] 2.9 g/dL Normal [facility] Comment on above: Performed By: #### L IVER, CRP, BMP #### [facility] [address] [place] [address] Dr. Dereje Glasgow Protein [Mass/Vol] 7.0 g/dL Normal 6.4-8.2 [facility] Comment on above: Performed By: #### L IVER, CRP, BMP #### [facility] [address] [place] [address] Dr. Dereje Glasgow PROF CHEM 8 (BAS METB)on Anion gap [Moles/Vol] 13.4 mmol/L Normal [facility] Comment on above: Performed By: #### L IVER, CRP, BMP #### [facility] [address] [place] [address] Dr. Dereje Glasgow Calcium [Mass/Vol] 9.0 mg/dL Normal 8.5-10.1 [facility] Comment on above: Performed By: #### L IVER, CRP, BMP #### [facility] [address] [place] [address] Dr. Dereje Glasgow Chloride [Moles/Vol] 106 mmol/L Normal 98-107 [facility] Comment on above: Performed By: #### L IVER, CRP, BMP #### [facility] [address] [place] [address] Dr. Dereje Glasgow CO2 [Moles/Vol] 23.4 mmol/L Normal 21.0-32.0 [facility] Comment on above: Performed By: #### L IVER, CRP, BMP #### [facility] [address] [place] [address] Dr. Dereje Glasgow Creatinine [Mass/Vol] 0.83 mg/dL Normal 0.55-1.02 [facility] Comment on above: Performed By: #### L IVER, CRP, BMP #### [facility] [address] [place] [address] [address] Dereje Glasgow Glucose [Mass/Vol] 103 mg/dL Normal 74-106 [facility] Comment on above: Performed By: #### L IVER, CRP, BMP #### [facility] [address] [place] [address] [address] Dereje Glasgow Potassium [Moles/Vol] 3.8 mmol/L Normal 3.5-5.1 [facility] Comment on above: Performed By: #### L IVER, CRP, BMP #### [facility] [address] [place] [address] [address] Dereje Glasgow Sodium [Moles/Vol] 139 mmol/L Normal 136-145 [facility] Comment on above: Performed By: #### L IVER, CRP, BMP #### [facility] [address] [place] [address] Dr. Dereje Glasgow Urea nitrogen [Mass/Vol] 4.0 mg/dL Critically low 6.4-19.3 [facility] Comment on above: Performed By: #### L IVER, CRP, BMP #### [facility] [address] [address] [address] Dereje Glasgow Urea nitrogen/Creatinine [Mass ratio] 4.8 mg/mg Normal [facility] Comment on above: Performed By: #### L IVER, CRP, BMP #### [facility] [address] [place] [address] Dr. Dereje Glasgow SED RATE WESTERGRENon 2022 SED RATE 2 mm/hr Normal <=20 [facility] Comment on above: Performed By: #### S EDR #### [facility] [address] [place] [address] Dr. Dereje Glasgow Quick Strepon 08-19-2022 S. pyogenes Org specific cx Ql (Throat) Negative [employer] Other Quick Strep [employer] [facility] [employer] Other [facility]07 SARS-CoV-2 (COVID-19) RNA DAVID+probe Ql (Unsp spec) Detected Critically abnormal NOT DETECTED [facility] Comment on above: Result Comment: This test is not yet approved or cleared by the [place] FDA. When there are no FDA-approved or cleared tests available, and other criteria are met, FDA can make tests available under an emergency access mechanism called an Emergency Use Authorization (EUA). The EUA for this test is supported by the [place] of Health and Human Service's (HHS's) declaration [...] used). Performed By: #### C VDTBH #### [facility] [address] [address] [address] Dereje Glasgow Covid-19 PCR ([facility])on 03-07 SARS-CoV-2 (COVID-19) RNA DAVID+probe Ql ([employer]) Not detected Normal NOT DETECTED [facility] Comment on above: Result Comment: This test is not yet approved or cleared by the [place] FDA. When there are no FDA-approved or cleared tests available, and other criteria are met, FDA can make tests available under an emergency access mechanism called an Emergency Use Authorization (EUA). The EUA for this test is supported by the [place] of Health and Human Service's (HHS's) declaration [...] SARS-CoV-2. Performed By: #### C VDTBH #### [facility] [address] [address] [address] Dereje Glasgow GROUP A STREP CULTUREon 03-07 S. pyogenes Ag Ql (Unsp spec) Culture Observations: NEGATIVE FOR GROUP A STREPTOCOCCUS. Normal [facility] Comment on above: Performed By: #### S SCRN, GRASTCX #### [facility] [address] [address] [address] Dereje Glasgow STREPT SCREENon 03-22-2022 STREP SCREEN A Negative Normal NEGATIVE [facility] Comment on above: Performed By: #### S SCRN, GRASTCX #### [facility] [address] [address] [address] Dereje Glasgow COVID Quick Testingon 2020 Result Negative [employer] Other Quick Strepon 07-22-2021 S. pyogenes Org specific cx Ql (Throat) Negative [employer] Other Quick Strep [employer] Other PULMONARY FUNCTION (450)on 09-21-2018 PULMONARY FUNCTION (450) [address] [id number] PULMONARY FUNCTION PATIENT NAME: URSZULA TROTTER : 2005 MED REC NO: [id number] ROOM: ACCOUNT NO: [id number] ADMIT DATE: 07/18/2019 PROVIDER: Joanie Page DATE [...] exercise-induced bronchial reactivity. JOANIE PAGE [id number] Doc#: [id number] CC: Alberto Enamorado [facility] Vital Signs Date Time Vital Sign Value Performing Clinician Facility 02-27-2025 14:44-0400 Body height 170.2 cm Alberto Enamorado MD Work Phone: [facility] 02-27-2025 14:44-0400 Body mass index (BMI) [Ratio] 24.75 kg/m2 Alberto Enamorado MD Work Phone: [facility] 02-27-2025 14:44-0400 Body temperature 97.81 [degF] Alberto Enamorado MD Work Phone: [facility] 02-27-2025 14:44-0400 Body weight 71.67 kg Alberto Enamorado MD Work Phone: [facility] 02-27-2025 14:44-0400 Diastolic blood pressure 66 mm[Hg] Alberto Enamorado MD Work Phone: [facility] 02-27-2025 14:44-0400 Heart rate 105 /min Alberto Enamorado MD Work Phone: [facility] 02-27-2025 14:44-0400 Respiratory rate 20 /min Alberto Enamorado MD Work Phone: [facility] 02-27-2025 14:44-0400 SaO2% (BldA) [Mass fraction] 98 % Alberto Enamorado MD Work Phone: [facility] 02-27-2025 14:44-0400 Systolic blood pressure 122 mm[Hg] Alberto Enamorado MD Work Phone: [facility] 12-04-2024 14:10-0400 Body temperature 98.4 [degF] [facility] DPM [facility] 12-04-2024 14:10-0400 Diastolic blood pressure 73 mm[Hg] Vic Andersen DPM [facility] 12-04-2024 14:10-0400 Heart rate 91 /min Vic Andersen DPM [facility] 12-04-2024 14:10-0400 Respiratory rate 14 /min Vic Andersen DPM [facility] 12-04-2024 14:10-0400 SaO2% (BldA) [Mass fraction] 100 % Vic Andersen DPM [facility] 12-04-2024 14:10-0400 Systolic blood pressure 119 mm[Hg] Vic Andersen DPM [facility] 12-04-2024 09:27-0400 Body height 170.2 cm Vic Andersen DPM [facility] 12-04-2024 09:27-0400 Body mass index (BMI) [Ratio] 23.96 kg/m2 Vic Andersen DPM [facility] 12-04-2024 09:27-0400 Body weight 69.4 kg Vic Andersen DPM [facility] 11-27-2024 09:31-0400 Body height 170.2 cm Alberto Enamorado MD Work Phone: [facility] 11-27-2024 09:31-0400 Body mass index (BMI) [Ratio] 24.43 kg/m2 Alberto Enamorado MD Work Phone: [facility] 11-27-2024 09:31-0400 Body temperature 98.01 [degF] Alberto Enamorado MD Work Phone: [facility] 11-27-2024 09:31-0400 Body weight 70.76 kg Alberto Enamorado MD Work Phone: [facility] 11-27-2024 09:31-0400 Diastolic blood pressure 76 mm[Hg] Alberto Enamorado MD Work Phone: [facility] 11-27-2024 09:31-0400 Heart rate 93 /min Alberto Enamorado MD Work Phone: [facility] 11-27-2024 09:31-0400 Respiratory rate 20 /min Alberto Enamorado MD Work Phone: [facility] 11-27-2024 09:31-0400 SaO2% (BldA) [Mass fraction] 99 % Alberto Enamorado MD Work Phone: [facility] 11-27-2024 09:31-0400 Systolic blood pressure 110 mm[Hg] Alberto Enamorado MD Work Phone: [facility] 10-07-2024 11:49-0500 Body height 170.2 cm Alberto Enamorado MD Work Phone: [facility] 10-07-2024 11:49-0500 Body mass index (BMI) [Ratio] 23.65 kg/m2 Alberto Enamorado MD Work Phone: [facility] 10-07-2024 11:49-0500 Body temperature 97.81 [degF] Alberto Enamorado MD Work Phone: [facility] 10-07-2024 11:49-0500 Body weight 68.49 kg Alberto Enamorado MD Work Phone: [facility] 10-07-2024 11:49-0500 Diastolic blood pressure 66 mm[Hg] Alberto Enamorado MD Work Phone: [facility] 10-07-2024 11:49-0500 Heart rate 102 /min Alberto Enamorado MD Work Phone: [facility] 10-07-2024 11:49-0500 Respiratory rate 18 /min Alberto Enamorado MD Work Phone: [facility] 10-07-2024 11:49-0500 SaO2% (BldA) [Mass fraction] 99 % Alberto Enamorado MD Work Phone: [facility] 10-07-2024 11:49-0500 Systolic blood pressure 124 mm[Hg] Alberto Enamorado MD Work Phone: [facility] 07-16-2024 11:32-0500 Body height 170.2 cm Alberto Enamorado MD Work Phone: [facility] 07-16-2024 11:32-0500 Body mass index (BMI) [Percentile] Per age and sex 71.61 % Alberto Enamorado MD Work Phone: [facility] 07-16-2024 11:32-0500 Body mass index (BMI) [Ratio] 23.65 kg/m2 Alberto Enamorado MD Work Phone: [facility] 07-16-2024 11:32-0500 Body temperature 97.11 [degF] Alberto Enamorado MD Work Phone: [facility] 07-16-2024 11:32-0500 Body weight 68.49 kg Alberto Enamorado MD Work Phone: [facility] 07-16-2024 11:32-0500 Diastolic blood pressure 70 mm[Hg] Alberto Enamorado MD Work Phone: [facility] 07-16-2024 11:32-0500 Heart rate 125 /min Alberto Enamorado MD Work Phone: [facility] 07-16-2024 11:32-0500 Respiratory rate 22 /min Alberto Enamorado MD Work Phone: [facility] 07-16-2024 11:32-0500 SaO2% (BldA) [Mass fraction] 98 % Alberto Enamorado MD Work Phone: [facility] 07-16-2024 11:32-0500 Systolic blood pressure 124 mm[Hg] Alberto Enamorado MD Work Phone: [facility] 05-23-2024 15:50-0400 Body height 170.2 cm Alberto Enamorado MD Work Phone: [facility] 05-23-2024 15:50-0400 Body mass index (BMI) [Percentile] Per age and sex 69.49 % Alberto Enamorado MD Work Phone: [facility] 05-23-2024 15:50-0400 Body mass index (BMI) [Ratio] 23.34 kg/m2 Alberto Enamorado MD Work Phone: [facility] 05-23-2024 15:50-0400 Body temperature 97.5 [degF] Alberto Enamorado MD Work Phone: [facility] 05-23-2024 15:50-0400 Body weight 67.59 kg Alberto Enamorado MD Work Phone: [facility] 05-23-2024 15:50-0400 Diastolic blood pressure 64 mm[Hg] Alberto Enamorado MD Work Phone: [facility] 05-23-2024 15:50-0400 Heart rate 115 /min Alberto Enamorado MD Work Phone: [facility] 05-23-2024 15:50-0400 Respiratory rate 22 /min Alberto Enamorado MD Work Phone: [facility] 05-23-2024 15:50-0400 SaO2% (BldA) [Mass fraction] 98 % Alberto Enamorado MD Work Phone: [facility] 05-23-2024 15:50-0400 Systolic blood pressure 120 mm[Hg] Alberto Enamorado MD Work Phone: [facility] 02-23-2024 16:24-0400 Body height 170.18 cm MD Alberto Enamorado Work Phone: [facility] 02-23-2024 16:24-0400 Body mass index (BMI) [Percentile] Per age and sex 59.3 % MD Alberto Enamorado Work Phone: [facility] 02-23-2024 16:24-0400 Body mass index (BMI) [Ratio] 22.2 kg/m2 MD Alberto Enamorado Work Phone: [facility] 02-23-2024 16:24-0400 Body temperature 98 [degF] MD Alberto Enamorado Work Phone: [facility] 02-23-2024 16:24-0400 Body weight 64.46 kg MD Alberto Enamorado Work Phone: [facility] 02-23-2024 16:24-0400 Diastolic blood pressure 68 mm[Hg] MD Alberto Enamorado Work Phone: [facility] 02-23-2024 16:24-0400 Heart rate 79 /min MD Alberto Enamorado Work Phone: [facility] 02-23-2024 16:24-0400 Respiratory rate 18 /min MD Alberto Enamorado Work Phone: [facility] 02-23-2024 16:24-0400 SaO2% (BldA) [Mass fraction] 99 % MD Alberto Enamorado Work Phone: [facility] 02-23-2024 16:24-0400 Systolic blood pressure 105 mm[Hg] MD Alberto Enamorado Work Phone: [facility] 10-01-2023 14:14-0500 Body height 170.18 cm [facility] 10-01-2023 14:14-0500 Body mass index (BMI) [Percentile] Per age and sex 39.4 % [facility] 10-01-2023 14:14-0500 Body mass index (BMI) [Ratio] 20.5 kg/m2 [facility] 10-01-2023 14:14-0500 Body weight 59.59 kg [facility] 10-01-2023 14:14-0500 Heart rate 82 /min [facility] 10-01-2023 14:14-0500 Respiratory rate 16 /min [facility] 10-01-2023 14:14-0500 SaO2% (BldA) [Mass fraction] 98 % [facility] 08-19-2022 16:40-0500 Body height 167.64 cm Iona Rosas Other [employer] Other 08-19-2022 16:40-0500 Body mass index (BMI) [Ratio] 20.98 kg/m2 Iona Rosas Other [employer] Other 08-19-2022 16:40-0500 Body temperature 99 [degF] Iona Rosas Other [employer] Other 08-19-2022 16:40-0500 Body weight 58.97 kg Iona Rosas Other [employer] Other 08-19-2022 16:40-0500 Respiratory rate 18 /min Iona Rosas Other [employer] Other 08-19-2022 16:40-0500 SaO2% (BldA) [Mass fraction] 99 % Iona Rosas Other [employer] Other 07-22-2021 15:00-0500 Body height 171.45 cm Haven Lynch Other [employer] Other 07-22-2021 15:00-0500 Body mass index (BMI) [Ratio] 24.5 kg/m2 Haven Lynhc Other [employer] Other 07-22-2021 15:00-0500 Body temperature 97.4 [degF] Haven Lynch Other [employer] Other 07-22-2021 15:00-0500 Body weight 72.03 kg Haven Lynch Other [employer] Other 07-22-2021 15:00-0500 Respiratory rate 18 /min Haven Lynch Other [employer] Other 07-22-2021 15:00-0500 SaO2% (BldA) [Mass fraction] 98 % Haven Lynch Other [employer] Other Encounters Encounter Date Encounter Type Care Provider Facility Start: 03-14-2025 End: 03-14-2025 Clinisync Result Encounter Alberto Enamorado MD Work Phone: [facility] Unsolicited Start: 03-14-2025 End: 03-14-2025 Clinisync Result Encounter Alberto Enamorado MD Work Phone: [facility] Unsolicited Start: 02-27-2025 End: 02-27-2025 Office outpatient visit 25 minutes Alberto Enamorado MD Work Phone: [facility] Comment on above: Palpitation (Primary Dx); Migraine without aura and without status migrainosus, not intractable ; ROXANA (generalized anxiety disorder) ; Mild intermittent asthma without complication (HCC); Seasonal allergic rhinitis due to pollen Start: 02-27-2025 End: 02-27-2025 ambulatory ALBERTO ENAMORADO Not Available Start: 02-27-2025 End: 02-27-2025 Bamboo flowsheet Alberto Enamorado MD Work Phone: [facility] Start: 02-27-2025 End: 02-27-2025 Bamboo flowsheet Alberto Enamorado MD Work Phone: [facility] Start: 01-05-2025 End: 01-05-2025 Emergency department patient visit ALBERTO ENAMORADO [facility] Start: 12-04-2024 End: 12-04-2024 Clinisync Result Encounter Generic External Data Provider [facility] External [facility] Unsolicited Start: 12-04-2024 End: 12-04-2024 Clinisync Result Encounter Generic External Data Provider [facility] External [facility] Unsolicited Start: 12-04-2024 End: 12-04-2024 Subsequent hospital visit by physician Vic Andersen DPM Work Phone: [facility] Start: 11-27-2024 End: 11-27-2024 Bamboo flowsheet Alberto Enamorado MD Work Phone: [facility] Start: 11-27-2024 End: 11-27-2024 Bamboo flowsheet Alberto Enamorado MD Work Phone: [facility] Start: 11-27-2024 End: 11-27-2024 Office outpatient visit 15 minutes Alberto Enamorado MD Work Phone: [facility] Comment on above: RUQ pain (Primary Dx ); Endometriosis Start: 11-27-2024 End: 11-27-2024 ambulatory ALBERTO ENAMORADO Not Available Start: 11-11-2024 End: 11-11-2024 ambulatory VIC ANDERSEN [facility] Start: 10-07-2024 End: 10-07-2024 Bamboo flowsheet Alberto Enamorado MD Work Phone: [facility] Start: 10-07-2024 End: 10-07-2024 Bamboo flowsheet Alberto Enamorado MD Work Phone: [facility] Start: 10-07-2024 End: 10-07-2024 Clinisync Result Encounter Alberto Enamorado MD Work Phone: [facility] Unsolicited Start: 10-07-2024 End: 10-07-2024 Office outpatient visit 25 minutes Alberto Enamorado MD Work Phone: [facility] Comment on above: ROXANA (generalized anx iety disorder) (CMS/HCC) (Primary Dx); Migraine without aura and without status migrainosus, not intractable (CMS/HCC); Mild intermittent asthma without complication (CMS/HCC); Seasonal allergic rhinitis due to pollen; RUQ pain; Endometriosis Start: 10-07-2024 End: 10-07-2024 ambulatory ALBERTO ENAMORADO Not Available Start: 07-16-2024 End: 07-16-2024 Bamboo flowsheet Alberto Enamorado MD Work Phone: [facility] Start: 07-16-2024 End: 07-16-2024 Bamboo flowsheet Alberto [...] 03-12-2024 ambulatory MD Alberto Enamorado Work Phone: [facility] Work Phone: Start: 03-12-2024 End: 03-12-2024 Departed Referred MD Alberto Enamorado Work Phone: [facility] Start: 03-06-2024 End: 03-06-2024 ambulatory LAKHWINDER RODRIGUEZ Not Available Start: 02-23-2024 End: 02-23-2024 ambulatory MD Alberto Enamorado Work Phone: [facility] Work Phone: Start: 02-23-2024 End: 02-23-2024 Patient encounter procedure MD Alberto Enamorado Work Phone: [facility] [place] Work Phone: Start: 10-01-2023 End: 10-01-2023 ambulatory [facility] Work Phone: Start: 10-01-2023 End: 10-01-2023 Patient encounter procedure [facility] [place] Work Phone: Start: 09-05-2023 Patient encounter procedure Alberto Enamorado MD Work Phone: [facility] Start: 01-17-2023 End: 01-18-2023 ambulatory AFSER RAMAKRISHNA Facility:[facility] Start: 09-17-2022 End: 09-18-[address] ALBERTO ENAMORADO Facility:[facility] Start: 08-19-2022 End: 08-19-2022 ambulatory Iona Rosas Other [employer] Other Start: 08-19-2022 Office outpatient vi sit 25 minutes Iona Rosas [facility] [place] Start: 03-24-2022 End: 03-24-2022 ambulatory THOMAS MCLAUGHLIN Facility:[facility] Start: 03-22-2022 End: 03-22-[address] ALBERTO ENAMORADO Facility:[facility] Start: 07-22-2021 (URG) Urgent Care Visit Haven bearden [facility] [place] Start: 07-22-2021 End: 07-22-2021 ambulatory Haven Lynch Other [employer] Other Start: 07-18-2019 End: 07-19-2019 Patient encounter procedure [facility] Procedures Date Procedure Procedure Detail Performing Clinician Start: 03-14-2025 ALL CBC WITH AUTO DIFF Alberto Enamorado MD Work Phone: Start: 03-14-2025 ALL MAGNESIUM Alberto arguello MD Work Phone: Start: 03-14-2025 [facility] CMP (CMP) ([facility] USE) Alberto Enamorado MD Work Phone: Start: 03-14-2025 TSH W/REFLEX T4 Alberto flood MD Work Phone: Start: 12-04-2024 XR CALCANEUS RIGHT ( MIN 2 VIEWS) Generic External Data Provider Start: 12-04-2024 XR FOOT RIGHT (MIN 3 VIEWS) Generic External Data Provider Start: 12-04-2024 FLUORO FOR SURGICAL PROCEDURES Generic External Data Provider Start: 12-04-2024 Fluoroscopy during operation Vic Andersen DPM Work Phone: Start: 12-04-2024 ALL HCG SERUM,QUALITATIVE Generic External Data Provider Start: 12-04-2024 Gonadotropin chorion ic qualitative Srikanth Matamoros MD Work Phone: Start: 10-07-2024 ALL CBC WITH AUTO DIFF Alberto Enamorado MD Work Phone: Start: 02-23-2024 Plain X-ray of right wrist MD Alberto Enamorado Work Phone: Start: 10-01-2023 COVID/Influenza Anti gen (POC) Start: 07-18-2019 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 w/admn agt JOANIE PAGE Plan of Treatment Date Care Activity Detail Author Start: 05-26-2025 End: 05-26-2025 Patient encounter procedure 05/26/2025 9:45 AM EDT Office Visit [facility] [address] [place] [address] Alberto Enamorado MD [address] [place] [address] [facility] Start: 04-07-2025 Influenza vaccination Influenza Vacc ine (#1) [facility] Start: 02-27-2025 End: 02-27-2025 Patient encounter procedure [facility] Comment on above: Arrived Start: 02-27-2025 End: 02-27-2026 CBC W Auto Differential panel - Blood CBC and differential Lab Routine Palpitation Expected: 02/27/2025 (Approximate), Expires: 02/27/2026 [facility] Work Phone: Comment on above: Expected: 02/27/2025 (Approximate), Expires: 02/27/2026 Start: 02-27-2025 End: 02-27-2026 Comprehensive metabolic 2000 panel - Serum or Plasma Comprehensive metabolic panel Lab Routine Palpitation Expected: 02/27/2025 (Approximate), Expires: 02/27/2026 [facility] Comment on above: Expected: 02/27/2025 (Approximate), Expires: 02/27/2026 Start: 02-27-2025 End: 02-27-2026 Magnesium [Mass/volume] in Serum or Plasma Magnesium Lab Routine Palpitation Expected: 02/27/2025 (Approximate), Expires: 02/27/2026 [facility] Comment on above: Expected: 02/27/2025 (Approximate), Expires: 02/27/2026 Start: 02-27-2025 End: 02-27-2026 TSH W/REFLEX TO FT4 TSH W/REFLEX TO FT4 Lab Routine Palpitation Expected: 02/27/2025 (Approximate), Expires: 02/27/2026 [facility] Comment on above: Expected: 02/27/2025 (Approximate), Expires: 02/27/2026 Start: 12-30-2024 Meningococcal B vacc ine (2 of 2 - Bexsero SCDM 2-dose series) Meningococcal B vaccine (2 of 2 - Bexsero SCDM 2-dose series) [facility] Start: 11-27-2024 End: 11-27-2024 Patient encounter procedure 11/27/2024 9:15 AM EDT [facility] [address] [place] [address] Alberto Enamorado MD [address] [place] [address] Arrived [facility] Comment on above: Arrived Start: 10-07-2024 End: 10-07-2025 Basic metabolic 1998 panel - Serum or Plasma Basic metabolic panel Lab Routine RUQ pain Expected: 10/07/2024 (Approximate), Expires: 10/07/2025 [facility] Work Phone: Comment on above: Expected: 10/07/2024 (Approximate), Expires: 10/07/2025 Start: 10-07-2024 End: 10-07-2025 CBC W Auto Differential panel - Blood CBC and differential Lab Routine RUQ pain Expected: 10/07/2024 (Approximate), Expires: 10/07/2025 [facility] Comment on above: Expected: 10/07/2024 (Approximate), Expires: 10/07/2025 Start: 10-07-2024 End: 10-07-2025 Hepatic function 2000 panel - Serum or Plasma Hepatic function panel Lab Routine RUQ pain Expected: 10/07/2024 (Approximate), Expires: 10/07/2025 [facility] Comment on above: Expected: 10/07/2024 (Approximate), Expires: 10/07/2025 Start: 10-07-2024 End: 10-07-2024 Patient encounter procedure [facility] Comment on above: Arrived Start: 2024 Pneumococcal 0-49 ye ars Vaccine (1 of 2 - PCV) Pneumococcal 0-49 years Vaccine (1 of 2 - PCV) [facility] Start: 07-16-2024 End: 07-16-2024 Patient encounter procedure 07/16/2024 11:30 AM EST Office Visit [facility] [address] [place] [id number] Alberto Enamorado MD [address] [place] [address] Arrived [facility] Comment on above: Arrived Start: 05-23-2024 End: 05-23-2024 Patient encounter procedure 05/23/2024 4:00 PM EDT Office Visit [facility] [address] [place] [address] Alberto Enamorado MD [address] [place] [address] Arrived [facility] Comment on above: Arrived Start: 04-07-2024 Influenza vaccination Influenza Vacc ine (#1) [facility] Start: 2023 Hepatitis C screening Hepatitis C sc reen [facility] Start: 2021 Screening for Chlamy kirsten trachomatis Chlamydia/GC screen [facility] Start: 2020 HIV screening HIV screen [facility] Start: 2020 HPV vaccine (1 - 3-d ose series) HPV vaccine (1 - 3-dose series) [facility] Start: 2017 Depression Screen [facility] Start: 2016 DTaP/Tdap/Td vaccine (6 - Tdap) DTaP/Tdap/Td vaccine (6 - Tdap) [facility] End: 12-04-2024 Blood glucose - POCT Blood glucose - POCT Point of Care Testing Routine One Time for 1 Occurrences starting 12/04/2024 until 12/04/2024 [facility] Comment on above: One Time for 1 Occur rences starting 12/04/2024 until 12/04/2024 End: 12-04-2024 INITIATE PACU OXYGEN THERAPY PROTOCOL Initiate PACU Oxygen Therapy Protocol Respiratory Care Routine Continuous until discontinued starting 12/04/2024 [facility] Comment on above: Continuous until dis continued starting 12/04/2024 Oxygen therapy [[facility] Data Set] Initiate Oxygen Therapy Protocol Respiratory Care Routine As Needed until discontinued starting 12/04/2024 [facility] Work Phone: Comment on above: As Needed until disc ontinued starting 12/04/2024 End: 12-04-2024 , urine POCT , urine POCT Point of Care Testing Routine One Time for 1 Occurrences starting 12/04/2024 until 12/04/2024 [facility] Comment on above: One Time for 1 Occur rences starting 12/04/2024 until 12/04/2024 End: 12-04-2024 XR Calcaneus - right 2 Views [facility] Comment on above: Once for 1 Occurrenc es starting 12/04/2024 until 12/04/2024 End: 12-04-2024 XR Foot - right 3 Views [facility] [employer] Work Phone: Comment on above: Once for 1 Occurrenc es starting 12/04/2024 until 12/04/2024 Immunizations Immunization Date Immunization Notes Care Provider [facility] 06-17-2024 influenza virus vaccine, unspecified formulation Alberto Enamorado MD Work Phone: [facility] 07-06-2023 influenza virus vaccine, unspecified formulation Alberto Enamorado MD Work Phone: [facility] 08-15-2016 influenza, injectabl e, quadrivalent, preservative free Vic Andersen DPM Work Phone: [facility] 09-08-2011 influenza virus vaccine, unspecified formulation Vic Andersen DPM Work Phone: [facility] Payers Date Payer Category Payer Self-pay [id number] 2023 [facility] Blue Shield [id number] 2023 Unknown [id number] 2023 Unknown [id number] 2015 Unknown [id number] 2005 Unknown [id number] 2.16. [id number] 2005 Unknown [id number] 2.16. [id number] 2005 Unknown [id number] 2.16.8 [id number] 2005 Unknown [id number] 2.16.84 [id number] 2005 Unknown [id number] 2.16.84 [id number] 2005 Unknown [id number] 2.16.84 [id number] 2005 Unknown [id number] 2.16.84 [id number] 2005 Unknown [id number] 2.16.84 [id number] 2005 Unknown [id number] 2.16.84 0.1.307899.3.579.2.1259 1971 Unknown [id number] 2.16.84 0.1.089029.3.579.2.593 1971 Unknown [id number] 2.16.84 [id number] 1971 Unknown [id number] 2.16.84 [id number] 1969 Unknown [id number] 2.16.8 [id number] 1959 Unknown [id number] [facility] [id number] Unknown [id number] 2.16.8 [id number] Unknown [id number] 2.16.8 [id number] Social History Date Type Detail Facility Unknown if ever smoked [employer] Other Start: 09-05-2023 End: 03-06-2024 Sex Assigned At [facility] Start: 06-01-2023 End: 10-01-2023 Tobacco smoking status NHIS Never smoked tobacco (finding) [facility] Start: 2005 Sex Assigned At Female F [facility] Start: 06-01-2023 End: 12-03-2024 Tobacco use and exposure Smokeless tobacco non-user [facility] Start: 03-20-2024 End: 02-27-2025 Alcoholic beverage intake Lifetime non-drinker (finding) [facility] Start: 09-05-2023 End: 03-06-2024 History of Social function [facility] Start: 2005 Sex assigned at Not on file [facility] History of tobacco use Passive smoker [place] Start: 12-04-2024 Alcoholic beverage intake Ex-drinker (finding) [place] Physical abuse Denies [place] Start: 12-03-2024 Tobacco Comment both parents smoke [place] Start: 09-16-2012 Sex Female (finding) [place] [facility] [employer] Procedure Code Equipment Code Equipment Origin al Text Equipment Identifier Dates Screw Bne L50mm Dia7mm Xl Full Thrd Compr - [id number], [id number] FDA Start: 12-04-2024 System Orthopedi c 4.75 Mm Fdl - [id number] Start: 12-04-2024 Clinical Notes 07-22-2021 to 02-27-2025 Alberto Enamorado MD - 02/27/2025 3:10 PM EDMagui Enamorado MD - 02/27/2025 3:10 PM Devonte Enamorado MD - 02/27/2025 3:09 PM Devonte Enamorado MD - 02/27/2025 3:09 PM EDTDischarge Instructions Note Date & Type Note Facility 02-27-2025 History of Present illness Narrative Associated Problem(s): Seasonal allergic rhinitis due to pollen Symptoms controlled with medication and continue. Associated Problem(s): Palpitation Frequent symptoms causing lightheadedness. Check labs and Holter. Associated Problem(s): Mild intermittent asthma without complication (HCC) Symptoms controlled with flovent and continue. Use albuterol PRN. Associated Problem(s): Migraine without aura and without status migrainosus, not intractable HENRY controlled with topamax and continue. Use maxalt PRN. Associated Problem(s): ROXANA (generalized anxiety disorder) Symptoms stable and monitor. Images from the original note were not included. Subjective Patient ID: Urszula Bullard is a 19 y.o. female who presents for Follow-up (3m f/u) and Dizziness (With High heart rate. ). Follow up anxiety, migraines, asthma, and allergies. C/o palpitations and heart racing over the past several months. Wears an Apple watch and often will get an alert that pulse is elevated. Often over 130 and as high as 176. Patient feels heart racing and skipping beats. Often feels lightheaded and dizzy when having palpitations. No LOC. Symptoms occur with activity or rest. Recently not as active over past several months due to foot surgery. Anxiety stable. Not as stressed out or overwhelmed. Not as nervous or worry as much. Not as king or irritable. Migraines stable and HENRY 2-3 times a month. Throbbing pain in entire head associated with photophobia, phonophobia and nausea. Uses maxalt PRN and helps when needed. Asthma stable. No SOB or cough with exertion. No nocturnal cough or SOB. Using albuterol few times a month and helps. Allergies controlled with medication. No congestion or rhinorrhea. No HENRY or sinus pressure. Ears not plugged or popping. Dizziness Pertinent negatives include no abdominal pain, chest pain, coughing, nausea or vomiting. Review of Systems Respiratory: Negative for cough, shortness of breath and wheezing. Cardiovascular: Negative for chest pain and palpitations. Gastrointestinal: Negative for abdominal pain, diarrhea, nausea and vomiting. Genitourinary: Negative for dysuria. Neurological: Positive for dizziness. Objective Physical Exam Constitutional: General: She is [...] Assessment/Plan Problem List Items Addressed This Visit Mild intermittent asthma without complication (HCC) Symptoms controlled with flovent and continue. Use albuterol PRN. Migraine without aura and without status migrainosus, not intractable HENRY controlled with topamax and continue. Use maxalt PRN. Seasonal allergic rhinitis due to pollen Symptoms controlled with medication and continue. ROXANA (generalized anxiety disorder) Symptoms stable and monitor. Palpitation - Primary Frequent symptoms causing lightheadedness. Check labs and Holter. Relevant Orders CBC and differential Comprehensive metabolic panel Magnesium TSH W/REFLEX TO FT4 documented in this encounter [facility] 12-04-2024 Hospital Discharge instructions Antonio Us DPM - 12/04/2024 1:11 PM EDT Images from the original note were not included. Foot and Ankle Surgery Post Operative Instructions: You have had a surgical procedure on your foot/ ankle Fluids and Diet: Begin with clear liquids, broth, dry toast, and crackers. If not nauseated then resume your regular pre-operative diet when you are ready With a history of diabetes, please lower your intake sugar content food as this will negatively impact surgery. Medications: Take your prescriptions as directed You received popliteal block (nerve block in the back of knee)- this should manage your pain for the first 18hrs post operatively If your pain is not severe then you may take the non-prescription medication that you normally take for aches and pains ie Tylenol and Ibuprofen (alternating), or if severe pain occurs these will serve as additional medication You may resume your regularly scheduled medications (unless otherwise directed) If you have a fracture or a surgery that involves placing hardware (screws, plates, joint replacement), avoid the routine use of NSAIDs for about 6 months if possible (due to a risk of delayed bone healing). If any side effects or adverse reactions occur, discontinue the medication and contact your doctor. Review the patient drug information that is provided before you take any medication Ambulation and Activity: You are advised to go directly home from the hospital Use assistance device with either crutches, walker, or knee scooter We recommend knee scooter if possible, you can also obtain these on [employer] for rather affordable and quickly obtainable. You may not put weight on the operated foot. Avoid stairs. Do not lift or move heavy objects Do not drive until cleared by your physician Bandage and Wound Care Instructions: Keep bandage clean and dry Do NOT remove dressing/ splint DO NOT get wet Please use shower cover around leg if you do shower so that dressing does not get wet Do not shower or bathe the operative extremity Do not remove the bandage (unless otherwise directed) Do not attempt to put anything between the cast or dressing and your skin, some itching is normal. Ice and Elevation: Elevate operative extremity as much as possible to reduce swelling and discomfort. Elevate with 2 pillows at or above the level of the heart for the first 72 hours. This is important for post operative swelling and pain Ice: Apply Hospital dispensed insulated ice bag over the bandage 20 minutes of every hour while awake for the first 72 hours. You may ice behind the knee as well. Special Instructions: Call your doctor immediately if you develop any of the following. Fever over 100.4 degrees Fahrenheit by mouth - take your temperature daily until your first follow up visit. Pain not relieved by medication ordered Swelling, increased redness, warmth, or hardness around operative area. Numb, tingling or cold toes. Toe(s) become white or bluish Bandage becomes wet, soiled, or blood soaked (small amount of bleeding may be normal) Increased or progressive drainage from surgical area. Follow up instructions: You will need to follow up with Vic Littlejohn DPM within 7-10 days post operatively Call when you get home to schedule or confirm your appointment. Call your [facility] office if you have any questions or concerns. documented in this encounter [facility] 12-04-2024 History of Present illness Narrative Nerve block completed in pre-op by Dr Matamoros, patient tolerated procedure well. Patient on monitor and stable. Will continue to monitor patient. documented in this encounter [facility] 11-27-2024 History of Present illness Narrative Associated Problem(s): RUQ pain Frequent pain and possibly related to endometriosis. Labs normal. Associated Problem(s): Endometriosis Increased pain and follow with director of sustainable design. Images from the original note were not included. Subjective Patient ID: Urszula Bullard is a 19 y.o. female who presents for Abdominal Pain (Right sided up abdominal pain). Continues to have pain in RUQ for several months. Constant pain and worse with movement. Pain with twisting and reaching. Pain with palpation. No GI symptoms and not worse after eating. Prior gallbladder removal but no change in symptoms. Surgeon noted endometriosis on outside of uterus and around liver. Mom and grandma with history of severe endometriosis. On daily OCP and normal periods. No heavy bleeding or cramping. Not back to director of sustainable design. Review of Systems Respiratory: Negative for cough, [...] Assessment/Plan Problem List Items Addressed This Visit RUQ pain - Primary Frequent pain and possibly related to endometriosis. Labs normal. Endometriosis Increased pain and follow with director of sustainable design. documented in this encounter [facility] 10-07-2024 History of Present illness Narrative Associated Problem(s): Seasonal allergic rhinitis due to pollen Symptoms controlled with medication and continue. Associated Problem(s): RUQ pain Frequent pain and possibly related to endometriosis. Check labs. Associated Problem(s): Mild intermittent asthma without complication (CMS/HCC) Symptoms controlled with flovent and continue. Use albuterol PRN. Associated Problem(s): Migraine without aura and without status migrainosus, not intractable (CMS/HCC) HENRY controlled with topamax and continue. Use maxalt PRN. Associated Problem(s): Endometriosis Increased pain and follow with director of sustainable design. Associated Problem(s): ROXANA (generalized anxiety disorder) (CMS/HCC) Symptoms stable and monitor. Images from the original note were not included. Subjective Patient ID: Urszula Bullard is a 19 y.o. female who presents for Follow-up (3 m), Dizziness (Dizzy/lightheaded onging for about a month), and Flank Pain (Right side). Follow up anxiety, migraines, asthma, and allergies. Anxiety stable. Not as stressed out or overwhelmed. Not as nervous or worry as much. Not as king or irritable. Migraines stable and HENRY 2-3 times a month. Throbbing pain in entire head associated with photophobia, phonophobia and nausea. Uses maxalt PRN and helps when needed. Asthma stable. No SOB or cough with exertion. No nocturnal cough or SOB. Using albuterol few times a month and helps. Allergies controlled with medication. No congestion or rhinorrhea. No HENRY or sinus pressure. Ears not plugged or popping. C/o pain in RUQ for several months. Constant pain and worse with movement. Pain with twisting and reaching. No change in activity or injury. No GI symptoms and not worse after eating. Concerned because when had gallbladder out surgeon noted endometriosis on outside of uterus. Mom and grandma with history of severe endometriosis. On daily OCP. Review of Systems Respiratory: Negative for cough, [...] Assessment/Plan Problem List Items Addressed This Visit Mild intermittent asthma without complication (CMS/HCC) Symptoms controlled with flovent and continue. Use albuterol PRN. Migraine without aura and without status migrainosus, not intractable (CMS/HCC) HENRY controlled with topamax and continue. Use maxalt PRN. Seasonal allergic rhinitis due to pollen Symptoms controlled with medication and continue. RUQ pain Frequent pain and possibly related to endometriosis. Check labs. Relevant Orders Basic metabolic panel CBC and differential Hepatic function panel ROXANA (generalized anxiety disorder) (CMS/HCC) - Primary Symptoms stable and monitor. Endometriosis Increased pain and follow with director of sustainable design. documented in this encounter [facility] 07-16-2024 History of Present illness Narrative Associated Problem(s): ROXANA (generalized anxiety disorder) (CMS/HCC) Severe anxiety and appears situational. Will complete [...] Thought racing and hard to clear mind. King, irritable and snapping at others. Easily upset [...] Addressed This Visit ROXANA (generalized anxiety disorder) ([facility]) - Primary Severe anxiety and appears situational. Will complete paperwork to get single room and to be able to take exam online. documented in this encounter [facility] 05-23-2024 History of Present illness Narrative Associated [...] 250 MG tablet documented in this encounter [facility] 01-17-2023 Note HNO ID: [id number] Author: Tiara Espinoza MD Service: ? Author [...] over after being seen by an outside svp research & ebusiness operations with concerns for vocal cord movement issues. [...] pneumatic otoscopy. ORAL (more content not included)... [facility] 01-16-2023 Note HNO ID: [id number] Author: Corin Burroughs MD Service: ? Author Type: Physician Type: Progress Notes Filed: 01/17/2023 12:55 PM Note Text: Dear Dr. Durbin: We had the pleasure of seeing your patient Urszula Trotter in Pediatric Neurology at [facility] on January 17, 2023. As you [...] swelling SOCIAL HISTORY Home: lives with ROBERTO, MGNabil, brother 2007; Bruno moving out later this [...] and do all (more content not included)... [facility] 08-19-2022 Evaluation note Encounter Date Diagnosis [...] treatment plan. Patient left in stable condition [facility] Other 12-16-2021 Evaluation note* Encounter Date Diagnosis [...] Patient care instructions given in writting by [facility] document. Additional time spent conducting pre-visit phone call, screening for symptoms, instructions on social distancing, application and removal of PPE, and cleaning of examination room, equipment and supplies was preformed. Patient education given for testing methodology and results. Patient care instructions given in writting by [facility] document. [employer] Other Evaluation note* Diagnosis Onset Date Resolution Status Status post tonsillectomy and adenoidectomy noneactive [facility] Work Phone: Evaluation noteNo assessment information available [facility] Work Phone: Evaluation note* Diagnosis Onset Date Resolution Status Insect bite acute Right wrist sprain acute [facility] Work Phone: Evaluation note* Diagnosis Annual physical [...] specified organisms- Primary documented in this encounter [facility] HealthcareEvaluation note* Diagnosis Annual physical exam- Primary [...] anxiety disorder documented in this encounter [facility]* Diagnosis Annual physical exam- Primary Routine general medical examination at a [facility] care facility Arthralgia of multiple joints- Primary [...] anxiety disorder) (CMS/HCC)- Primary Generalized anxiety disorder ROXANA (generalized anxiety disorder) (CMS/HCC)- Primary Generalized anxiety disorder Migraine without aura and without status migrainosus, not intractable (CMS/HCC) Mild intermittent asthma without complication (CMS/HCC) Seasonal allergic rhinitis due to pollen RUQ pain Abdominal pain, right upper quadrant Endometriosis Endometriosis, site unspecified documented in this encounter [facility] HealthcareEvaluation note* Diagnosis Annual physical exam- Primary Routine general medical examination at a [facility] care facility Arthralgia of multiple joints- Primary [...] anxiety disorder) (CMS/HCC)- Primary Generalized anxiety disorder ROXANA (generalized anxiety disorder) (CMS/HCC)- Primary Generalized anxiety disorder Migraine without aura and without status migrainosus, not intractable (CMS/HCC) Mild intermittent asthma without complication ([facility]/HCC) Seasonal allergic rhinitis due to pollen RUQ pain Abdominal pain, right upper quadrant Endometriosis Endometriosis, site unspecified RUQ pain- Primary Abdominal pain, right upper quadrant Endometriosis Endometriosis, site unspecified documented in this encounter [facility]* Diagnosis Annual physical exam- Primary Routine general medical examination at a [facility] care facility Arthralgia of multiple joints- Primary Pain in joint, multiple sites Acute right ankle pain Migraine without aura and without status migrainosus, not intractable Mild intermittent asthma without complication (HCC) Seasonal allergic rhinitis due to pollen Right upper quadrant abdominal pain- Primary Gastroesophageal reflux disease without esophagitis Esophageal reflux Migraine without aura and without status migrainosus, not intractable- Primary Mild intermittent asthma without complication (HCC) Seasonal allergic rhinitis due to pollen Biliary dyskinesia Other specified disorder of gallbladder Urticaria, unspecified ROXANA (generalized anxiety disorder)- Primary Generalized anxiety disorder ROXANA (generalized anxiety disorder)- Primary Generalized anxiety disorder Migraine without aura and without status migrainosus, not intractable Mild intermittent asthma without complication (HCC) Seasonal allergic rhinitis due to pollen RUQ pain Abdominal pain, right upper quadrant Endometriosis Endometriosis, site unspecified RUQ pain- Primary Abdominal pain, right upper quadrant Endometriosis Endometriosis, site unspecified Palpitation- Primary Palpitations Migraine without aura and without status migrainosus, not intractable ROXANA (generalized anxiety disorder) Generalized anxiety disorder Mild intermittent asthma without complication (HCC) Seasonal allergic rhinitis due to pollen documented in this encounter [facility] Narrative - Reported* Type Description Date Medical History asthma Medical History Seasonal allergic rh initis, unspecified chronicity, unspecified trigger Surgical History tonsillectomy and adenoidectomy Surgical History dental work Hospitalization History No know Hospitalization history [facility] Other History general Narrative - Reported* Type Description Date Medical History asthma Medical History Seasonal allergic rh initis, unspecified chronicity, unspecified trigger Surgical History tonsillectomy and adenoidectomy Surgical History dental work Hospitalization History No Hospitalization histo ry information [facility] Other Reason for visit Narrative* Auth/Cert Specialty Diagnoses / Procedures Referred By Dennis t Referred To Contact Diagnoses Posterior tibial tendonitis, right Procedures NE OSTEOTOMY CALCANEUS W/WO INTERNAL FIXATION NE GASTROCNEMIUS RECESSION NE PARTIAL EXCISION BONE TALUS/CALCANEUS NE TR/TRNSPL 1 TDN W/MUSC REDIRION/REROUTING DP NE DIAGNOSTIC BONE MARROW ASPIRATIONS RIGHT CALCANEOUS OSTEOTOMY RIGHT GASTROCNEMIUS RECESSION RIGHT GASTROCNEMIUS RECESSION RIGHT FDL TRANSFER BMA RIGHT FDL TRANSFER Vic Canales, DPSamantha [id number] [place] [id number] Phone: tel: fax: [facility] [address] [place] [address] Referral ID Status Reason Start Date Expiration Date Visits Re quested Visits Authorized [id number] 1 1 [facility] Summary Purpose Family History Relationship Condition Age [...] CREATED AUTHOR AUTHOR'S ORGANIZ ATION 09/24/2022 [facility] DATE CREATED AUTHOR AUTHOR'S ORGANIZ ATION 01/21/2023 [facility] DATE CREATED AUTHOR AUTHOR'S ORGANIZ ATION 03/20/2024 [facility] DATE CREATED AUTHOR AUTHOR'S ORGANIZ ATION 11/14/2024 [facility] DATE CREATED AUTHOR AUTHOR'S ORGANIZ ATION 01/06/2025 [facility] DATE CREATED AUTHOR AUTHOR'S ORGANIZ ATION 03/01/2025 [facility] EPIC REASON FOR VISIT (unrecogniz ed section and content) Reason Comments Follow-up Cough/ congestion ea r pain Reason Comments Anxiety Reason Comments Follow-up 3 m Dizziness Dizzy/lightheaded on ging for about a month Flank Pain Right side Reason Comments Abdominal Pain Right sided up abdom inal pain Reason Comments Follow-up 3m f/u Dizziness With High heart rate . Care Teams (unrecognized sec tion and content) [...] March 12, 2024 End: March 12, 2024 Medical Oncologist Relationship Specialty Start Date End Date Alberto Enamorado MD [address] [place] [phone] PCP - General Family Medicine 08/25/23 Alberto Enamorado MD [address] [place] [phone] PCP - [employer] [employer] 01/06/24 Medical Oncologist Relationship Specialty Start Date End Date Alberto Enamorado MD [address] [place] [phone] PCP - General Family Medicine 08/25/23 Alberto Enamorado MD [address] [place] [phone] PCP - [employer] [employer] 01/06/24 Medical Oncologist Relationship Specialty Start Date End Date Alberto Enamorado MD [address] [place] [phone] PCP - General Family Medicine 08/25/23 Alberto Enamorado MD [address] [place] [phone] PCP - [facility] [employer] 01/06/24 Medical Oncologist Relationship Specialty Start Date End Date Alberto Enamorado MD [address] [place] [phone] PCP - General Family Medicine 08/25/23 Alberto Enamorado MD [address] [place] [phone] PCP - [facility] 01/06/24 Medical Oncologist Relationship Specialty Start Date End Date Alberto Enamorado MD [address] [place] [phone] PCP - General Family Medicine 08/25/23 Medical Oncologist Relationship Specialty Start Date End Date Alberto Enamorado MD [address] [place] [phone] PCP - General Family Medicine 08/25/23 Medical Oncologist Relationship Specialty Start Date End Date Alberto Enamorado MD [address] [place] [phone] PCP - General Family Medicine 08/25/23 Medical Oncologist Relationship Specialty Start Date End Date Alberto Enamorado MD [address] [place] [phone] PCP - General Family Medicine 08/25/23 Medical Oncologist Relationship Specialty Start Date End Date Alberto Enamorado MD [address] [place] [phone] PCP - General Family Medicine 08/25/23 Medical Oncologist Relationship Specialty Start Date End Date Alberto Enamorado MD [address] [place] [phone] PCP - [facility] Family Medicine 08/25/23 Medical Oncologist Relationship Specialty Start Date End Date Alberto Enamorado MD PCP - General Family Medicine 11/09/18 Medical Oncologist Relationship Specialty Start Date End Date Alberto Enamorado MD [address] [place] [phone] PCP - [facility] 08/25/23 Medical Oncologist Relationship Specialty Start Date End Date Alberto Enamorado MD [address] [place] [phone] PCP - [facility] 08/25/23 Medical Oncologist Relationship Specialty Start Date End Date Alberto Enamorado MD [address] [place] [phone] PCP - General [facility] Medicine 08/25/23 Goals (unrecognized section and content) Goals may be documented in a n alternate section Scheduled Active and Recently Administ ered Medications (unrecognized section and content) Medication Order 12/02/2024 12/03/2024 12/04/2024 aprepitant (EMEND) capsule 40 mg (COMPLETED) 40 mg, Oral, ONCE, 1 dose, On Mon12/04/24 at 0945, Pre-op (day of surgery) 0955 (Given - Provid er: Khris Winchester RN) clindamycin (CLEOCIN) 600 mg in dextrose 5 % 50 mL IVPB (COMPLETED) 600 mg, IntraVENous, Once, 1 dose, On Mon12/04/24 at 1045, Antimicrobial Indications: Surgical Prophylaxis, Pre-op (day of surgery), STAT 1114 (Given - Provid er: Saturnino Bergman, VENDER - HEATER ROOM HELPER) midazolam PF (VERSED) injection 4 mg (COMPLETED) 4 mg, IntraVENous, ONCE, 1 dose, On Mon12/04/24 at 0945, STAT, Pre-op (day of surgery) 1013 (Given - Provid er: Khris Winchester RN) promethazine (PHENERGAN) tablet 12.5 mg (COMPLETED) 12.5 mg, Oral, ONCE, 1 dose, On Mon12/04/24 at 0945, Pre-op (day of surgery) 0955 (Given - Provid er: Khris Winchester RN) sodium chloride flush 0.9 % injection 5-40 mL 5-40 mL, IntraVENous, EVERY 12 HOURS SCHEDULED (2 times per day), First dose on Mon12/04/24 at 2100, Until Discontinued, For Line Patency: Peripheral IV = 5 mL; Midline or Central Line = 10 mL/lumen. If following IV push medication, administer flush at same rate as the IV push. Flush volume is determined by type of infusion therapy being given. For non-viscous solutions use: Peripheral IV = 5 mL Midline or Central Line = 10 mL/lumen For viscous solutions (i.e. blood components, parenteral nutrition, contrast media, or after obtaining blood sample) use: Peripheral IV = 10 mL Midline or Central Line = 20 mL/lumen, PACU only 2100 (Due) sodium chloride flush 0.9 % injection 5-40 mL 5-40 mL, IntraVENous, EVERY 12 HOURS SCHEDULED (2 times per day), First dose on Mon12/04/24 at 0945, Until Discontinued, For Line Patency: Peripheral IV = 5 mL; Midline or Central Line = 10 mL/lumen. If following IV push medication, administer flush at same rate as the IV push. Flush volume is determined by type of infusion therapy being given. For non-viscous solutions use: Peripheral IV = 5 mL Midline or Central Line = 10 mL/lumen For viscous solutions (i.e. blood components, parenteral nutrition, contrast media, or after obtaining blood sample) use: Peripheral IV = 10 mL Midline or Central Line = 20 mL/lumen, Pre-op (day of surgery) 0945 (Due)2100 (Due) Continuous Medication Order 12/02/2024 12/03/2024 12/04/2024 0.9 % sodium chloride infusion IntraVENous, at 125 mL/hr, CONTINUOUS, Starting on Mon12/04/24 at 0945, Pre-op (day of surgery) 0945 (Due) lactated ringers infusion IntraVENous, at 125 mL/hr, CONTINUOUS, Starting on Mon12/04/24 at 0945, Pre-op (day of surgery) 0949 (New Bag - Prov ider: Khris Winchester RN)1106 (NoRateChange - Provider: Saturnino Bergman APRN - HEATER ROOM HELPER)1303 (New Bag - Provider: Saturnino Bergman APRN - HEATER ROOM HELPER)1420 (Stopped - Provider: Selena Castro RN) PRN Medication Order 12/02/2024 12/03/2024 12/04/2024 0.9 % sodium chloride infusion IntraVENous, at 5-250 mL/hr, PRN, if patient receiving piggyback infusions and maintenance fluids are not ordered OR KVO fluids to protect IV site / prevent frequent line interruptions/ long duration, Starting on Mon12/04/24 at 1245, For piggyback infusion, administer at same rate as piggyback for a total of 25 mL. Enter 25 mL into dose field and piggyback rate into rate field of order. If piggyback is infusing at a rate less than 100 mL/hr, enter 25 mL into dose field and 100 mL/hr into rate field of order. For KVO fluids, enter rate of 20 mL/hr or less into rate field of order., PACU only 0.9 % sodium chloride infusion IntraVENous, at 5-250 mL/hr, PRN, if patient receiving piggyback infusions and maintenance fluids are not ordered OR KVO fluids to protect IV site / prevent frequent line interruptions/ long duration, Starting on Mon12/04/24 at 0921, For piggyback infusion, administer at same rate as piggyback for a total of 25 mL. Enter 25 mL into dose field and piggyback rate into rate field of order. If piggyback is infusing at a rate less than 100 mL/hr, enter 25 mL into dose field and 100 mL/hr into rate field of order. For KVO fluids, enter rate of 20 mL/hr or less into rate field of order., Pre-op (day of surgery) fentaNYL (SUBLIMAZE) injection 25 mcg 25 mcg, IntraVENous, EVERY 5 MIN PRN, 4 doses, Starting on Mon12/04/24 at 1245, Until Discontinued, Pain Moderate (4-6), allowed for higher pain score per patient request, Phase I - Initial therapy for moderate pain., PACU only haloperidol lactate (HALDOL) injection 1 mg 1 mg, IntraVENous, ONCE PRN, 1 dose, Starting on Mon12/04/24 at 1245, Until Discontinued, Agitation, nausea, Secondary antiemetic therapy., PACU only HYDROmorphone HCl PF (DILAUDID) injection 0.5 mg 0.5 mg, IntraVENous, EVERY 5 MIN PRN, 4 doses, Starting on Mon12/04/24 at 1245, Until Discontinued, Pain Severe (7-10), Phase I - Initial therapy for severe pain., PACU only lidocaine PF 1 % injection 1 mL 1 mL, IntraDERmal, ONCE PRN, 1 dose, Starting on Mon12/04/24 at 0921, Until Discontinued, IV start, Pre-op (day of surgery) metoclopramide (REGLAN) injection 10 mg 10 mg, IntraVENous, ONCE PRN, 1 dose, Starting on Mon12/04/24 at 1245, Until Discontinued, Nausea, Initial antiemetic therapy. Do not give if hx parkinsons disorder or extrapyramidal symptoms, PACU only naloxone 0.4 mg in 10 mL sodium chloride syringe IntraVENous, PRN, Opioid Reversal, Starting on Mon12/04/24 at 1245, PRN if respiratory rate is less than 6/min and patient is difficult to arouse then notify physician STAT. Mix 9 mL of sodium chloride 0.9% with 0.4 mg (1 mL) of naloxone (NARCAN) in 10 mL syringe. (Note: dilution is 0.04 mg/mL) Give 0.08 mg (2 mL of special dilution), slow IV push, repeat up to 0.4 mg (10 mL) or until patient is responsive to physical stimulation and respiratory rate is equal to or greater than 6 breaths/min. Continue to observe, if no response within 3 minutes of administration of 0.4 mg (10 mL) total, repeat dose (0.4 mg as administered previously). Concentration 0.04 mg/mL, PACU only oxyCODONE (ROXICODONE) immediate release tablet 5 mg (COMPLETED) 5 mg, Oral, ONCE PRN, 1 dose, Starting on Mon12/04/24 at 1245, Until Mon12/04/24 at 1409, Pain Moderate (4-6), allowed for higher pain score per patient request, Pain Severe (7-10), PHASE II, PACU only 1409 (Given - Provid er: Selena Castro RN) sodium chloride flush 0.9 % injection 5-40 mL 5-40 mL, IntraVENous, PRN, Starting on Mon12/04/24 at 1245, Until Discontinued, Line Care, After every IV line use, For Line Patency: Peripheral IV = 5 mL; Midline or Central Line = 10 mL/lumen. If following IV push medication, administer flush at same rate as the IV push. Flush volume is determined by type of infusion therapy being given. For non-viscous solutions use: Peripheral IV = 5 mL Midline or Central Line = 10 mL/lumen For viscous solutions (i.e. blood components, parenteral nutrition, contrast media, or after obtaining blood sample) use: Peripheral IV = 10 mL Midline or Central Line = 20 mL/lumen, PACU only sodium chloride flush 0.9 % injection 5-40 mL 5-40 mL, IntraVENous, PRN, Starting on Mon12/04/24 at 0921, Until Discontinued, Line Care, After every IV line use, For Line Patency: Peripheral IV = 5 mL; Midline or Central Line = 10 mL/lumen. If following IV push medication, administer flush at same rate as the IV push. Flush volume is determined by type of infusion therapy being given. For non-viscous solutions use: Peripheral IV = 5 mL Midline or Central Line = 10 mL/lumen For viscous solutions (i.e. blood components, parenteral nutrition, contrast media, or after obtaining blood sample) use: Peripheral IV = 10 mL Midline or Central Line = 20 mL/lumen, Pre-op (day of surgery) FOR RECORDS PERTAINING TO PATIENTS WHO ARE [...] BE BASED ON THE PRIMARY CLINICAL RECORDS. [facility]. provides no warranty or guarantee of the accuracy or completeness of information in this document.
== END 2025-03-26 14:13 | disposition home or self-care (01) ==
LOC: RAD 14:13
PROVIDERS: PCP Family Medicine; Visit Provider Podiatrist Foot & Ankle Surgery
DX: M25.571 Pain in right ankle and joints of right foot (principal)
CPT/HCPCS: 73610

== ENCOUNTER 2025-07-17 10:58 | Outpatient (OUT) | payer BC, SELFPAY ==
--- NOTE | 2025-07-17 11:00 | CA_ITS ---
Patient Name: KOLBY WHITTINGTON MR#: [id number] : 2005 Exam Date: 07/17/2025 Ordering Doctor: DEE LUO ECHOCARDIOGRAM REPORT PROCEDURE: CA ECHO DOPPLER COMPLETE INDICATIONS: Palpitation, dyspnea on exertion COMPARISON: None. DESCRIPTION: COMPLETE ECHOCARDIOGRAM Real-time transthoracic echocardiography with 2D, M-mode, spectral and color flow Doppler performed. QUALITY: Technical quality was good. LEFT VENTRICLE: Normal chamber size. Normal left ventricular wall thickness. Estimated left ventricular ejection fraction is 60-65%. LV EF: Normal left ventricular ejection fraction, (>55%). DIASTOLIC: Normal diastolic function. ATRIAL SEPTUM: Visually appears intact. LEFT ATRIUM: Normal chamber size. RIGHT ATRIUM: Normal chamber size. RIGHT VENTRICLE: Normal chamber size. Normal right ventricular systolic function. TRICUSPID VALVE: Normal mobility and thickness. No stenosis with trivial regurgitation. Unable to assess right-sided pressure due to the lack of measurable tricuspid regurgitation. MITRAL VALVE: Normal mobility and thickness. No mitral valve prolapse. No evidence of mitral valve stenosis. There is no mitral annular calcification. Trivial mitral regurgitation. AORTIC VALVE: Normal trileaflet appearance. No visible sclerosis. Normal leaflet mobility. No evidence of aortic valve stenosis. No aortic regurgitation. AORTIC ROOT: Normal diameter and appearance, measuring 2.8 cm. PULMONIC VALVE: Normal thickness and mobility. No stenosis. Mild regurgitation. PERICARDIUM: No evidence of pericardial effusion. IVC: Collapses with inspiration. PLEURA: CONCLUSION: 1. Normal ventricular size and systolic function. Estimated LVEF is 60-65%. 2. Normal diastolic function. 3. No significant valvular dysfunction. 4. Unable to assess right-sided pressures due to lack of measurable tricuspid regurgitation. Adult Echocardiography Procedure Report Left Ventricle LVEDD (3.7 - 5.6 cm): 4.63 cm LVESD (2.2 - 4.0 cm): 3.01 cm LVIVS thickness (0.6 - 1.2 cm): 0.74 cm LVPW thickness (0.5 - 1.0 cm): 0.88 cm e': 0.19 m/s E - e': 5.32 LVOT Max Gradient: 3.56 mm[Hg] LVOT Area (cm2): 0.94 m/s Peak Velocity (LVOT): 0.94 m/s Mean Velocity (LVOT): 0.63 m/s LVOT Diameter 2.11 cm Left Ventricular Ejection Fraction: 60-65 % Left Atrium LA Volume Index (2D A2C): 18.54 ml/m2 Left Atrium Systolic Dimension: 2.98 cm Mitral Valve MV E to A Ratio: 1.55 Mitral Valve A-Wave Peak Velocity: 0.64 m/s Mitral Valve E-Wave Peak Velocity: 0.99 m/s Right Ventricle Aorta AO Root Diam: 2.85 cm Aortic Valve AoV Area (Peak Braeden): 2.94 cm2, 2.94 cm2 AoV Area (VTI): 2.44 cm2, 2.44 cm2 Peak Velocity(Antegrade Flow): 1.12 m/s Peak Gradient(Antegrade Flow): 5.01 mm[Hg] Mean Velocity(Antegrade Flow): 0.78 m/s Mean Gradient(Antegrade Flow): 2.78 mm[Hg] Velocity Time Integral: 25.42 cm Tricuspid Valve Pulmonic Valve Mean Gradient: 2.69 mm[Hg] Mean Velocity: 0.76 m/s Peak Velocity: 1.13 m/s Peak Gradient: 5.13 mm[Hg] Right Atrium Right Atrium Systolic Pressure: 25.59 ml, 25.59 ml Dictated by: Andrew Murray M.D. on 07/17/2025 at 18:29 Approved by: Andrew Murray M.D. on 07/17/2025 at 18:32
--- OUTSIDE RECORDS SUMMARY | 2025-07-17 11:11 | XMS_ITS | Continuity of Care Document ---
Author Organization [facility] Address [address] [place] [address] Phone Care Team Providers Care Wellness Nurse Name Role Phone Alberto Reid MD Primary Care Provider Alberto Reid MD Attending Provider Care Teams Patient Care Team Team Status: Active Member Role/Relationship Status Dates Alberto Reid MD Primary Care Provider Active Visit Care Team Team Status: Inactive Member Role/Relationship Status Dates Alberto Reid MD Primary Care Provider Active S tart: May 26, 2025 End: May 26, 2025[facility] SPENCER Reidttending ProviderActiveStart: May 26, 2025 End: May 26, 2025 Chief Complaint and Reason for Visit Chief Complaint Admit Date Established Patient May 26, 2025 9 :30am Reason for Visit Admit Date Autonomic dysfunction May 26, 2025 9:30am ROXANA (generalized anxiety disorder) Octob er 2024 9:30am Mild intermittent asthma without complic ation May 26, 2025 9:30am Seasonal allergic rhinitis due to pollen May 26, 2025 9:30am Reason for Referral Type Reason(s) Provider Provider Contact Information P rovider Address Start Date Disorder of autonomic nervous system DivcmrziokjrM75.9 - Disorder of the autonomic nervous system, unspecified,R00.2 [facility] Allergies, Adverse Reactions, Alerts Allergen Type Severity Reaction Last Updated Verified Status Comments penicillin G Allergy Severe Difficulty Breathing May 26, 2025 9:07am Yes Active Hives, Swelling amoxicillin Allergy Unknown hives and swelling May 26, 2025 9:07am Yes Active cephalexinAllergyUnknownhivesOct2024 9:07amYesActiveCephalosporins AllergyUnknownhives, swellingMay 26, 2025 9:07amYesActivevancomycinAllergy UnknownRashOctober 2024 9:07amYesActivealbuterolAdverse ReactionUnknown Unknown ReactionOctober 2024 9:07amYesActive Social History Smoking Status Status Start Date End Date Date of Observa tion Never smoked tobacco (finding) October 01, 2023 2:25pm Observation Status Observation Response Date of Response Legal Sex [facility] (finding) [facility] 2005 Family History Relationship Condition Age at Onset Recorded Date/T ruslan grandparent Malignant neoplasm Unknown Problems Active Problems Problem Diagnosis/Recorded Date Onset Date Stat us RUQ pain May 21, 2025 2:15pm Unknown Ac tive ROXANA (generalized anxiety disorder) May 21, 2025 2:14pm Unknown Active Migraine without aura and wi thout status migrainosus, not intractable May 21, 2025 2:14pm Unknown Activ e Autonomic dysfunction May 26, 2025 9:33am Unknow n Active Mild intermittent asthma wit hout complication May 21, 2025 2:14pm Unknown Active Palpitation May 21, 2025 2:15pm Unknown Ac tive Arthralgia of multiple joints May 21, 2025 2:13p m Unknown Active Seasonal allergic rhinitis due to pollen May 21, 2025 2:15pm Unknown Active Gastroesophageal reflux dise ase without esophagitis May 21, 2025 2:14pm Unknown Active Biliary dyskinesia May 21, 2025 2:13pm Unknown Active Endometriosis May 21, 2025 2:14pm Unknown A ctive Inactive/Resolved Problems Problem Diagnosis/Recorded Date Onset Date Stat us Right wrist pain February 23, 2024 3:45pm Unknown R esolved Insect bite February 23, 2024 4:56pm Unknown Resol tano Asthma October 01, 2023 2:23pm Unknown R esolved Right wrist sprain February 23, 2024 4:18pm Unknown Resolved Medications Medication Status Dose Units Route Directions Qty Days Refills S tart Date Stop Date End Date Reason(s) Instructions Adherence Levofloxacin 750 mg tablet Discontinued 750 MG PO Daily 7 7 0 April 09, 2025 11:00pm May 08, 2025 1:39pmL Norgest/E.Estradiol-E.Estrad (Simpesse) 0.15 mg-30 mcg (84)/10 mcg (7) tablets,dose pack,3 tkxadUhahtl7AKTBTNpdad1633Xsywfruhu 2024 12:44pmUnknownLevofloxacin 750 mg jlkjqlTfpoma185IUEKSwstg929Dpdlhte 2024 1:39pmUnknownRizatriptan (Maxalt-[facility]) 10 mg tablet,frmrvhuqvakcgsWckudn6ZZ .EEDRPEL30Nzrnxhwp 2024 9:43amtake 1 tab at onset of headache; if no relief may repeat 1 tab after at least 2 hrs; max = 3 tabs/24 hr POUnknownTopiramate (Topamax) 100 mg syxptwRqvtjy053YKBH.three timesFebruary 2023 12:00am UnknownRizatriptan (Maxalt[facility]) 10 mg tablet,kvpqrmdrceswhlXfmdwuvomyfx5NZ .COMPLEXFebruary 2023 12:00amNovember 2024 9:43amtake 1 tab at onset of headache; if no relief may repeat 1 tab after at least 2 hrs; max = 3 tabs/24 hr SHANE Norgest/E.Estradiol-E.Estrad (Simpesse) 0.15 mg-30 mcg (84)/10 mcg (7) tablets,dose pack,3 nhyxmEghpqeifamzj0GWCMAPdvfqHxwsgzfx 2023 12:00am April 29, 2025 12:44pmAlbuterol Sulfate 90 mcg/actuation aerosol powdr breath esrpzrplkXtmkqn1AKCESJSACZLBGAcyyh 4 hours as neededFebruary 2023 12:00amUnknownLevalbuterol Tartrate 45 mcg/actuation HFA aerosol inhalerActive2 INHINHALATIONEvery 6 hoursFebruary 2023 12:00amUnknownDextromethorphan- Guaifenesin (Mucinex Dm) 30-600 mg tablet extended release 12 xvUabxzxlxuffm6DYE POEvery 12 hoursFebruary 2023 12:00amJuly 2023 3:21pmIbuprofen 200 mg tnazhqgHtnqkksprzvt834OYTHSamzl 6 hours as neededFebruary 2023 12:00am February 23, 2024 3:22pmAcetaminophen 500 mg wjohxnaRlmwsmlpwsqj1438RHNTNxyqj 6 hours as neededFebruary 2023 12:00amJuly 2023 3:21pmPyrilamine- Dextromethorphan (Dundas Dm) 7.5-7.5 mg/5 mL rfswjxGqvgnhzvknzr78PYJBRioup 8 wxwmr66883Fkgzodoz 2023 12:00amJuly 2023 3:22pmAlbuterol Sulfate 2.5 mg /3 mL (0.083 %) solution for nebulizationActive2.6KSTTNAOIGZIDB3S as needed for shortness of breath or ehhwbtcy8948Qpgvqbzr 2023 12:00amUnknown Budesonide (Pulmicort) 0.5 mg/2 mL suspension for nebulizationDiscontinued0.5MG KBTKECPGWPKwmkb589Aawoppde 2023 12:00amJuly 2023 3:21pmPantoprazole 40 mg tablet,delayed release (DR/EC)ActiveMGPOJuly 2023 11:00pmUnknown Hydroxyzine Hcl 25 mg xyhonqBtkofc42MZXLHksvs daily as neededJuly 2023 11:00pmUnknownFludrocortisone 0.1 mg tabletActive0.2NQBSKbdhu133Xpiacvd 2024 11:00pmComplies with drug therapy Vital Signs Vital Reading Result Reference Range Collection Date/Time Height 67 [in_i] May 26, 2025 9:54xpPlxbpi83.48 [facility]Octn[facility] 2024 9:04amBody Temperature 97.1 [degF]97.6-99.0October 2024 9:04amHeart Uvns327 /sow33-214Kglnjlo 2024 9:04amRespiratory rate20 /ztq00-53Xuonjwl 2024 9:04amOxygen saturation by Pulse duqrkiic34 %95-100[facility] 2024 9:04amBP Jlnirhfy424 mm[Hg]100-140[facility] 2024 9:04amBP Tacspyhfw17 mm[Hg]60-100[facility] 2024 9:04amBMI (Body Mass Index)25.3 kg/b8EekoyjvMay 26, 2025 9:04amBody mass index (BMI) [Percentile] Per age and sex80.3 %Normal or healthy weight; 5th to 85th percentileMaynorton hospital 2024 9:04am Advance Directives Advance Directive Response Recorded Date/ Time Advance Directives No September 08, 2017 2:16pm Insurance Providers Guarantor Urszula L Juan Miguel Address [address] [place] [address] [address] [facility] [address]Bsuyrqm Info.Home Phone: Payer Group Member ID Coverage Type Subscriber Relationship to Subscriber Effective Date Expiration Date Gustavo LAMBERT/ROBERT [id number] Bullard Id: [id number] [id number] [facility] [address] [facility] [address] Home Phone: [employer] Id: [id number] A Steinberger Id: [id number] [address] [place] [address] [address] [facility] [address] Home Phone: Email: [email or web address] Encounters Encounter Location(s) Arrival/Admit Date Discharge/Departure Date Discharge/Departure Disposition Provider(s) Departed Physician/ Provider Office Visit -[facility] [place] May 26, 2025 9:30am May 26, 2025 10:28am Discharged to home care or self care (routine discharge) Alberto Reid MD Recent Diagnosis Onset Date Admit Date Autonomic dysfunction Unknown May 262024 9:30am ROXANA (generalized anxiety disorder) Unknown May 26, 2025 9:30am Mild intermittent asthma without complication Un known May 26, 2025 9:30am Seasonal allergic rhinitis due to pollen Unknown May 26, 2025 9:30am Assessments Diagnosis Onset Date Resolution Status Admit Date Autonomic dysfunction acuteMay 26, 2025 9:30amGAD (generalized anxiety disorder)acuteMay 26, 2025 9:30amMild intermittent asthma without complicationacuteMay 26, 2025 9:30amSeasonal allergic rhinitis due to pollenacuteOctober 2024 9:30am Plan of Treatment [facility] 20[facility] 9:35amHolter showed tachycardia and history suggestive POTS. Start florinef and increase water and salt intake. Refer to cardiology. Symptoms tolerable and use hydroxyzine PRN. Symptoms stable and continue inhalers. Use albuterol PRN. Increased congestion and resume flonase. Future Tests Future scheduled test information is unavailable Pending Tests Pending diagnostic test information is unavailable Future Visits Future appointment information is unavailable Future Procedures Future procedure information is unavailable Future Medications Future medication information is unavailable Patient Instructions Patient instructions are unavailable Hospital Discharge Instructions Ambulatory Orders* Referral to Cardiology Time Frame: 05/26/25, Location: None Selected
--- OUTSIDE RECORDS SUMMARY | 2025-07-17 11:18 | XMS_ITS | CCD ---
Author Organization [facility] CliniSyid Care Team Providers Care Dam Tender Assistant Name Role Phone JOANIE PAGE Referring Unavailable ALBERTO ENAMORADO Primary Care UnavailHaven Ortiz Unavailable FEI, DR ALBERTO Stroud Attending Unavailable SALTY, DR LAST Stevenson Consulting Unavailable NADERER, DR ALBERTO Stroud Admitting Unavailable NADERER, DR ALBERTO Stroud Primary Care Unavailable NADEREAdiel, DR ALBERTO Stroud Consulting Unavailable NADERER, DR ALBERTO Stroud Primary Care Unavailable NADERER, DR ALBERTO Storud Consulting Unavailable NADERER, DR ALBERTO Stroud Attending Unavailable NADERER, DR ALBERTO Stroud Admitting Unavailable AICHHOLZ, THOMAS BULLOCK Attending Unavailable AICHHOLZ, THOMAS BULLOCK Admitting Unavailable AICHHOLZ, ORACLE DRM CONSULTANT KOBE Consulting Unavailable NADERER, DR ALBERTO Stroud Primary Care Unavailable Iona Rosas Unavailable ABY VILLASEÑOR Referring Unavailable TIARA GALINDO Attending Unavailable ABY VILLASEÑOR Referring Unavailable CORIN BURROUGHS Attending Unavailable MD Alberto Enamorado Primary Care Provider CONCETTA German Attending Provider DO Lakhwinder Pyle Attending Provider [phone] Lakhwinder Pyle Attending Unavailable Lakhwinder Pyle Admitting Unavailable Selena German Admitting Unavailable Selena German Attending Unavailable Alberto Enamorado Primary Care Unavailable Alberto Enamorado MD Primary Care Provider [phone] Alberto Enamorado MD Unavailable Alberto Enamorado MD Primary Care Provider ALBERTO ENAMORADO Primary Care Unavailable ARELY SHAY Attending Unavailable FEI, ALBERTO Attending Unavailable ALBERTO ENAMORADO Attending Unavailable ALBERTO ENAMORADO Attending Unavailable LAKHWINDER PYLE Attending Unavailable LAKHWINDER PYLE Attending Unavailable ALBERTO ENAMORADO Attending Unavailable ALBERTO ENAMORADO Attending Unavailable ALBERTO ENAMORADO Primary Care Unavailable VIC HICKMAN Referring Unavailable ALBERTO ENAMORADO Primary Care Unavailable VIC HICKMAN Referring Unavailable Alberto Enamorado MD Primary Care Provider Alberto Enamorado MD Attending Provider Alberto Enamorado MD Primary Care Provider Alberto Enamorado MD Unavailable Allergies Allergy ClassificationReported Allergen(s)Allergy TypeDate of OnsetReaction(s) Facility (11 sources)Amoxicillin; Translations: [AMOXICILLIN]Drug Aknvqcw39-11-1737Jnylz [facility] Repository (7 sources)CephalexinDrug Avvilld41-44-5920zkomrGojuvpuuyACMC Healthcare System (2 sources)CephalasporinsPropensity to adverse reactionshives, swellingC[place] Live[facility] Other (1 source)AmoxicillinDrug Wdkmdqa96-79-1205[facility] Repository (10 sources)Cephalosporins (Antibiotic); Translations: [CEPHALOSPORINS]Drug allergy (disorder)49-25-7428TavwfcblEl[facility] (20 sources)Albuterol; Translations: [ALBUTEROL]Drug Iiwnypk21-15-2960Qzxoeog [facility] Repository (20 sources)Penicillins; Translations: [PENICILLINS]Propensity to adverse reactions to drug (disorder)64-11-2529Borfc, Shortness of breath, Swelling, Anaphylaxis, RashSelect [facility] (1 source)AmoxicillinDrug Zgodqmg72-27-6582KiehmvcceAv[facility] (1 source)CephalexinDrug Qqrgtrd49-70-2009FtiilfolqAvita [facility] (1 source)Cephalosporins (Antibiotic)Drug allergy (disorder)72-53-5464LgnwifpxvAvita Health System [facility] (20 sources)Cephalosporins (Antibiotic)Drug Ztteclpsqfk04-06-5568Nzjpy, Shortness of breath, SwellingNOPA Healthcare (1 source)LatexPropensity to adverse reactions to synt39-97-3012DszbeRlxBon [facility] (11 sources)Vancomycin; Translations: [VANCOMYCIN]Drug Qddwzhu84-00-4998Qgfs [facility] Repository (1 source)PenicillinDrug Tpzrdbw46-69-1831Fjeewspymu BreathingAvita Health System Galion HospitalComment on above:Hives, SwellingNEGATED: Highlighted row has been ruled out! (1 source)OtherPropensity to adverse djekbauxv40-18-8280Xzo [facility] CenterHydrocapsule [facility] Medications Current Medications MedicationDrug Class(es)DatesSig (Normalized)Sig (Original)[id number] 200 actuat albuterol 0.09 mg/actuat metered dose inhaler (20 sources)beta2-Adrenergic AgonistStart: 04-23-2024 End: 46-72-7778lmwf 2 puff(s) by mouth every four hours as neededalbuterol HFA 90 mcg/act inhaler Indications: Mild intermittent asthma without complication (CMS/HCC) INHALE 2 PUFFS BY MOUTH EVERY 4 HOURS NEEDED 18 g 3 04/23/2024 10/07/2024 DiscontinuedStart: 96-56-7578kals 2.5 mg by inhalation every eight hours as needed for wheezingStart: 22-85-4920Xmpba: 33-60-0716jmuy 2 puff(s) by inhalation every six hours as needed for wheezingalbuterol sulfate HFA (PROAIR HFA) 108 (90 Base) MCG/ACT inhaler Inhale 2 puffs into the lungs every 6 hours as needed for Wheezing 1 Inhaler 06/07/2019 ActiveProAir HFA Activeazithromycin 250 mg oral tablet (5 sources)Macrolide AntimicrobialStart: 10-25-2024 End: 52-66-8431lkgm 2 tablets by mouth once dailyazithromycin (Zithromax) 250 MG tablet Indications: Acute bronchitis due to other specified organisms 2 PO once a day on day #1, then 1 PO daily on days 2-5 6 tablet 10/25/2024 11/27/2024 DiscontinuedStart: 89-22-5623ipyh 2 tablets by mouth once dailyazithromycin (Zithromax) 250 MG tablet Indications: Acute bronchitis due to other specified organisms 2 PO once a day on day #1, then 1 PO daily on days 2-5 6 tablet 05/23/2024 Activebenzonatate 200 mg oral capsule (20 sources)Non-narcotic AntitussiveStart: 45-48-7521kead 1 capsule by mouth three times daily as needed for coughbenzonatate (Tessalon) 200 MG capsule Indications: Acute non-recurrent pansinusitis Take 1 capsule (200 mg) by mouth 3 (three) times a day as needed for cough Do not crush or chew. 20 capsule 1 04/05/2024 Activecalcium chloride 0.0014 meq/ml / potassium chloride 0.004 meq/ml / sodium chloride 0.103 meq/ml / sodium lactate 0.028 meq/ml injectable solution (1 source)Start: 56-44-6707HivtjVWLqik, at 125 mL/hr, CONTINUOUS, Starting on Mon12/04/24 at 0945, Pre-op (day of surgery)cetirizine hydrochloride 10 mg oral tablet (3 sources)Histamine-1 Receptor Antagonist End: 45-32-7373nfon 10 mg by mouth once dailycetirizine HCl (ZYRTEC CHILDRENS ALLERGY) 5 MG/5ML SYRP Take 10 mg by mouth daily 12/03/2024 Discontinued (LIST CLEANUP)cetirizine (ZYRTEC) 10 MG tablet Take 1 tablet by mouth as needed for Allergies ActiveZyrtec ActiveL Norgest/E.Estradiol-E.Estrad (20 sources)Progestin, Estrogen, Progestin-containing Intrauterine DeviceStart: 03-42-9363qugq 1 tablet by mouth once dailyStart: 76-08-1507dqld 1 tablet by mouth once dailyL norgest/e.estradiol-e.estrad (Simpesse) 0.15-0.03 &0.01 MG tablet tablet Indications: Irregular menstruation, unspecified Take 1 tablet by mouth Daily 91 tablet 3 03/26/2024 ActiveStart: 10-01-2023 End: 69-48-7982bhpj 1 tablet by mouth once dailyL Norgest/E.Estradiol-E.Estrad (Simpesse) 0.15 mg-30 mcg (84)/10 mcg (7) tablets,dose pack,3 month Discontinued 1 TAB PO Daily October 01, 2023 1:00am April 29, 2025 1:44pmStart: 45-13-5653fabs 1 tablet by mouth once dailyL Norgest/E.Estradiol-E.Estrad (Simpesse) 0.15 mg-30 mcg (84)/10 mcg (7) tablets,dose pack,3 month Active 1 TAB PO Daily October 01, 2023 1:00amStart: 10-02-5867tmbp 1 tablet by mouth once dailyL Norgest/E.Estradiol-E.Estrad (Simpesse) 0.15 mg-30 mcg (84)/10 mcg (7) tablets,dose pack,3 month Active 1 TAB PO Daily October 01, 2023 12:00amtake 1 tablet by mouth once dailyLevonorgest-Eth Estrad -Day (SIMPESSE) 0.15-0.03 &0.01 MG TABS Take 1 tablet by mouth daily Mhfndm788 actuat fluticasone propionate 0.11 mg/actuat metered dose inhaler (20 sources)CorticosteroidStart: 46-05-8335cgce 2 puff(s) by inhalation in the morningfluticasone (Flovent) 110 MCG/ACT inhaler Indications: Mild intermittent asthma without complication (HCC) Inhale 2 puffs in the morning and 2 puffs before bedtime. 12 g 5 02/29/2024 ActiveStart: 54-29-5853uqjjsfundwp (FLONASE) 50 MCG/ACT nasal spray 1 spray by Nasal route daily 1 Bottle 5 06/07/2019 Active Start: 10-51-3139iuab 2 puff(s) by inhalation twice dailyfluticasone (FLOVENT HFA) 220 MCG/ACT inhaler Inhale 2 puffs into the lungs 2 times daily 1 Inhaler5 11/09/2018 Activeflovent HFA Xqnrym48 hr guaiFENesin 1200 mg / pseudoephedrine hydrochloride 120 mg extended release oral tablet (20 sources)alpha-Adrenergic AgonistStart: 01-54-5621ptvl 120-1200 mg by mouth every twelve hours as neededMucinex D Max Strength 120-1200 MG tablet sustained- release 12 hour Indications: Seasonal allergic rhinitis due to pollen TAKE 1 TABLET BY MOUTH TWICE DAILY NEEDED for congestion 60 tablet 3 05/27/2024 ActiveStart: 25-15-6714torm 120-1200 mg by mouth every twelve hours as needed pseudoephedrine-guaiFENesin ER (Mucinex D Max Strength) 120-1200 MG tablet sustained-release 12 hour Indications: Seasonal allergic rhinitis due to pollen Take 1 tablet by mouth 2 (two) times a day as needed (congestion) 60 tablet 3 02/29/2024 ActivehydrOXYzine hydrochloride 25 mg oral tablet (20 sources)AntihistamineStart: 89-33-2089zctf 1 tablet by mouth four times daily as neededhydrOXYzine HCl (Atarax) 25 MG tablet Indications: Urticaria, unspecified TAKE 1 TABLET BY MOUTH FOUR TIMES DAILY NEEDED 60 tablet 2 05/15/2024 ActiveStart: 23-92-1139fzup 1 tablet by mouth twice daily as needed 200 actuat levalbuterol 0.045 mg/actuat metered dose inhaler (5 sources)beta2-Adrenergic AgonistStart: 19-04-8790xutzZDQXybfi 750 mg oral tablet (6 sources)Quinolone AntimicrobialStart: 04-10-2025 End: 10-42-5535xdgb 1 tablet by mouth once dailyStart: 03-19-2025 End: 66-31-4558howe 1 tablet by mouth once dailylevoFLOXacin (Levaquin) 750 MG tablet Indications: Acute non-recurrent pansinusitis Take 1 tablet (750 mg) by mouth Daily for 7 days 7 tablet 03/19/2025 03/26/2025 ActiveStart: 11-21-2024 End: 40-56-6732grbx 1 tablet by mouth once dailylevoFLOXacin (Levaquin) 750 MG tablet Indications: Acute non-recurrent pansinusitis Take 1 tablet (750 mg) by mouth Daily for 7 days 7 tablet 11/21/2024 11/28/2024 Activeloratadine 10 mg oral tablet (1 source)loratadine (CLARITIN) 10 MG tablet Take 1 tablet by mouth as needed ActiveLow-Ogestrel (2 sources)Low-Ogestrel Activemontelukast 10 mg oral tablet (20 sources)Leukotriene Receptor AntagonistStart: 21-01-8687qnrk 1 tablet by mouth once dailymontelukast (SINGULAIR) 10 MG tablet TAKE 1 TABLET BY MOUTH DAILY FOR ASTHMA 90 tablet 1 11/19/2019ActiveSingulair Activenaloxone 0.4 mg in 10 mL sodium chloride syringe (1 source)Start: 71-61-5386WkmazRVUoak, PRN, Opioid Reversal, Starting on Mon12/04/24 at 1245, PRN if respiratory rate is lessthan 6/min and patient is difficult to arouse [...] as administered previously). Concentration 0.04 mg/mL, PACU onlyNasacort Allergy 24HR (1 source)Nasacort Allergy 24HR ActiveNebulizers (BOB LC PLUS NEB SET PED MASK) MISC (1 source)Start: 53-42-5160Wjutzuzite (BOB LC PLUS NEB SET PED MASK) MISC 1 Device by Does not apply route 2 times daily. 1 each 0 09/13/2013 Active ondansetron 4 mg disintegrating oral tablet (20 sources)Serotonin-3 Receptor AntagonistStart: 98-80-7535xsqanloalun ODT (Zofran-ODT) 4 MG disintegrating tablet Indications: Migraine without aura and without status migrainosus, not intractable DISSOLVE 1 (ONE) TABLET ON THE TONGUE EVERY 6 HOURS NEEDED 30 tablet 2 03/19/2024 ActiveStart: 03-22-2019 take 1 tablet by mouth every eight hours as needed for nauseaondansetron (ZOFRAN-ODT) 4 MG disintegrating tablet Take 1 tablet by mouth every 8 hours as needed for Nausea or Vomiting 0 03/22/2019 Activepantoprazole 40 mg delayed release oral tablet (10 sources)Proton Pump InhibitorStart: 46-98-0917Eevxpmdcnmyp Active MG PO February 23, 2024 12:00amStart: 01-25-2024 End: 07-53-1710luor 1 tablet by mouth before mealtimepantoprazole (ProtoNix) 40 MG EC tablet Indications: Gastroesophageal reflux disease without esophagitis TAKE 1 TABLET BY MOUTH IN THE MORNING BEFORE MEALS * DO NOT CRUSH, CHEW, OR SPLIT * 30 tablet 5 05/27/2024 07/16/2024 DiscontinuedpredniSONE 10 mg oral tablet (5 sources)Start: 05-23-2024 End: 78-44-8701rlnd 6 tablets by mouth once daily, then take 4 tablets by mouth once daily, then take 2 tablets bymouth once daily, then take 1 tablet by mouth once dailypredniSONE (Deltasone) 10 MG tablet Indications: Acute bronchitis due to other specified organisms 6 PO daily x 3 days, 4 PO daily x 3 days, 2 PO daily x 3 days, 1 PO daily x 3 days 39 tablet 05/23/2024 07/16/2024 Discontinued Respiratory Therapy Supplies ([employer] HOLDING CHAMBER/MASK) TRINIDAD (3 sources)Start: 23-04-0876Nodlahedrom Therapy Supplies ([employer] HOLDING CHAMBER/MASK) TRINIDAD 1 Device by Does not apply route daily 1 Device 09/13/2019 ActiveStart: 88-56-1067Deawovyuwge Therapy Supplies ([employer] HOLDING CHAMBER/MASK) TRINIDAD 1 Device by Does not apply route daily 1 Device 08/15/2016 ActiveStart: 92-79-5024Fuzntpijfrw Therapy Supplies ([employer] HOLDING CHAMBER/MASK) TRINIDAD by Does not apply route. 1 Device Active rizatriptan 10 mg disintegrating oral tablet (20 sources)Serotonin-1b and Serotonin-1d Receptor AgonistStart: 34-75-9913lnpw 1 tablet by mouth once as neededrizatriptan (MAXALT-DELINQUENCY PREVENTION SOCIAL WORKER) 10 MG disintegrating tablet Take 1 tablet by mouth once as needed 05/14/2024 ActiveStart: 10-01-2023 rizatriptan DELINQUENCY PREVENTION SOCIAL WORKER (Maxalt-DELINQUENCY PREVENTION SOCIAL WORKER) 10 MG disintegrating tablet Indications: Migraine without aura and without status migrainosus, not intractable TAKE 1 TABLET BY MOUTH at the onset OF headache may repeat in 2 (TWO) HOURS once 9 tablet 3 05/14/2024 ActiveSimpesse (1 source)Simpesse Active5 ml sodium chloride 9 mg/ml injection (7 sources)Start: -40 mL, IntraVENous, EVERY 12 HOURS SCHEDULED (2 times per day), First dose on Mon12/04/24 at 2100, Until Discontinued, For Line Patency: Peripheral IV = 5 mL; Midline or Central Line = 10 mL/lumen.If following IV push medication, administer flush at same rate as the IV push. Flush volume is determined by type of infusion therapy being given. For non- viscous solutions use: Peripheral IV = 5 mL Midline or Central Line = 10 mL/lumen For viscous solutions (i.e. blood components, parenteral nutrition, contrast media, or after obtaining blood sample) use: Peripheral IV = 10 mL Midline or CentralLine = 20 mL/lumen, PACU onlyStart: 02-11-5787EdmqzAGUlmj, at 125 mL/hr, CONTINUOUS, Starting on Mon12/04/24 at 0945, Pre-op (day of surgery) Start: 88-61-1200gidi 20 mL intravenously every hourIntraVENous, at 5-250 mL/hr, PRN, if patient receiving [...] less into rate field of order., PACU onlyStart: -40 mL, IntraVENous, EVERY 12 HOURS SCHEDULED (2 times per day), First dose on Mon12/04/24 at 0945, Until Discontinued, For Line Patency: Peripheral IV = 5 mL; Midline or Central Line = 10 mL/lumen.If following IV push medication, administer flush at same rate as the IV push. Flush volume is determined by type of infusion therapy being given. For non-viscous solutions use: Peripheral IV = 5 mL Midline or Central Line = 10 mL/lumen For viscous solutions (i.e. blood components, parenteral nutrition, contrast media, or after obtaining blood sample) use: Peripheral IV = 10 mL Midline or CentralLine = 20 mL/lumen, Pre-op (day of surgery)Start: - 40 mL, IntraVENous, PRN, Starting on Mon12/04/24 at [...] For viscous solutions (i.e. blood components, parenteral nutrition,contrast media, or after obtaining blood sample) use: Peripheral IV = 10 mL Midline or Central Line= 20 mL/lumen, PACU onlySUMAtriptan (1 source)Serotonin-1b and Serotonin-1d Receptor AgonistImitrex Activetopiramate 100 mg oral tablet (20 sources)Start: 69-14-0932tvtj 1 tablet by mouth three times daily at bedtime topiramate (Topamax) 100 MG tablet Indications: Migraine without aura and without status migrainosus, not intractable TAKE 1 TABLET BY MOUTH THREE TIMES DAILY (IN THE MORNING, IN THE EVENING, and BEFORE bedtime) 90 tablet 3 03/06/2025 ActiveStart: 31-83-8911jsnb 1 tablet by mouth three times daily at bedtimetopiramate (Topamax) 100 MG tablet Indications: Migraine without aura and without status migrainosus, not intractable TAKE 1 TABLET BY MOUTH THREE TIMES DAILY (IN THE MORNING, IN THE EVENING, and BEFORE bedtime) 90 tablet 3 05/27/2024 Activetake 2 tablets by mouth three times dailytopiramate (TOPAMAX) 25 MG tablet Take 2 tablets by mouth 3 times daily ActiveTopamax Active Completed/Discontinued Medications MedicationDrug Class(es)DatesSig (Normalized)Sig (Original)acetaminophen 500 mg oral capsule (5 sources)Start: 10-01-2023 End: 75-12-1365jphl 2 capsules by mouth every six hours as neededAcetaminophen 500 mg capsule Discontinued 1000 MG PO Every 6 hours as needed October 01, 2023 1:00am February 23, 2024 4:21pmStart: 10-01-2023 End: 03-85-5818lkxi 1000 mg by mouth every six hoursAcetaminophen Discontinued 1000 MG PO Every 6 hours October 01, 2023 1:00am February 23, 2024 4:21pm aprepitant 40 mg oral capsule (1 source)Substance P/Neurokinin-1 Receptor AntagonistStart: 12-04-2024 End: 99-65-6161vblt 1 dose by mouth once daily40 mg, Oral, ONCE, 1 dose, On Mon12/04/24 at 0945, Pre-op (day of surgery)budesonide 0.25 mg/ml inhalation suspension (5 sources)CorticosteroidStart: 10-01-2023 End: 52-09-2004jnta 0.5 mg by inhalation once dailyBudesonide (Pulmicort) 0.5 mg/2 mL suspension for nebulization Discontinued 0.5 MG INHALATION Daily60 0 October 01, 2023 1:00am February 23, 2024 4:21pm12 hr dextromethorphan hydrobromide 30 mg / guaiFENesin 600 mg extended release oral tablet (5 sources)Uncompetitive M-gegwah-A-aspartate Receptor Antagonist, Sigma-1 AgonistStart: 10-01-2023 End: 06-11-7507pnmj 1 tablet by mouth every twelve hoursDextromethorphan- Guaifenesin (Mucinex Dm) 30-600 mg tablet extended release 12 hr Discontinued 1 TAB PO Every 12 hours October 01, 2023 1:00am February 23, 2024 4:21pm dextromethorphan hydrobromide 1.5 mg/ml / pyrilamine maleate 1.5 mg/ml oral solution (5 sources)Uncompetitive O-mbhwlf-S-aspartate Receptor Antagonist, Sigma-1 AgonistStart: 10-01-2023 End: 65-73-9909mbdu 1 mL by mouth every eight hoursPyrilamine-Dextromethorphan (Hancock Dm) 7.5-7.5 mg/5 mL liquid Discontinued 10 ML PO Every 8 hours 150 5 0 October 01, 2023 1:00am February 23, 2024 4:22pmethinyl estradiol 0.035 mg / norethindrone acetate 1 mg oral tablet (1 source)EstrogenStart: 05-30-2019 End: 61-89-7329pegg 1 tablet by mouth once dailyNORTREL 1/35, 28, 1-35 MG-MCG per tablet TK 1 T PO QD 0 05/30/2019 12/03/2024 Discontinued (LIST CLEANUP)2 ml fentaNYL 0.05 mg/ml injection (1 source)Opioid AgonistStart: mcg, IntraVENous, EVERY 5 MIN PRN, 4 doses, Starting on Mon12/04/24 at 1245, Until Discontinued,Pain Moderate (4-6), allowed for higher pain score per patient request, Phase I - Initial therapy fo r moderate pain., PACU only1 ml haloperidol 5 mg/ml prefilled syringe (1 source)Typical AntipsychoticStart: mg, IntraVENous, ONCE PRN, 1 dose, Starting on Mon12/04/24 at 1245, Until Discontinued, Agitation, nausea, Secondary antiemetic therapy., PACU only0.5 ml HYDROmorphone hydrochloride 1 mg/ml prefilled syringe (1 source)Opioid AgonistStart: 50.5 mg, IntraVENous, EVERY 5 MIN PRN, 4 doses, Starting on Mon12/04/24 at 1245, Until Discontinued,Pain Severe (7-10), Phase I - Initial therapy for severe pain., PACU onlyibuprofen 200 mg oral capsule (5 sources)Nonsteroidal Anti-inflammatory DrugStart: 10-01-2023 End: 69-94-4360lcjd 2 capsules by mouth every six hours as neededIbuprofen 200 mg capsule Discontinued 400 MG PO Every 6 hours as needed October 01, 2023 1:00am February 23, 2024 4:22pmStart: 10-01-2023 End: 92-56-8922ucod 400 mg by mouth every six hoursIbuprofen Discontinued 400 MG PO Every 6 hours October 01, 2023 1:00am February 23, 2024 4:22pm10 ml lidocaine hydrochloride 10 mg/ml injection (1 source)Antiarrhythmic, Amide Local AnestheticStart: 83-53-9648wmdr 1 dose intravenously once daily1 mL, IntraDERmal, ONCE PRN, 1 dose, Starting on Mon12/04/24 at 0921, Until Discontinued, IV start,Pre-op (day of surgery)2 ml metoclopramide 5 mg/ml prefilled syringe (1 source)Dopamine-2 Receptor AntagonistStart: 10-34-046178 mg, IntraVENous, ONCE PRN, 1 dose, Starting on Mon12/04/24 at 1245, Until Discontinued, Nausea, I nitial antiemetic therapy. Do not give if hx parkinsons disorder or extrapyramidal symptoms, PACU only2 ml midazolam 1 mg/ml injection (1 source)BenzodiazepineStart: 12-04-2024 End: mg, IntraVENous, ONCE, 1 dose, On Mon12/04/24 at 0945, STAT, Pre-op (day of surgery)omeprazole 40 mg delayed release oral capsule (1 source)Proton Pump InhibitorStart: 03-22-2019 End: 61-15-1246flyeovqjkc (PRILOSEC) 40 MG delayed release capsule 1 capsule as needed 5 03/22/2019 12/03/2024 Discontinued (LIST CLEANUP)oxyCODONE hydrochloride 5 mg oral tablet (1 source)Opioid AgonistStart: 12-04-2024 End: 11-56-2253vcfq 1 dose by mouth once for pain5 mg, Oral, ONCE PRN, 1 dose, Starting on Mon12/04/24 at 1245, Until Mon12/04/24 at 1409, Pain Moderate (4-6), allowed for higher pain score per patient request, Pain Severe (7-10), PHASE II, PACU onlypromethazine hydrochloride 12.5 mg oral tablet (1 source)PhenothiazineStart: 12-04-2024 End: 99-98-0350kuph 1 dose by mouth once daily12.5 mg, Oral, ONCE, 1 dose, On Mon12/04/24 at 0945, Pre-op (day of surgery)Triamcinolone (1 source)CorticosteroidStart: 55-89-1295XHIHKTW - 10 mg Mar, 40 mg Problems Active Problems Problem ClassificationProblemDateDocumented DateEpisodic/ChronicAnxiety disorders (20 sources)Generalized anxiety disorder; Translations: [Generalized anxiety disorder]Onset: 231964-44-1838HkxnxgeXahddc (20 sources)Exacerbation of moderate persistent asthma; Translations: [Moderate persistent asthma with (acute) exacerbation]Onset: [id number] Codes: Natural/environment (5 sources)Insect bite - wound; Translations: [Bitten or stung by nonvenomous insect and other nonvenomous arthropods, initial encounter]00-28-2040Xxskpckp Endometriosis (20 sources)Endometriosis (clinical); Translations: [Endometriosis, unspecified] Onset: 707989-08-2309NdhnnhkIpqetcoicx disorders (20 sources)Gastroesophageal reflux disease without esophagitis; Translations: [Gastro-esophageal reflux disease without esophagitis]Onset: 01-25-2024 74-21-0807QbozaigKpptpxzl; including migraine (20 sources)Migraine without aura, not refractory ; Translations: [Migraine without aura, not intractable, without status migrainosus]Onset: 01-17-2023 Resolved: 937892-10-9323PpxdasiQvloxjmqvsegp (4 sources)Localized enlarged lymph nodes; Translations: [LOCALIZED ENLARGED LYMPH NODES]Onset: 36-61-5689CjkkxoymUasxy connective tissue disease (1 source)Leg swelling symptomOnset: 87-88-1855VsohgvgbVryuq nervous system disorders (1 source)Other speech disturbances; Translations: [Breathy voice quality]Onset: 44-10-7937RetpwlltCwbis non-traumatic joint disorders (3 sources)Pain in wrist; Translations: [Pain in right wrist]17-61-8522Uyvswopl Other non-traumatic joint disorders (1 source)Pain in right wrist; Translations: [Pain in right wrist]Onset: 92-70-8798FkcioafbVdwao non-traumatic joint disorders (1 source)Pain in right ankle and joints of right foot; Translations: [Pain in right ankle and joints of right foot]Onset: 38-65-8535AjfdhjbkCrkpd non- traumatic joint disorders (1 source)Pain of right wrist; Translations: [Pain in right wrist]05-21-2025 EpisodicOther upper respiratory disease (1 source)Allergic rhinitis; Translations: [Allergic rhinitis, unspecified] ChronicOther upper respiratory disease (1 source)Allergic rhinitis, unspecifiedChronicOther upper respiratory disease (20 sources)Allergic rhinitis due to pollen; Translations: [Allergic rhinitis due to pollen]Onset: 792020-63-5015TccwagkKoiba upper respiratory disease (1 source)Dysphonia; Translations: [Hoarse voice quality]Onset: 01-17-2023 EpisodicResidual codes; unclassified (1 source)Acquired absence of other organs; Translations: [Other postprocedural status]50-65-0270UxztrbdgFiuj and subcutaneous tissue infections (1 source)Cellulitis, unspecified; Translations: [Cellulitis, unspecified]Onset: 31-67-5406IkaswrjuPdsjlpx and strains (7 sources)Sprain of right wrist; Translations: [Unspecified sprain of right wrist, initial encounter]Onset: 058206-19-7327RkdujvcrWgirrtdoghoq (3 sources)CONTACT W/AND (SUSP) EXPOS COVID-19; Translations: [CONTACT W/AND (SUSP) EXPOS COVID-19]Onset: 22-32-3458Ecutthzrnads (1 source)Post-op ProblemOnset: 64-79-4694Jtvon infection (1 source)COVID-19; Translations: [COVID-19]Onset: 03-28-2022 Past or Other Problems Problem ClassificationProblemDateDocumented DateEpisodic/ChronicAbdominal pain (20 sources)Right upper quadrant pain; Translations: [Right upper quadrant pain] Onset: 698969-84-8671AiyvhqjsSnnzr bronchitis (20 sources)Acute infective bronchitis; Translations: [Acute bronchitis due to other specified organisms]Onset: 05-23-2024 Resolved: 683082-78-5461TrbbzcmvRscyxtajky disorders (20 sources)Adjustment disorder with anxious mood; Translations: [Adjustment disorder with anxiety]Onset: 01-17-2023 Resolved: 319102-96-9008UlyjkqmYqjhacw tract disease (20 sources)Biliary dyskinesia; Translations: [Other specified diseases of gallbladder]Onset: 802398-58-4189HfbszyfiMflwbve dysrhythmias (12 sources)Tachycardia; Translations: [Tachycardia, unspecified]Onset: 890781-81-5679ZqknacczXzlvewaceepcn and screening for infectious disease (1 source)Contact with and (suspected) exposure to other viral communicable diseasesOnset: 07-22-2021 Resolved: 07-07-4498EilctfwkIvpzq connective tissue disease (1 source)Posterior tibial tendinitis, right leg; Translations: [Posterior tibial tendinitis, right leg]Onset: 89-34-4512BicwumeaFhlys non-traumatic joint disorders (20 sources)Multiple joint pain; Translations: [Pain in unspecified joint]Onset: 676065-56-2676NwwyzockHadjb non-traumatic joint disorders (20 sources)Acute ankle pain; Translations: [Pain in right ankle and joints of right foot]Onset: 11-30-2023 Resolved: 275415-20-2924AjpdkysiDhhrl upper respiratory infections (20 sources)Acute pharyngitis, unspecified; Translations: [Acute pansinusitis] Onset: 07-22-2021 Resolved: 37-05-7781VepkjbjxJwagiw media and related conditions (20 sources)Acute non-suppurative otitis media of left ear; Translations: [Other acute nonsuppurative otitis media, left ear]Onset: 01-10-2024 Resolved: 430279-11-0275OgmijfqrVcmcddzb codes; unclassified (20 sources)Disturbance in sleep behavior; Translations: [Sleep disorder, unspecified]Onset: 01-17-2023 Resolved: 095853-11-6080FufqdxaqZdfjukddjzpz (1 source)CONTACT W/AND (SUSP) EXPOS COVID-19; Translations: [CONTACT W/AND (SUSP) EXPOS COVID-19]Onset: 03-24-2022 Results Test NameValueInterpretationReference RangeFacilityXR ANKLE RT MIN 3Von 59-58-1906[place], [place] [address] XRay Report Signed Patient: URSZULA BULLARD MR#: [id number] : 2005 Acct:[id number] Age/Sex: 19 / F ADM Date: 03/26/25 Loc: RAD Attending Dr: Orlando Ramirez D.P.M. Ordering Physician: Orlando Ramirez D.P.M. Date of Service: 03/26/25 Procedure(s): XR ankle RT min 3V Accession Number(s): [id number] cc: Orlando Ramirez D.P.M.; Alberto Enamorado M.D. The [place] [id number] Patient Name: URSZULA BULLARD MRN: [facility]:[id number] date: 2005 Sex: F Assigned Patient Location: RAD Current Patient Location: RAD Accession/Order Number: [id number] Exam Date: 03/26/2025 15:56 Report Date: 03/26/2025 15:59 At the request of: ORLANDO RAMIREZ DPM Procedure: XR ankle RT min 3V 3 views right ankle plain film standing position COMPARISON: 04/17/2024 HISTORY: Chronic right ankle pain. Surgery December 04, 2024 ACUTE FINDINGS: Chronic bony changes. DEGENERATIVE CHANGE: Moderate degeneration SOFT TISSUE FINDINGS: Unremarkable JOINT EFFUSION: None POSTOP CHANGES: Calcaneal hardware intact. BONE MINERALIZATION: Adequate XR/XR ankle RT min 3V IMPRESSION: No bony or hardware complication. Impression dictated by: Jayjay Blanco M.D. 03/26/2025 3:59 PM Dictation Location: [place] [address] Electronically authenticated by: [id number] Y Date: 03/26/2025 15:59 Dictated By: Jayjay Blanco D.O. Signed By: 03/26/25 1602 DD/ 1559 TD/TT: Education Dean:TBHRadiology, Radiologist, MD - 03/26/2025 [place] [address] XRay Report Signed Patient: URSZULA BULLARD MR#: [id number] : 2005 Acct:[id number] Age/Sex: 19 / F ADM Date: 03/26/25 Loc: RAD Attending Dr: Orlando Ramirez D.P.M. Ordering Physician: Orlando Ramirez D.P.M. Date of Service: 03/26/25 Procedure(s): XR ankle RT min 3V Accession Number(s): [id number] cc: Orlando Ramirez D.P.M.; Alberto Enamorado M.D. [facility] [place] [id number] Patient Name: URSZULA BULLARD MRN: [facility]:[id number] date: 2005 Sex: F Assigned Patient Location: RAD Current Patient Location: RAD Accession/Order Number: [id number] Exam Date: 03/26/2025 15:56 Report Date: 03/26/2025 15:59 At the request of: ORLANDO RAMIREZ DPM Procedure: XR ankle RT min 3V 3 views right ankle plain film standing position COMPARISON: 04/17/2024 HISTORY: Chronic right ankle pain. Surgery December 04, 2024 ACUTE FINDINGS: Chronic bony changes. DEGENERATIVE CHANGE: Moderate degeneration SOFT TISSUE FINDINGS: Unremarkable JOINT EFFUSION: None POSTOP CHANGES: Calcaneal hardware intact. BONE MINERALIZATION: Adequate XR/XR ankle RT min 3V IMPRESSION: No bony or hardware complication. Impression dictated by: Jayjay Blanco M.D. 03/26/2025 3:59 PM Dictation Location: [place] [address] Electronically authenticated by: [id number] Y Date: 03/26/2025 15:59 Dictated By: Jayjay Blanco D.O. Signed By: 03/26/25 1605 DD/ 155 TD/TT: Education Dean: NOMMegan HealthcareRadiology Study observation (narrative)NOMS HealthcareXR ANKLE RT MIN 3VOrdered By: Radiologist Radiology on 14-42-3177YEEBSac-Osage Hospital Work Phone: cT ANKLE RT WO CONTon 39-15-4573AD ANKLE RT WO CONTCT ANKLE RT WO CONT CT ANKLE RT WO CONT CLINICAL INFORMATION: [...] the calcaneus. Mild soft tissue edema. No noankle joint effusion. No marked degenerative changes. IMPRESSION: * Postoperative changes with severe disuse osteopenia. Finalized by Yvan Becerra MD on 03/25/2025 1:52 PMNormalProMedica Dayton VA Medical Center CBC WITH AUTO DIFFon 16-05-7020OPTFEEEVQ ABSOLUTE AUTO0 NOMS HealthcareBasophils/100 WBC (Bld)0.6 %0.2 - 2.0 %[facility] Eosinophils/100 WBC (Bld)7.7 %High0.9 - 7.0 %[facility] HospitalErythrocyte distribution width (RBC) [Ratio]11.2 %11.0 - 15.0 %[facility] HospitalHematocrit (Bld) [Volume fraction]39.3 %36.0 - 48.0 %[facility] HospitalHemoglobin (Bld) [Mass/Vol]13.9 g/dL12.0 - 16.0 g/dLSac-Osage HospitalIMMATURE GRANULOCYTES ABS AUTO 0.01NOMS [facility] HospitalImmature granulocytes/100 WBC (Bld)0.2 %0.0 - 0.5 %[facility] HospitalInterpretation and review of laboratory resultsAbnormalSac-[facility] Hospital LYMPHOCYTES ABSOLUTE AUTO2.2NOMS [facility] HospitalLymphocytes/100 WBC (Bld)36 %20.5 - 60.0 %[facility] Science CenterH (RBC) [Entitic mass]34.6 ijPmzi78.7 - 34.0 pgSaint Louis University Health Science CenterHC (RBC) [Mass/Vol]35.4 g/hPGldl68.9 - 35.2 g/dLSaint Louis University Health Science CenterV (RBC) [Entitic vol]97.8 fL81.0 - 99.0 fLSac-Osage HospitalMONOCYTES ABSOLUTE AUTO 0.6NOMS [facility] HospitalMonocytes/100 WBC (Bld)8.8 %1.7 - 12.0 %[facility] NEUTROPHILS ABSOLUTE AUTO2.9NOMS [facility] HospitalNeutrophils/100 WBC (Bld)46.7 %43.0 - 75.0 %[facility] HospitalPlatelet mean volume (Bld) [Entitic vol]10.1 fL9.5 - 13.5 fLSac-Osage HospitalTB EO #0.5NOMS [facility] HospitalTB [id number] John's Breech Regional Medical Center RBC4.02 LowNOSaint John's Breech Regional Medical Center WBC6.2NOMS [facility] HospitalCLINISYNCNSaint Luke's North Hospital–Barry RoadALL MAGNESIUM on 12-93-0600Osjwegmjj [Mass/Vol]2 mg/dL1.8 - 2.4 mg/dLSac-Osage HospitalCCF CMP (CMP) (FOR REMOTE [facility] USE)on 52-95-4922Kxhhrwp [Mass/Vol]3.9 g/dL3.4 - 5.0 g/dL NOMS HealthcareALBUMIN GLOBULIN RATIO1.4NOPA HealthcareALP [Catalytic activity/Vol]56 U/L46 - 116 U/LNOMS HealthcareALT [Catalytic activity/Vol]19 U/L 14 - 59 U/LNOMS HealthcareAnion gap [Moles/Vol]14.5 mmol/LNOMS HealthcareAST [Catalytic activity/Vol]14 U/LLow15 - 37 U/LNOMS HealthcareBilirubin [Mass/Vol] 0.3 mg/dL0.2 - 1.0 mg/dLNOPA HealthcareCalcium [Mass/Vol]8.8 mg/dL8.5 - 10.1 mg/dLNOPA HealthcareChloride [Moles/Vol]107 mmol/L98 - 107 mmol/LNOMS Healthcare CO2 [Moles/Vol]21.2 mmol/L21.0 - 32.0 mmol/LNOMS HealthcareCreatinine [Mass/Vol] 0.88 mg/dL0.55 - 1.02 mg/dLNOPA HealthcareGFR/1.73 sq M.predicted CKD-EPI (S/P/Bld) [Vol rate/Area]>60>=60 mL/min/1.73m 2[facility] HealthcareGlobulin (S) [Mass/Vol]2.8 g/dLNOPA HealthcareGlucose [Mass/Vol]107 mg/fMJqca90 - 106 mg/dL [facility] HealthcareInterpretation and review of laboratory resultsAbnormalNOPA HealthcarePotassium [Moles/Vol]3.7 mmol/L3.5 - 5.1 mmol/LNOMS HealthcareProtein [Mass/Vol]6.7 g/dL6.4 - 8.2 g/dLNOPA HealthcareSodium [Moles/Vol]139 mmol/L136 - 145 mmol/LNOMS [facility] HospitalTBH EGFR-NON AF [place]ER>60>=60 mL/min/1.73m 2[facility] HealthcareUrea nitrogen [Mass/Vol]14 mg/dL6.4 - 19.3 mg/dLNOPA HealthcareUrea nitrogen/Creatinine [Mass ratio]15.9 mg/mgNOPA HealthcareNo Panel Informationon 76-06-7026DGNIVWIEMTGSW HealthcareTSH W/REFLEX T4on 31-15-3082RZB Qn1.619 m[IU]/LNOMS HealthcareC-REACTIVE PROTEINon 01-05-2025 REACTIVE PROTEIN0.6 mg/dL Normal<=0.7ProHereford Regional Medical CenterComment on above:Performed By: #### CRP #### [facility] ([address] [place] [address] VIRCBC WITH AUTO DIFFERENTIALon 75-85-1218YEGFFCYMT ABSOLUTE COUNT (10*3/UL) BY AUTOMATED COUNT0.0 10*3/uLNormal0.0-0.2ProMedCentinela Freeman Regional Medical Center, Memorial CampusComment on above:Performed By: #### CBCA #### [facility] ([address] [address] VIRBASOPHILS RELATIVE PERCENT BY AUTOMATED COUNT0.3 %Normal [facility] SystemComment on above:Performed By: #### CBCA #### [address] [address] VIRCELLAVISION DIFFERENTIAL TYPEAUTOMATED DIFFERENTIALNormal [facility] SystemComment on above:Performed By: #### CBCA #### [facility] ([address] [address] VIREosinophils (Bld) [#/Vol]0.8 10*3/uLHigh0.0-0.4ProHereford Regional Medical CenterComment on above:Performed By: #### CBCA #### [facility] ([address] [place] [address] VIREOSINOPHILS RELATIVE PERCENT BY AUTOMATED COUNT9.8 %Normal [facility] SystemComment on above:Performed By: #### CBCA #### [facility] ([address] [address] VIRErythrocyte distribution width (RBC) [Ratio]13.1 %Normal 11.5-15ProHereford Regional Medical CenterComment on above:Performed By: #### CBCA #### [facility] ([address] [place] [address] VIRHematocrit (Bld) [Volume fraction]39.9 %Satocc70-07 [facility] SystemComment on above:Performed By: #### CBCA #### [facility] ([address] [address] VIRHemoglobin (Bld) [Mass/Vol]13.8 g/zJJslxsp98.7-15.5 [facility] SystemComment on above:Performed By: #### CBCA #### [facility] ([address] [address] VIRLYMPHOCYTES ABSOLUTE COUNT (10*3/UL) BY AUTOMATED COUNT2.7 10*3/uLNormal1.0-3.5PRegency Hospital Cleveland EastComment on above:Performed By: #### CBCA #### [facility] ([address] [address] VIRLYMPHOCYTES RELATIVE PERCENT BY AUTOMATED COUNT33.2 %Normal [facility] SystemComment on above:Performed By: #### CBCA #### [facility] ([address] [address] VIRMCH (RBC) [Entitic mass]33.4 kkWjfjsn53-75HilKeokukHereford Regional Medical CenterComment on above:Performed By: #### CBCA #### [facility] ([address] [address] VIRMCHC (RBC) [Mass/Vol]34.6 g/rJPhiihf23-07WopFcszxkHereford Regional Medical CenterComment on above:Performed By: #### CBCA #### [facility] ([address] [address] VIRMCV (RBC) [Entitic vol]97 hOGuruhp66-899TmsAezmel Fremont HospitalComment on above:Performed By: #### CBCA #### [facility] ([address] [place] [address] VIRMONOCYTES ABSOLUTE COUNT (10*3/UL) BY AUTOMATED COUNT0.6 10*3/uLNormal0.0-0.9Tr[facility] Health SystemComment on above:Performed By: #### CBCA #### [facility] ([address] [place] [address] VIRMONOCYTES RELATIVE PERCENT BY AUTOMATED COUNT7.9 %Normal [facility] SystemComment on above:Performed By: #### CBCA #### [facility] ([address] [place] [address] VIRNEUTROPHILS ABSOLUTE COUNT BY AUTOMATED COUNT4.0 10*3/uL Normal1.5-6.6Trinity Health SystemComment on above:Performed By: #### CBCA #### [facility] ([address] [place] [address] VIRNEUTROPHILS RELATIVE PERCENT BY AUTOMATED COUNT48.8 %Normal [facility] SystemComment on above:Performed By: #### CBCA #### [facility] ([address] [place] [address] VIRPlatelet mean volume (Bld) [Entitic vol]7.7 fLNormal7-12 [facility] SystemComment on above:Performed By: #### CBCA #### [facility] ([address] [place] [address] VIRPlatelets (Bld) [#/Vol]346 10*3/uJKhhiyy965-279BnlNqwttx Fremont HospitalComment on above:Performed By: #### CBCA #### [facility] ([address] [place] [address] VIRRBC COUNT4.14 X10E12/LNormal3.8-5.2ProMedica Parnassus CampusComment on above:Performed By: #### CBCA #### [facility] ([facility]) [address] [place] [place] [address] VIRWBC (Bld) [#/Vol]8.2 10*3/uLNormal4-11Tr[facility] Health SystemComment on above:Performed By: #### CBCA #### [facility] ([place] [address] [place] [place] [address] VIRCOMPREHENSIVE METABOLIC PANELon 83-85-4309Wrphqts [Mass/Vol]3.9 g/dLNormal3.2-5.3PRegency Hospital Cleveland EastComment on above: Performed By: #### CMP #### [facility] ([place] [address] [place] [place] [address] VIRALP [Catalytic activity/Vol]58 U/INjaaqc49-333KfsQvsvmrHereford Regional Medical CenterComment on above:Performed By: #### CMP #### [facility] ([place] [address] [place] [address] VIRALT [Catalytic activity/Vol]20 U/LNormal<=31PRegency Hospital Cleveland EastComment on above:Performed By: #### CMP #### [facility] ([place] [address] [place] [place] [address] VIRAnion gap [Moles/Vol]9 mmol/LNormal5-15ProHereford Regional Medical CenterComment on above:Performed By: #### CMP #### [facility] ([place] [address] [place] [address] VIRAST [Catalytic activity/Vol]18 U/LNormal<=41ProHereford Regional Medical CenterComment on above:Performed By: #### CMP #### [facility] ([place] [address] [place] [place] [address] VIRBilirubin [Mass/Vol]0.6 mg/dLNormal0.3-1.2PRegency Hospital Cleveland EastComment on above:Performed By: #### CMP #### [facility] ([address] [place] [address] VIRCalcium [Mass/Vol]8.8 mg/dLNormal8.5-10.5PRegency Hospital Cleveland EastComment on above:Performed By: #### CMP #### [facility] ([address] [place] [address] VIRChloride [Moles/Vol]108 mmol/EHuugzz18-087BfxLhbxinHereford Regional Medical CenterComment on above:Performed By: #### CMP #### [facility] ([address] [place] [address] VIRCO2 [Moles/Vol]19 mmol/YAcv48-53ZkfQncwxtRegency Hospital Cleveland East Comment on above:Performed By: #### CMP #### [facility] ([address] [place] [address] VIRCreatinine [Mass/Vol]0.79 mg/dLNormal0.40-1.00ProHereford Regional Medical CenterComment on above:Result Comment: METHOD TRACEABLE TO IDMS STANDARDPerformed By: #### CMP #### [facility] ([address] [place] [address] VIREGFR (CKD-EPI) NON-RACE DEPENDENT>^90Normal>=60ProHereford Regional Medical CenterComment on above:Result Comment: Reported eGFR is based on the CKD-EPI 2021 equation that does not use a race coefficient.Performed By: #### CMP #### [facility] ([address] [place] [address] VIRGlucose [Mass/Vol]108 mg/lBSwts58-09AnlGgouvpHereford Regional Medical CenterComment on above:Performed By: #### CMP #### [facility] ([address] [place] [address] VIRPotassium [Moles/Vol]3.5 mmol/LNormal3.5-5.0ProHereford Regional Medical CenterComment on above:Performed By: #### CMP #### [facility] ([address] [address] VIRProtein [Mass/Vol]6.5 g/dLNormal6.0-8.0Tr[facility] Health SystemComment on above:Performed By: #### CMP #### [facility] ([address] [address] VIRSodium [Moles/Vol]136 mmol/LHouszs955-807EtxGlpcph [facility] HospitalComment on above:Performed By: #### CMP #### [facility] ([address] [address] VIRUrea nitrogen [Mass/Vol]18 mg/dLNormal5-23ProHereford Regional Medical CenterComment on above:Performed By: #### CMP #### [facility] ([address] [address] VIRD-DIMERon 01-05-2025D DIMER<^405Qdgjvr5-678PweEurdof Fremont HospitalComment on above:Result Comment: Results <255 ng/mL DDU: The presensence of a VTE can safely be excluded with a negative D-Dimer result and Wells score. A negative result doesn't exclude the possibility of DIC. The test should be repeated along with other diagnostic tests if the patient's symptoms persist or worsen.Performed By: #### DDMR #### [facility] ([address] [address] VIRERYTHROCYTE SEDIMENTATION RATE (ESR)on 24-58-5929CFN, ERYTHROCYTE SEDIMENTATION RATE<^6Kzfknl6-35EvrNycxdmHereford Regional Medical CenterComment on above:Performed By: #### ESR #### [facility] ([facility]) [address] [place] [address] VIRLACTATE W/ REFLEXon 30-47-4667HNOYXZN W/REFLEX1.0 mmol/L Normal0.4-2.0ProHereford Regional Medical CenterComment on above:Order Comment: Result did not trigger repeat Lactate, re-order if needed.Performed By: #### LACTS #### [facility] ([facility]) [address] [place] [address]. [place] [address] VIRXR FOOT RT MIN 3 VWSon 00-19-1007BX FOOT RT MIN 3 VWSXR FOOT RT MIN 3 VWS 3 views [...] by Nasrin Johnston MD on 01/05/2025 7:39 PMNormalProHereford Regional Medical CenterALL HCG SERUM,QUALITATIVEon 93-19-9730BGXP HCG SCREEN, BLOODNegativeNEG NOMS HealthcareComment on above:Specimens with hCG levels near the threshold of the test (25 mIU/mL) may give a negative or indeterminate result. In such cases, another test should be performed with a new specimen in 48-72 hours. If early is suspected clinically in this setting, correlation with quantitative serum b-hCG level is suggested. Original Ordering Provider: [facility]TEALL[facility] HealthcareFLUORO FOR SURGICAL PROCEDURESon 18-54-1817Kwovwwfip exam is complete. No Radiologist dictation. Please follow up with ordering provider. Final resultMHPTRadiology, MD [place] - 12/04/2024 Radiology exam is complete. No Radiologist dictation. Please follow up with ordering provider. Final result NOMS HealthcareRadiology Study observation (narrative)NOMS HealthcareFLUORO FOR SURGICAL PROCEDURESOrdered By: Radiologist Radiology on 74-47-8777TDEE [employer] Work Phone: Guidance-- during surgeryon 36-03-1430Jhfokbvzt exam is complete. No Radiologist dictation. Please follow up with ordering provider. PN RIS CONSOLIDATEDHCG, SERUM, QUALITATIVEon 87-40-2630AEG ( test) Ql NegativeNEGATIVEBon Madison HealthComment on above:Specimens with hCG levels near the threshold of the test (25 mIU/mL) may give a negative or indeterminate result. In such cases, another test should be performed with a new specimen in 48-72 hours. If early is suspected clinically in this setting, correlation with quantitative serum b-hCG level is suggested. Bon Madison HealthNo Panel Informationon 31-22-3679Iyvymqmok Study observation (narrative)NOMS HealthcareXR CALCANEUS RIGHT (MIN 2 VIEWS)on 65-81-4535GORBTLAYQSB: THREE XRAY VIEWS OF THE RIGHT FOOT; [...] Signed by: Chelly Tomlin MD 12/04/24 Final resultMHPTRadiology, Radiologist, - 12/04/2024 EXAMINATION: THREE XRAY VIEWS OF [...] by: Chelly Tomlin MD 12/04/24 Final result NOMS HealthcareXR CALCANEUS RIGHT (MIN 2 VIEWS)Ordered By: Radiologist Radiology on 36-90-5908EVMD [employer] Work Phone: XR FOOT RIGHT (MIN 3 VIEWS)on 94-83-0063TFDKLUXVCID: THREE XRAY VIEWS OF THE RIGHT FOOT; [...] Signed by: Chelly Tomlin MD 12/04/24 Final resultMHPTRadiology, MD [place] - 12/04/2024 EXAMINATION: THREE XRAY VIEWS OF [...] by: Chelly Tomlin MD 12/04/24 Final result NOMS HealthcareXR FOOT RIGHT (MIN 3 VIEWS)Ordered By: Radiologist Radiology on 98-78-5767MNLQ [employer] Work Phone: MR ANKLE RT WO CONTon 32-55-1609KJ ANKLE RT WO CONTMR ANKLE RT WO CONT MR ANKLE RT [...] Jason Díaz DO on 11/13/2024 9:17 AM I, Yrn Hurtado MD have personally reviewed the image(s) and agree with and/or edited the report Finalized by Yrn Hurtado MD on 11/13/2024 10:26 AMNormalProMedica Dayton [facility] Medical Center CBC WITH AUTO DIFFon 54-65-4726VRNLURZNV ABSOLUTE AUTO0 NOMS HealthcareBasophils/100 WBC (Bld)0.3 %0.2 - 2.0 %[facility] Eosinophils/100 WBC (Bld)2.3 %0.9 - 7.0 %NOMS HealthcareErythrocyte distribution width (RBC) [Ratio]11.3 %11.0 - 15.0 %NOM HealthcareHematocrit (Bld) [Volume fraction]43.7 %36.0 - 48.0 %[facility]ac-[facility] HospitalHemoglobin (Bld) [Mass/Vol]15.4 g/dL 12.0 - 16.0 g/dLSac-Osage HospitalIMMATURE GRANULOCYTES ABS AUTO0.01NOMS [facility] Immature granulocytes/100 WBC (Bld)0.2 %0.0 - 0.5 %NOMOzarks Medical CenterLYMPHOCYTES ABSOLUTE AUTO1.9NOSaint John's Breech Regional Medical CenterLymphocytes/100 WBC (Bld)31.6 %20.5 - 60.0 %[facility] HospitalMCH (RBC) [Entitic mass]32.7 pg26.7 - 34.0 pgNOResearch Medical Center-Brookside CampusHC (RBC) [Mass/Vol]35.2 g/dL29.9 - 35.2 g/dLSac-Osage HospitalMCV (RBC) [Entitic vol]92.8 fL 81.0 - 99.0 fLSac-Osage HospitalMONOCYTES ABSOLUTE AUTO0.5NOSaint John's Breech Regional Medical Center Monocytes/100 WBC (Bld)8.8 %1.7 - 12.0 %[facility] HospitalNEUTROPHILS ABSOLUTE AUTO 3.4NOMS [facility] HospitalNeutrophils/100 WBC (Bld)56.8 %43.0 - 75.0 %[facility] Platelet mean volume (Bld) [Entitic vol]10 fL9.5 - 13.5 fLSac-Osage HospitalTB EO #0.1NOMS [facility] HospitalTB [id number] [facility] RBC4.71N[facility]S [facility] WBC6 [facility] HospitalCLINISYNCNOMS HealthcareXR FOOT RT MIN 3Von [id number] [address] XRay Report Signed Patient: URSZULA BULLARD MR#: [id number] : 2005 Acct:[id number] Age/Sex: 18 / F ADM Date: 08/13/24 Loc: RAD Attending Dr: Orlando Ramirez D.P.M. Ordering Physician: Orlando Ramirez D.P.M. Date of Service: 08/13/24 Procedure(s): XR foot RT min 3V Accession Number(s): [id number] cc: Orlando Ramirez D.P.M.; Alberto Enamorado M.D. [place] [id number] Patient Name: URSZULA BULLARD MRN: [id number] date: 2005 Sex: F Assigned Patient Location: RAD Current Patient Location: RAD Accession/Order Number: [id number] Exam Date: 08/13/2024 10:45 Report Date: 08/13/2024 22:37 At the request of: ORLANDO RAMIREZ Procedure: XR foot RT min 3V EXAM: XR foot RT min 3V HISTORY: Right Foot Pain COMPARISON: None. FINDINGS/IMPRESSION: 1. No acute fracture or dislocation. 2. Normal alignment of the forefoot. 3. No significant joint degeneration. Electronically authenticated by: JORGE BISHOP Date: 08/13/2024 22:37 Dictated By: Jorge Bishop M.D. Signed By: 08/13/242238 DD/ 36 TD/TT: Education Dean:NORRISHRadiology, Radiologist, MD - 08/14/2024 [place] [address] XRay Report Signed Patient: URSZULA BULLARD MR#: [id number] : 2005 Acct:[id number] Age/Sex: 18 / F ADM Date: 08/13/24 Loc: RAD Attending Dr: Orlando Ramirez D.P.M. Ordering Physician: Orlando Ramirez D.P.M. Date of Service: 08/13/24 Procedure(s): XR foot RT min 3V Accession Number(s): [id number] cc: Orlando Ramirez D.P.M.; Alberto Enamorado M.D. The [address] [address] Patient Name: URSZULA BULLARD MRN: [id number] date: 2005 Sex: F Assigned Patient Location: RAD Current Patient Location: RAD Accession/Order Number: [id number] Exam Date: 08/13/2024 10:45 Report Date: 08/13/2024 22:37 At the request of: ORLANDO RAMIREZ Procedure: XR foot RT min 3V EXAM: XR foot RT min 3V HISTORY: Right Foot Pain COMPARISON: None. FINDINGS/IMPRESSION: 1. No acute fracture or dislocation. 2. Normal alignment of the forefoot. 3. No significant joint degeneration. Electronically authenticated by: JORGE BISHOP Date: 08/13/2024 22:37 Dictated By: Jorge Bishop M.D. Signed By: 08/13/242238 DD/ 36 TD/TT: Education Dean: MADONNA HealthcareRadiology Study observation (narrative)MASON HealthcareXR FOOT RT MIN 3VOrdered By: Radiologist Radiology on 83-45-5352GHQG [employer] Work Phone: XR ANKLE RT MIN 3Von 25-14-[place], [place] [address] XRay Report Signed Patient: URSZULA CARRERA MR#: [id number] : 2005 Acct:[id number] Age/Sex: 18 / F ADM Date: 04/17/24 Loc: EC Attending Dr: Orlando Ramirez D.P.M. Ordering Physician: Orlando Ramirez D.P.M. Date of Service: 04/17/24 Procedure(s): XR ankle RT min 3V Accession Number(s): [id number] cc: Orlando Ramirez D.P.M.; Alberto Enamorado M.D. [place] [id number] Patient Name: URSZULA CARRERA MRN: [id number] date: 2005 Sex: F Assigned Patient Location: Current Patient Location: Accession/Order Number: [id number] Exam Date: 04/17/2024 08:34 Report Date: 04/18/2024 13:00 At the request of: ORLANDO RAMIREZ Procedure: XR ankle RT min 3V PROCEDURE: XR ankle RT min 3V COMPARISON: None. HISTORY: RIGHT ANKLE PAIN FINDINGS: BONES:No fracture, acute abnormality, or significant arthropathy. SOFT TISSUES:Negative. No visible soft tissue swelling. EFFUSION:None visible. OTHER: Negative. XR/XR ankle RT min 3V IMPRESSION: No acute radiographic abnormality Electronically authenticated by: LAST IGLESIAS Date: 04/18/2024 13:00 Dictated By: Last Iglesias M.D. Signed By: 04/18/24 1303 DD/ 1300 TD/TT: Education Dean:TBHRadiology, Radiologist, - 04/18/2024 [place] [address] XRay Report Signed Patient: URSZULA CARRERA MR#: [id number] : 2005 Acct:[id number] Age/Sex: 18 / F ADM Date: 04/17/24 Loc: EC Attending Dr: Orlando Ramirez D.P.M. Ordering Physician: Orlando Ramirez D.P.M. Date of Service: 04/17/24 Procedure(s): XR ankle RT min 3V Accession Number(s): [id number] cc: Orlando Ramirez D.P.M.; Alberto Enamorado M.D. The [place] [address] Patient Name: URSZULA CARRERA MRN: [id number] date: 2005 Sex: F Assigned Patient Location: Current Patient Location: Accession/Order Number: [id number] Exam Date: 04/17/2024 08:34 Report Date: 04/18/2024 13:00 At the request of: ORLANDO RAMIREZ Procedure: XR ankle RT min 3V PROCEDURE: XR ankle RT min 3V COMPARISON: None. HISTORY: RIGHT ANKLE PAIN FINDINGS: BONES:No fracture, acute abnormality, or significant arthropathy. SOFT TISSUES:Negative. No visible soft tissue swelling. EFFUSION:None visible. OTHER: Negative. XR/XR ankle RT min 3V IMPRESSION: No acute radiographic abnormality Electronically authenticated by: LAST IGLESIAS Date: 04/18/2024 13:00 Dictated By: Last Iglesias M.D. Signed By: 04/18/24 1303 DD/ 1300 TD/TT: Education Dean: MADONNA HealthcareRadiology Study observation (narrative)MADONNA HealthcareXR ANKLE RT MIN 3VOrdered By: Radiologist Radiology on 20-43-4577[facility] Work Phone: Lov [phone]: [phone] Received: 03/13/241857 Status: MELONIE Cui Num: [id number] Spec Type: Surgical Subm Dr: Lakhwinder Pyle DO Tissues: A Gallbladder (GALLBLADDER) Procedures: HE, Gross/Micro L3 Age/ Patient Sex Location Account Attending Physician SergoUrszula Clare 18/F LABELL [id number] Lakhwinder Pyle DO SPEC NUM: [id number] RECD: 03/13/24 STATUS: MELONIE CUI NUM: [id number] MADIHA: 03/13/24- SUBM DR: Lakhwinder Pyle DO ENTERED: 03/13/[address]: SPEC TYPE: Surgical DEPT: FLORES HAYES ENTERED BY: [id number] RECV BY: [id number] ORDERED: HE, Gross/Micro L3 ORDERED: HE, Gross/Micro [...] gallbladder wall measures 0.1 cm in thickness. Client Customer Manager sections are submitted in A1. CPT Codes 03554 Specimen: [id number] Received: 03/13/24 Status: MELONIE Cui Num: [id number] Spec Type: Surgical Subm Dr: Lakhwinder Pyle DO Tissues: A Gallbladder (GALLBLADDER) Procedures: Pedro Pablo REBOLLAR/Jeferson L3 Patient: CarreraUrszula [id number] (Continued) Signed (signature on file) Ruby Conley MD 03/18/[address] [place] [address] Physician GroupWV HEPATOBILIARY SCAN W PHARMACOLOGICAL INTERVENTIONon 84-66-0596Fdu[address] [address] Nuclear Medicine Report Signed Patient: URSZULA CARRERA Clare MR#: [id number] : 2005 Acct:[id number] Age/Sex: 18 / F ADM Date: 02/27/24 Loc: [place] Attending Dr: Alberto Enamorado M.D. Ordering Physician: Alberto Enamorado M.D. Date of Service: 02/27/24 Procedure(s): [place] hepatobiliary w pharm Accession Number(s): [id number] cc: Alberto Enamorado M.D. [place] [address] Patient Name: URSZULA CARRERA MRN: [id number] date: 2005 Sex: F Assigned Patient Location: [place] Current Patient Location: [place] Accession/Order Number: [id number] Exam Date: 02/27/2024 07:50 Report Date: 02/27/2024 14:15 At the request of: ALBERTO ENAMORADO Procedure: [place] hepatobiliary w pharm EXAMINATION: [place] hepatobiliary w pharm HISTORY: RIGHT UPPER QUADRANT [...] minutes. (Normal EF > 38%). OTHER: Negative. [place] hepatobiliary w pharm IMPRESSION: 1. Abnormal, low gallbladder ejection fraction, 37% (normal is greater than 38%). There is normal filling of the gallbladder and there is emptying of the gallbladder, but a slow rate. Consider biliary dyskinesia or partial obstruction. Electronically authenticated by: ABELINO TOBIAS Date: 02/27/2024 14:15 Dictated By: Abelino Tobias M.D. Signed By: 02/27/24 1417 DD/ 1415 TD/TT: Education Dean:TBHRadiology, Radiologist, - 02/27/2024 [place] [address] Nuclear Medicine Report Signed Patient: URSZULA CARRERA MR#: [id number] : 2005 Acct:[id number] Age/Sex: 18 / F ADM Date: 02/27/24 Loc: [place] Attending Dr: Alberto Enamorado M.D. Ordering Physician: Alberto Enamorado M.D. Date of Service: 02/27/24 Procedure(s): [place] hepatobiliary w pharm Accession Number(s): [id number] cc: Alberto Enamorado M.D. The [place] [address] Patient Name: URSZULA CARRERA MRN: [id number] date: 2005 Sex: F Assigned Patient Location: [place] Current Patient Location: [place] Accession/Order Number: [id number] Exam Date: 02/27/2024 07:50 Report Date: 02/27/2024 14:15 At the request of: ALBERTO ENAMORADO Procedure: [place] hepatobiliary w pharm EXAMINATION: [place] hepatobiliary w pharm HISTORY: RIGHT UPPER QUADRANT [...] minutes. (Normal EF > 38%). OTHER: Negative. [place] hepatobiliary w pharm IMPRESSION: 1. Abnormal, low gallbladder ejection fraction, 37% (normal is greater than 38%). There is normal filling of the gallbladder and there is emptying of the gallbladder, but a slow rate. Consider biliary dyskinesia or partial obstruction. Electronically authenticated by: ABELINO TOBIAS Date: 02/27/2024 14:15 Dictated By: Abelino Tobias M.D. Signed By: 02/27/24 1417 DD/ 1415 TD/TT: Education Dean: MADONNA HealthcareRadiology Study observation (narrative)MADONNA KumarWV HEPATOBILIARY SCAN W PHARMACOLOGICAL INTERVENTIONOrdered By: Radiologist Radiology on 67-88-3084YJEN Healthcare Work Phone: XR wrist RT min 3V*on 73-03-4443GS wrist RT min 3V* [facility] [place] [address] XRay Report Signed Patient: Urszula Carrera MR#: [id number] : 2005 Acct:[id number] Age/Sex: 18 / F ADM Date: 02/23/24 Loc: XDUC Room: Type: [facility] Attending Dr: Selena German [employer] Copies to: Selena German APRN Ordering Provider: [...] Mikey Gibson M.D.02/23/2024 5:10 PM Dictation Location: [facility] Transcribed By: [facility] 02/23/24 1710 Dictated By: Mikey Gibson II, MD 02/23/24 1708 Signed By: 02/23/24 171[facility] Physician GroupUS RIGHT UPPER QUADRANTon 55-66-6253Ggx[address] [address] Ultrasound Report Signed Patient: URSZULA CARRERA MR#: [id number] : 2005 Acct:[id number] Age/Sex: 18 / F ADM Date: 01/27/24 Loc: US Attending Dr: Alberto Enamorado M.D. Ordering Physician: Alberto Enamorado M.D. Date of Service: 01/27/24 Procedure(s): US right upper quadrant Accession Number(s): [id number] cc: Alberto Enamorado M.D. The [place] [id number] Patient Name: URSZULA CARRERA MRN: [id number] date: 2005 Sex: F Assigned Patient Location: US Current Patient Location: US Accession/Order Number: [id number] Exam Date: 01/27/2024 10:25 Report Date: 01/27/2024 11:25 At the request of: ALBERTO ENAMORADO Procedure: US right upper quadrant EXAM: [...] right upper quadrant. Electronically authenticated by: LAST WATSON Date: 01/27/2024 11:25 Dictated By: Last Watson M.D. Signed By: 01/27/24 1128 DD/ 1125 TD/TT: Education Dean:TBHRadiology, Radiologist, MD - 01/29/2024 [place] [address] Ultrasound Report Signed Patient: URSZULA CARRERA MR#: [id number] : 2005 Acct:[id number] Age/Sex: 18 / F ADM Date: 01/27/24 Loc: US Attending Dr: Alberto Enamorado M.D. Ordering Physician: Alberto Enamorado M.D. Date of Service: 01/27/24 Procedure(s): US right upper quadrant Accession Number(s): [id number] cc: Alberto Enamorado M.D. [place] [id number] Patient Name: URSZULA CARRERA MRN: [id number] date: 2005 Sex: F Assigned Patient Location: US Current Patient Location: US Accession/Order Number: [id number] Exam Date: 01/27/2024 10:25 Report Date: 01/27/2024 11:25 At the request of: ALBERTO ENAMORADO Procedure: US right upper quadrant EXAM: [...] right upper quadrant. Electronically authenticated by: LAST WATSON Date: 01/27/2024 11:25 Dictated By: Last Watson M.D. Signed By: 01/27/24 1128 DD/ 1125 TD/TT: Education Dean: MADONNA HealthcareRadiology Study observation (narrative)NOMS HealthcareUS RIGHT UPPER QUADRANTOrdered By: Radiologist Radiology on 33-22-1157DY[facility] Work Phone: no Panel InformationOrdered By: Iona Rosas on 24-24-6687AUIIY/Influenza Antigen (POC)[facility] HospitalCNOVon 80-60-1855MMIPAqmxdw Visit (OTPDMN) URSZULA CARRERA ([id number]) 5 F Date Time Provider Department 01/17/23 1:00 PM TIARA GALINDO OTPDMN During your visit today, we recorded the following information about you: Temperature Weight Height Last Period 97 degrees 58.3 kg 1.676 m 10/31/22 Tiara Galindo MD 01/17/2023 1:22 PM Signed PEDIATRIC OTOLARYNGOLOGY NEW CONSULT SERVICE DATE: 01/17/2023 REFERRING PROVIDER: Aby Villaseñor MD SUBJECTIVE DATE of : 2005 CHIEF [...] over after being seen by an outside technical marketing engineer with concerns for vocal cord movement issues. [...] or excoriation. Fog Mirror (more content not included)...[facility] URSZULA CARRERA ([id number]) 5 F Date Time Provider Department 01/17/23 11:00 AM CORIN BURROUGHS During your visit today, we recorded the following information about you: Temperature Pulse Blood pressure Weight 97.3 degrees 85/minute 113/66 58.4 kg Height 1.68 m Corin Burroughs MD 01/17/2023 12:[address] Villaseñor: We had the pleasure of seeing your patient Urszula Carrera in Pediatric Neurology at [facility] on January 17, 2023. As you know she is a 17 year old ambi-handed White female sent for consultation by Dr. Villaseñor regarding chronic headaches, also outside ENT raised [...] concussion opened a door into her head, [facility] ENT Spring 2022: scoped MEDICATIONS Singulair Oral [...] family history of develo (more content not included)...[facility] HEAD_NECKon 10-61-2688NR HEAD_NECKEXAM: US ST HEAD_NECK HISTORY: Localized enlarged lymph [...] representing lymph nodes Electronically authenticated by: LAST IGLESIAS Date: 2022-09-18 12:00NormalThA[facility] AUTO DIFFon 02-72-5865BSZG #0.0 103/ulNormal0.0-0.1The Marion HospitalComment on above:Performed By: #### CBC #### [facility] [address] [place] [address] [address] Dereje GlasgowBasophils/100 WBC (Bld)0.4 %Normal0.2-2.0[facility] Comment on above:Performed By: #### CBC #### [facility] [address] [place] [address] Dr. Dereje Sadler #0.1 103/ulNormal0.0-0.7The Marion HospitalComment on above: Performed By: #### CBC #### [facility] [address] [place] [address] [address] Dereje Garciaosinophils/100 WBC (Bld)1.7 %Normal0.9-7.0[facility] Comment on above:Performed By: #### CBC #### [facility] [address] [place] [address] Dr. Dereje Garciarythrocyte distribution width (RBC) [Ratio]11.9 %Pkgnyj23.0-15.0 The [facility] HospitalComment on above:Performed By: #### CBC #### [facility] [address] [place] [address] Dr. Dereje GlasgowHematocrit (Bld) [Volume fraction]43.1 %Zmusqt87.0-48.0[facility] EastComment on above:Performed By: #### CBC #### [facility] [address] [place] [address] [address] Dereje GlasgowHemoglobin (Bld) [Mass/Vol]15.0 g/hALiupdx43.0-16.0The Marion HospitalComment on above:Performed By: #### CBC #### [facility] [address] [place] [address] Dr. Dereje Moon #0.01 10e3/ulNormal0.00-0.03The Marion HospitalComment on above:Performed By: #### CBC #### [facility] [address] [place] [address] Dr. Dereje Moon %0.2 %Normal0.0-0.5The Marion HospitalComment on above: Performed By: #### CBC #### [facility] [address] [place] [address] Dr. Dereje Rosario #1.7 103/ulNormal1.2-3.8The [facility] HospitalComment on above:Performed By: #### CBC #### [facility] [address] [place] [address] Dr. Dereje Brownhocytes/100 WBC (Bld)31.7 %Hjdrnh11.5-60.0The [facility] HospitalComment on above:Performed By: #### CBC #### [facility] [address] [place] [address] Dr. Dereje Mehta DIFF REQNONormalThe Marion HospitalComment on above: Performed By: #### CBC #### [facility] [address] [place] [address] Dr. Dereje Lora (RBC) [Entitic mass]32.4 ksTbewns84.7-34.0The [facility] HospitalComment on above:Performed By: #### CBC #### [facility] [address] [place] [address] Dr. Dereje Lora (RBC) [Mass/Vol]34.8 g/jSRxkuqu02.9-35.2The [facility] HospitalComment on above:Performed By: #### CBC #### [facility] [address] [place] [address] Dr. Dereje Lora (RBC) [Entitic vol]93.1 eEEfnazt12.1-95.6The [facility] HospitalComment on above:Performed By: #### CBC #### [facility] [address] [place] [address] Dr. Dereje Stanley #0.6 103/ulNormal0.3-0.8The [facility] HospitalComment on above:Performed By: #### CBC #### [facility] [address] [place] [address] Dr. Dereje Belleocytes/100 WBC (Bld)11.0 %Normal1.7-12.0[facility] Comment on above:Performed By: #### CBC #### [facility] [address] [place] [address] Dr. Dereje Engle #3.0 103/ulNormal1.4-6.5The [facility] HospitalComment on above:Performed By: #### CBC #### [facility] [address] [place] [address] Dr. Dereje Suutrophils/100 WBC (Bld)55.0 %Hpdmou36.0-75.0The [facility] HospitalComment on above:Performed By: #### CBC #### [facility] [address] [place] [address] Dr. Dereje Lock mean volume (Bld) [Entitic vol]9.6 fLNormal9.5-13.5The Marion HospitalComment on above:Performed By: #### CBC #### [facility] [address] [place] [address] Dr. Dereje FrancoT283 103/gmAfweiq946-940Zuj Marion HospitalComment on above: Performed By: #### CBC #### [facility] [address] [place] [address] Dr. Dereje ColungaC4.63 106/ulNormal3.40-5.30The Marion HospitalComment on above:Performed By: #### CBC #### [facility] [address] [place] [address] Dr. Dereje OliverosBC5.4 103/ulNormal4.0-11.0The [facility] HospitalComment on above: Performed By: #### CBC #### [facility] [address] [place] [address] Dr. Dereje Tatum 06-74-4251HXL [Mass/Vol]mg/LNormal<=1.0The [facility] HospitalComment on above:Performed By: #### LIVER, CRP, BMP #### [facility] [address] [place] [address] Dr. Dereje Nathan PROFILEon 95-43-5654Nlasken [Mass/Vol]4.1 g/dLNormal3.4-5.0 The Marion HospitalComment on above:Performed By: #### LIVER, CRP, BMP #### [facility] [address] [place] [address] Dr. Dereje GlasgowAlbumin/Globulin [Mass ratio]1.4 {ratio}NormalThe Marion HospitalComment on above:Performed By: #### LIVER, CRP, BMP #### [facility] [address] [place] [address] Dr. Dereje Trevino [Catalytic activity/Vol]68 U/GJyxqlu06-896Lry [facility] HospitalComment on above:Performed By: #### LIVER, CRP, BMP #### [facility] [address] [place] [address] Dr. Dereje Davidson [Catalytic activity/Vol]16 U/PBxtoaq26-00Okl [facility] HospitalComment on above:Performed By: #### LIVER, CRP, BMP #### [facility] [address] [place] [address] Dr. Dereje Reis [Catalytic activity/Vol]15 U/VRzyhty05-83Jxy [facility] Hospitalment on above:Performed By: #### LIVER, CRP, BMP #### [facility] [address] [place] [address] Dr. Dereje Lazcano, CONJUGATED0.1 mg/dLNormal0.0-0.2[facility] Comment on above:Performed By: #### LIVER, CRP, BMP #### [facility] [address] [place] [address] Dr. Dereje GlasgowBilirubin [Mass/Vol]0.4 mg/dLNormal0.2-1.0[facility] Comment on above:Performed By: #### LIVER, CRP, BMP #### [facility] [address] [place] [address] Dr. Dereje GlasgowGlobulin (S) [Mass/Vol]2.9 g/dLNormalThe Marion HospitalComment on above:Performed By: #### LIVER, CRP, BMP #### [facility] [address] [place] [address] Dr. Dereje GlasgowProtein [Mass/Vol]7.0 g/dLNormal6.4-8.2[facility] Comment on above:Performed By: #### LIVER, CRP, BMP #### [facility] [address] [place] [address] Dr. Dereje GlasgowPROF CHEM 8 (BAS METB)on 22-80-7770Aumnb gap [Moles/Vol]13.4 mmol/LNormalRegency Hospital Cleveland EastComment on above:Performed By: #### LIVER, CRP, BMP #### [facility] [address] [place] [address] Dr. Dereje GlasgowCalcium [Mass/Vol]9.0 mg/dLNormal8.5-10.1[facility] Comment on above:Performed By: #### LIVER, CRP, BMP #### [facility] [address] [place] [address] Dr. Dereje GlasgowChloride [Moles/Vol]106 mmol/OIfbrwj99-644Ndh [facility] Comment on above:Performed By: #### LIVER, CRP, BMP #### [facility] [address] [place] [address] Dr. Dereje GlasgwoCO2 [Moles/Vol]23.4 mmol/XTesgqn49.0-32.0[facility] Comment on above:Performed By: #### LIVER, CRP, BMP #### [facility] [address] [place] [address] Dr. Yilan ChangCreatinine [Mass/Vol]0.83 mg/dLNormal0.55-1.02[facility] EastComment on above:Performed By: #### LIVER, CRP, BMP #### [facility] [address] [place] [address] [address] Dereje GlasgowGlucose [Mass/Vol]103 mg/bXJctviw36-103UmoRegency Hospital [facility] East Comment on above:Performed By: #### LIVER, CRP, BMP #### [facility] [address] [place] [address] [address] Dereje GlasgowPotassium [Moles/Vol]3.8 mmol/LNormal3.5-5.1[facility] Comment on above:Performed By: #### LIVER, CRP, BMP #### [facility] [address] [place] [address] Dr. Dereje GlasgowSodium [Moles/Vol]139 mmol/DDvtvfx786-960Tcx [facility] Comment on above:Performed By: #### LIVER, CRP, BMP #### [facility] [address] [place] [address] Dr. Dereje GlasgowUrea nitrogen [Mass/Vol]4.0 mg/dLCritically low6.4-19.3The [facility] HospitalComment on above:Performed By: #### LIVER, CRP, BMP #### [facility] [address] [place] [address] Dr. Dereje GlasgowUrea nitrogen/Creatinine [Mass ratio]4.8 mg/mgNormalThe Marion HospitalComment on above:Performed By: #### LIVER, CRP, BMP #### [facility] [address] [place] [address] Dr. Dereje Hendrix RATE WESTERGRENon 89-74-2152MQI RATE2 mm/hrNormal<=20The Marion HospitalComment on above:Performed By: #### SEDR #### [facility] [address] [place] [address] Dr. Dereje Dwyer Strepon 08-19-2022S. pyogenes Org specific cx Ql (Throat) NegativeNort LiveGO Other Qulacho Bishop [employer] Other 757-5644Wckif-54 PCR (CVDTB)on 93-75-2894DFBY-CoV-2 (COVID- 19) RNA DAVID+probe Ql (Unsp spec)DetectedCritically abnormalNOT DETECTEDThe Marion HospitalComment on above:Result Comment: This test is not yet approved or cleared by the [place] FDA. When there are no FDA-approved or cleared tests available, and other criteria are met, FDA can make tests available under an emergency access mechanism called an Emergency Use Authorization (EUA). The EUA for this test is supported by the [place] of Health and Human Service's (HHS's) declaration [...] no longer be used). Performed By: #### CVDTBH #### [facility] [address] [place] [address] Dr. Dereje GlasgowConikhild-19 PCR (CVDTB)on 42-01-1042DSDV-CoV-2 (COVID-19) RNA DAVID+probe Ql (Unsp spec)Not detectedNormalNOT DETECTEDThe [facility] Comment on above:Result Comment: This test is not yet approved or cleared by the [place] FDA. When there are no FDA-approved or cleared tests available, and other criteria are met, FDA can make tests available under an emergency access mechanism called an Emergency Use Authorization (EUA). The EUA for this test is supported by the [place] of Health and Human Service's (HHS's) declaration that circumstances exist to justify the emergency use of in vitro diagnostics for the detection and/or diagnosis of the virus that causes COVID- 19. This EUA will remain in effect (meaning [...] of clinical signs and symptoms consistent with SARS-CoV-2.Performed By: #### CVDTBH #### [facility] [address] [place] [address] Dr. Dereje GlasgowGROUP A STREP CULTUREon 03-22-2022. pyogenes Ag Ql (Unsp spec) Culture Observations: NEGATIVE FOR GROUP A STREPTOCOCCUS.NormalThe Marion HospitalComment on above: Performed By: #### SSCRN, GRASTCX #### [facility] [address] [place] [address] [address] Dereje GlasgowSTREPT SCREENon 34-02-9688QEOOU SCREEN ANegativeNormalNEGATIVEThe Marion HospitalComment on above:Performed By: #### SSCRN, GRASTCX #### [facility] [address] [place] [address] Dr. Dereje Santos Quick Testingon 97-20-3572ByfztfSfobfftaTgpen [employer] Other Quick Strepon 07-22-2021. pyogenes Org specific cx Ql (Throat)NegativeCanton Live[employer] Other quick InvisibleCRM Other PULMONARY FUNCTION (450)on 92-07-6458DKGZJVAAJ FUNCTION (450)[address] [address] PULMONARY FUNCTION PATIENT NAME: URSZULA CARRERA : 2005 MED REC NO: [id number] ROOM: ACCOUNT NO: [id number] ADMIT DATE: 07/18/2019 PROVIDER: Joanie Page DATE OF PROCEDURE: 07/18/2019 INTERPRETATION/FINDINGS: Evaluation of the pulmonary function studies performed [...] exercise-induced bronchial reactivity. JOANIE PAGE RR/V_CGVSS_I Doc#: [id number] CC: Nila Enamorado [facility] Vital Signs Date TimeVital SignValuePerforming BjxcilryzLqvpbfwq24-14-6983 10:04-0400Body oxwlwo281.18 cmAlberto Enamorado MD Work Phone: [phone] [place], [place] [address]10-20-2025 10:04-0400 Body mass index (BMI) [Percentile] Per age and sex80.3 %Alberto Enamorado MD Work Phone: [phone])[address]10-20-2025 10:04-0400 Body mass index (BMI) [Ratio]25.3 kg/m2Alberto Enamorado MD Work Phone: 1(021)631-[address] [place], [place] 4885610-20-2025 10:04-0400 Body eluhdkuyedd58.1 [degF]Alberto Enamorado MD Work Phone: 1(094)099-[address] [place], [place] 4885610-20-2025 10:04-0400 Body pgzrok60.48 kgAlberto Enamorado MD Work Phone: 1(880)572-[facility]10-20-2025 10:04-0400 Diastolic blood eeuqkotq54 mm[Hg]Alberto Enamorado MD Work Phone: 1(356)005-[address] [place], [place] 4885610-20-2025 10:04-0400 Heart tyen363 /minAlberto Enamorado MD Work Phone: 1(419)[address]10-20-2025 10:04-0400 Respiratory rate20 /minAlberto Enamorado MD Work Phone: 1(109)821-[address] [place], [place] 4885610-20-2025 10:04-0400 SaO2% (BldA) [Mass fraction]98 %Alberto Enamorado MD Work Phone: 1(655)258-[address] [place], [place] 9752210-20-2025 10:04-0400 Systolic blood nkrzmqyr247 mm[Hg]Alberto Enamorado MD Work Phone: 1(091)[address]07-24-2025 14:44-0400 Body aszoqa909.2 cmAlberto Enamorado MD Work Phone: [facility]Ssoiydupkq49-13-6866 14:44-0400Body mass index (BMI) [Ratio]24.75 kg/m2Alberto Enamorado MD Work Phone: [facility] HospitalLvcjqkrjmn45-43-8665 14:44-0400Body temperature 97.81 [degF]Alberto Enamorado MD Work Phone: [facility] HospitalYdiujkirel59-43-9912 14:44-0400Body xojbxn41.67 kgAlberto Enamorado MD Work Phone: [facility] HospitalYiknwbwxqk06-23-0213 14:44-0400Diastolic blood mm[Hg]Alberto Enamorado MD Work Phone: [facility] HospitalFbwcxjjrxr46-85-7118 14:44-0400Heart xuci946 /min Alberto Enamorado MD Work Phone: [facility] HospitalEkfidjuiwo28-09-4567 14:44-0400Respiratory rate20 /minAlberto Enamorado MD Work Phone: [facility] HospitalLdswasmnmy99-76-3420 14:44-4764WyO4% (BldA) [Mass fraction]98 %Alberto Enamorado MD Work Phone: [facility] HospitalMsehghgumm09-11-7318 14:44-0400Systolic blood axyardmt130 mm[Hg]Alberto Enamorado MD Work Phone: [facility] HospitalXdrixmhqwv14-09-8045 14:10-0400Body temperature 98.4 [degF]Vic Hickman DPM Work Phone: bon [facility]04-30-2025 14:10-0400Diastolic blood nuiuiyjf81 mm[Hg]Vic Hickman DPM Work Phone: bon [facility]04-30-2025 14:10-0400Heart rate91 /minVic Hickman DPM Work Phone: bon [facility]04-30-2025 14:10-0400 Respiratory rate14 /minJoph Hickman DPM Work Phone: bon [facility]04-30-2025 14:10-4156UuP5% (BldA) [Mass fraction]100 %Vic Hickman DPM Work Phone: bon [facility]04-30-2025 14:10-0400Systolic blood vypkureu011 mm[Hg]Vic Hickman DPM Work Phone: bon [facility]04-30-2025 09:27-0400Body .2 cmJoladonna Hickman DPM Work Phone: bon [facility]04-30-2025 09:27-0400Body mass index (BMI) [Ratio]23.96 kg/e3Nzywkt Hickman DPM Work Phone: bon [facility]04-30-2025 09:27-0400Body wfvxif59.4 kgJoladonna Hickman DPM Work Phone: bon [facility]04-23-2025 09:31-0400Body evqegh084.2 cmAlberto Enamorado MD Work Phone: noSaint [facility] CenterLzfwxaqgpn66-85-0993 09:31-0400Body mass index (BMI) [Ratio]24.43 kg/m2Alberto Enamorado MD Work Phone: [facility] HospitalZhtcxyzymv46-60-1530 09:31-0400Body temperature 98.01 [degF]Alberto Enamorado MD Work Phone: [facility] HospitalOtmfwnuked11-52-9302 09:31-0400Body onptky66.76 kgAlberto Enamorado MD Work Phone: [facility] HospitalBujqcyxyjg77-47-4640 09:31-0400Diastolic blood rpwbsylv80 mm[Hg]Alberto Enamorado MD Work Phone: [facility] HospitalEyxxbdkfgk59-40-5171 09:31-0400Heart rate93 /min Alberto Enamorado MD Work Phone: [facility] HospitalJulknlfhgk40-08-6996 09:31-0400Respiratory rate20 /minAlberto Enamorado MD Work Phone: [facility] HospitalPhhvxrjrdx39-07-6699 09:31-8151VwV7% (BldA) [Mass fraction]99 %Alberto Enamorado MD Work Phone: [facility] HospitalNverxdhgzb98-66-8763 09:31-0400Systolic blood alrrpakd190 mm[Hg]Alberto Enamorado MD Work Phone: [facility] HospitalFmcclzgkjs67-84-5333 11:49-0500Body tupvsz617.2 cmAlberto Enamorado MD Work Phone: [facility] HospitalBsaxlqdity51-21-2800 11:49-0500Body mass index (BMI) [Ratio]23.65 kg/m2Alberto Enamorado MD Work Phone: [facility] HospitalZcbnvzkjsu94-98-1914 11:49-0500Body temperature 97.81 [degF]Alberto Enamorado MD Work Phone: [facility] HospitalGfvtjmliin84-43-2073 11:49-0500Body .49 kgAlberto Enamorado MD Work Phone: [facility] HospitalRfylbsxfnk73-46-2442 11:49-0500Diastolic blood iwbuusce20 mm[Hg]Alberto Enamorado MD Work Phone: [facility] HospitalVmsnqthjna07-26-3383 11:49-0500Heart wvoc592 /min Alberto Enamorado MD Work Phone: 1(733)373-[address] [place], [place] [address]Ovjanwqstu99-46-6756 11:49-0500Respiratory rate18 /minAlberto Enamorado MD Work Phone: 1(663)[facility] [place], [place] [address]Zsdlulunpo50-50-3469 11:49-2926LdK0% (BldA) [Mass fraction]99 %Alberto Enamorado MD Work Phone: 1(404)[facility] [place], [place] [address]Vstrwjeilj52-00-2538 11:49-0500Systolic blood gjteihis984 mm[Hg]Alberto Enamorado MD Work Phone: 1(126)[address] [place], [place] 2460612-10-2024 11:32-0500Body zdhzsi216.2 cmAlberto Enamorado MD Work Phone: 1(206)[address] [place], [place] 2460612-10-2024 11:32-0500Body mass index (BMI) [Percentile] Per age and sex71.61 %Alberto Enamorado MD Work Phone: 1(433)[address] [place], [place] 2460612-10-2024 11:32-0500Body mass index (BMI) [Ratio]23.65 kg/m2Alberto Enamorado MD Work Phone: 1(441)575-[address] [place], [place] [address]Hgzdyccbpo41-11-4049 11:32-0500Body temperature 97.11 [degF]Alberto Enamorado MD Work Phone: 1(309)174-[address] [place], [place] [address]Cmvoyimfeh51-67-3639 11:32-0500Body gcbseh50.49 kgAlberto Enamorado MD Work Phone: 1(954)[address] [place], [place] 2460612-10-2024 11:32-0500Diastolic blood miodrcaq00 mm[Hg]Alberto Enamorado MD Work Phone: 1(702)[address]135[address] [place], [place] [address]Sprwotjuxt75-44-1617 11:32-0500Heart exaz568 /min Alberto Enamorado MD Work Phone: 1(872)[facility] [place], [place] [address]Bzfwegzucv64-01-4057 11:32-0500Respiratory rate22 /minAlberto Enamorado MD Work Phone: 1(070)[facility] [place], [place] [address]Xiydzbrctm05-46-1698 11:32-2685CtV9% (BldA) [Mass fraction]98 %Alberto Enamorado MD Work Phone: [facility] HospitalGwkatidodt47-60-3504 11:32-0500Systolic blood dkwmiwdi465 mm[Hg]Alberto Enamorado MD Work Phone: [facility] HospitalSlqjzjdfht16-37-5952 15:50-0400Body akkwdf261.2 cmAlberto Enamorado MD Work Phone: 1(102)[facility] [place], [place] [address]Cyjknvxmdm54-32-4573 15:50-0400Body mass index (BMI) [Percentile] Per age and sex69.49 %Alberto Enamorado MD Work Phone: 1(198)120645[address] [place], [place] [address]Dhmjxnvemp10-63-6959 15:50-0400Body mass index (BMI) [Ratio]23.34 kg/m2Alberto Enamorado MD Work Phone: 1(051)4-[address] [place], [place] [address]Bqstcugbej92-82-9334 15:50-0400Body temperature 97.5 [degF]Alberto Enamorado MD Work Phone: 1(202)2-[address] [place], [place] [address]Noamqflfae22-76-9661 15:50-0400Body txsiel82.59 kgAlberto Enamorado MD Work Phone: [facility] HospitalHdhmscyroh82-94-1704 15:50-0400Diastolic blood ywyaeslr85 mm[Hg]Alberto Enamorado MD Work Phone: 1(571)435-[address] [place], [place] [address]Ydabkjrgrv92-80-5222 15:50-0400Heart jsxl477 /min Alberto Enamorado MD Work Phone: 1(190)1-[address] [place], [place] [address]Yrfunknuff55-66-2760 15:50-0400Respiratory rate22 /minAlberto Enamorado MD Work Phone: [facility] HospitalKvzkkqaetq81-48-8546 15:50-4663UnS7% (BldA) [Mass fraction]98 %Alberto Enamorado MD Work Phone: 1(481)020-[address] [place], [place] [address]Xrvjlatknk27-07-0524 15:50-0400Systolic blood bygebzfl551 mm[Hg]Alberto Enamorado MD Work Phone: 1(952)[address] [place], [place] 2460607-19-2024 16:24-0400Body vmnoti554.18 cmMD Alberto Enamorado Work Phone: 1(917)281-[address] [place], [place] 4885607-19-2024 16:24-0400 Body mass index (BMI) [Percentile] Per age and sex59.3 %MD Alberto Enamorado Work Phone: 1(487)[address]07-19-2024 16:24-0400 Body mass index (BMI) [Ratio]22.2 kg/m2MD Alberto Enamorado Work Phone: 1(614)[address]07-19-2024 16:24-0400 Body xzxwblxodnn91 [degF]MD Alberto Enamorado Work Phone: 1(203)[address]07-19-2024 16:24-0400 Body .46 kgMD Alberto Enamorado Work Phone: 1(838)[address]46 [address]07-19-2024 16:24-0400 Diastolic blood arjniaay10 mm[Hg]MD Alberto Enamorado Work Phone: 1(575)[address]46 [address]07-19-2024 16:24-0400 Heart rate79 /minMD Alberto Enamorado Work Phone: 1(635)[address]07-19-2024 16:24-0400 Respiratory rate18 /minMD Alberto Enamorado Work Phone: 1(908)[address]07-19-2024 16:24-0400 SaO2% (BldA) [Mass fraction]99 %MD Alberto Enamorado Work Phone: 1(526)458-[address] [place], [place] 9752207-19-2024 16:24-0400 Systolic blood rlfiqoei516 mm[Hg]MD Alberto Enamorado Work Phone: 1(038)828-[address] [place], [place] 4885602-25-2024 14:14-0500 Body zcwzoc451.18 cm[facility] 14:14-0500Body mass index (BMI) [Percentile] Per age and sex39.4 %[facility]02-25-2024 14:14-0500Body mass index (BMI) [Ratio]20.5 kg/s6NarhvxmnzAv[facility]02-25-2024 14:14-0500Body .59 kgAv[facility]02-25-2024 14:14-0500Heart rate82 /minAv[facility]02-25-2024 14:14-0500Respiratory rate16 /[facility]02-25-2024 14:14-0554JsO4% (BldA) [Mass fraction]98 %[facility]01-13-2023 16:40-0500Body .64 cmAmber Rosas Other [employer] Other 01-13-2023 16:40-0500Body mass index (BMI) [Ratio] 20.98 kg/z6Ukvvfkatie Rosas Other [employer] Other 01-13-2023 16:40-0500Body gdpxjxuujvw95 [degF]Iona Ralph Other [employer] Other 01-13-2023 16:40-0500Body ixyctb31.97 kgIona Rosas Other [employer] Other 01-13-2023 16:40-0500Respiratory rate18 /aaronIraiskatie Rosas Other [employer] Other 01-13-2023 16:40-7183ViW4% (BldA) [Mass fraction]99 % Iona Ralph Other [employer] Other 12-16-2021 15:00-0500Body emfsin103.45 Dianelys Lynch Other [employer] Other 12-16-2021 15:00-0500Body mass index (BMI) [Ratio]24.5 kg/e6UrjszsgsuHaven Lynch Other [employer] Other 12-16-2021 15:00-0500Body lzgntsxygbz12.4 [degF] Haven Lynch Other [employer] Other 12-16-2021 15:00-0500Body sbzodn06.03 kgStkay Lynch Other [employer] Other 12-16-2021 15:00-0500Respiratory rate18 /minSrandolph Lynch Other [employer] Other 12-16-2021 15:00-0583BjD4% (BldA) [Mass fraction]98 % Haven Lynch Other [employer] Other Encounters Encounter DateEncounter TypeCare ProviderFacilityStart: 05-26-2025 End: 09-92-6006jdsxpfbxxtWdnp Naderer MD Work Phone: -[facility] ClydeStart: 05-26-2025 End: 44-08-2340Jspigqj encounter procedureAlberto Enamorado MD-[facility] [place] Work Phone: Start: 03-26-2025 End: 94-27-1117Jswjuxysa Result EncounterGeneric External Data ProviderNOMS External Department UnsolicitedStart: 03-26-2025 End: 13-15-5475Pvvwagjrc Result EncounterGeneric External Data ProviderNOMS External Department UnsolicitedStart: 03-25-2025 End: 67-34-4527psqqirlmrdJSDWArron Mckinnon [facility]tart: 03-14-2025 End: 00-43-1057Vhtgtlfiu Result EncounterAlberto Enamorado MD Work Phone: noms External Department UnsolicitedStart: 03-14-2025 End: 92-00-8971Wqchmmjfx Result EncounterAlberto Enamorado MD Work Phone: noms External Department UnsolicitedStart: 02-27-2025 End: 55-89-1812Sbyeyx outpatient visit 25 minutesMarrosalie Enamorado MD Work Phone: noms CWM FMComment on above:Palpitation (Primary Dx); Migraine without aura and without status migrainosus, not intractable ; ROXANA (generalized anxiety disorder) ; Mild intermittent asthma without complication (HCC); Seasonal allergic rhinitis due to pollenStart: 02-27-2025 End: 62-54-1999upazeikelaYPFF NADERERNot AvailableStart: 02-27-2025 End: 74-52-3237Fqylhj Parag Enamorado MD Work Phone: noms CWM FMStart: 02-27-2025 End: 67-06-7003Skfqrk flowsNikolay Enamorado MD Work Phone: noms CWM FMStart: 01-05-2025 End: 99-95-0405Hrcpnrgcd department patient visitRinggold [facility] Hospital HospitalStart: 12-04-2024 End: 01-37-3183Ucsatxosb Result EncounterGeneric External Data ProviderNOMS External Department UnsolicitedStart: 12-04-2024 End: 81-34-0505Mbhwutydr Result EncounterGeneric External Data ProviderNOMS External Department UnsolicitedStart: 12-04-2024 End: 63-64-8155Nqfctlmmhv hospital visit by physicianVic Hickman DPM Work Phone: staz ORStart: 11-27-2024 End: 25-45-3464Zoginy flowsNikolay Enamorado MD Work Phone: noms CWM FMStart: 11-27-2024 End: 03-13-1621Ufbaqd Parag Enamorado MD Work Phone: noms CWM FMStart: 11-27-2024 End: 77-69-8754Lxusei outpatient visit 15 minutesAlberto Enamorado MD Work Phone: noms CWM FMComment on above:RUQ pain (Primary Dx); EndometriosisStart: 11-27-2024 End: 98-75-9790yspptqwneeVTOQ NADERERNot AvailableStart: 11-11-2024 End: 12-07-5591qkyeupebddQQNM NADERERPHighland District Hospitaltart: 10-07-2024 End: 60-10-9415Dlyuvr Parag Enamorado MD Work Phone: noms CWM FMStart: 10-07-2024 End: 74-55-3454Gwtmfl Parag Enamorado MD Work Phone: noms CWM FMStart: 10-07-2024 End: 20-70-6909Opijcabie Result EncounterAlberto Enamorado MD Work Phone: noms External Department UnsolicitedStart: 10-07-2024 End: 05-90-4070Cejgxk outpatient visit 25 minutesAlberto Enamorado MD Work Phone: noms CWM FMComment on above:ROXANA (generalized anxiety disorder) (CMS/HCC) (Primary Dx); Migraine without aura and without status migrainosus, not intractable (CMS/HCC); Mild intermittent asthma without complication (CMS/HCC); Seasonal allergic rhinitis due to pollen; RUQ pain; EndometriosisStart: 10-07-2024 End: 43-51-0903plpiktaxzrAMWN NADERERNot AvailableStart: 08-13-2024 End: 31-93-0325Bmvoeesvh Result EncounterGeneric External Data ProviderNOMS External Department UnsolicitedStart: 08-13-2024 End: 77-76-7407Hjebryupt Result EncounterGeneric External Data ProviderNOMS External Department UnsolicitedStart: 07-16-2024 End: 87-87-9077Qnfafg Parag Enamorado MD Work Phone: NOM[facility] CWM FMStart: 07-16-2024 End: 05-53-8425Vzvpyp Parag Enamorado MD Work Phone: NOUM CWM FMStart: 07-16-2024 End: 65-57-8191Cdzwgi outpatient visit 15 minutesAlberto Enamorado MD Work Phone: noms CWM FMComment on above:ROXANA (generalized anxiety disorder) (CMS/HCC) (Primary Dx)Start: 07-16-2024 End: 73-33-5754sjouexmeeiTZHP NADERERNot AvailableStart: 05-23-2024 End: 31-43-1463Oszgnx outpatient visit 15 minutesAlberto Enamorado MD Work Phone: noms CWM FMComment on above:Acute bronchitis due to other specified organisms (Primary Dx)Start: 05-23-2024 End: 05-26-0659ibmflpcikdFLRX NADERERNot AvailableStart: 05-23-2024 End: 42-00-2438Qgedut Parag Enamorado MD Work Phone: NODR CWM FMStart: 05-23-2024 End: 44-81-5586Oefszm Parag Enamorado MD Work Phone: NOXE CWM FMStart: 04-18-2024 End: 09-59-5190Cuqlyixck Result EncounterGeneric External Data ProviderNOMS External Department UnsolicitedStart: 04-18-2024 End: 77-74-8401Ciqutjuye Result EncounterGeneric External Data ProviderNOMS External Department UnsolicitedStart: 03-20-2024 End: 54-35-7094seojrtqwlpUKEK DUCKETTNot AvailableStart: 03-12-2024 End: 48-69-6548xleoqtnvviJQ Marc Naderer Work Phone: [facility] Work Phone: Start: 03-12-2024 End: 06-42-8355Utilxnlz ReferredMD Alberto Enamorado Work Phone: [facility] Path Spec [facility]kou HospStart: 03-06-2024 End: 93-29-2365sgevrdzxziRAIB Cortes AvailableStart: 02-27-2024 End: 31-48-9000Ijxscnyng Result EncounterAlberto Enamorado MD Work Phone: noms External Department UnsolicitedStart: 02-27-2024 End: 78-00-8410Pzknbrfyw Result EncounterAlberto Enamorado MD Work Phone: noms External Department UnsolicitedStart: 02-23-2024 End: 95-55-6170psohpjwawiZX Marc Naderer Work Phone: [facility] Work Phone: Start: 02-23-2024 End: 42-93-5134Wjjsdjx encounter procedureMD Alberto Enamorado Work Phone: [facility] [place] Work Phone: Start: 01-27-2024 End: 76-58-3475Jdzrvoeqz Result EncounterAlberto Enamorado MD Work Phone: noms External Department UnsolicitedStart: 01-27-2024 End: 06-81-2485Lxxuephlx Result EncounterAlberto Enamorado MD Work Phone: noms External Department UnsolicitedStart: 10-01-2023 End: 06-88-7637xzmvihghieWnugeyzvzSt. [facility]'s Hospital Work Phone: Start: 10-01-2023 End: 11-44-5786Zmjmiby encounter procedureCristhian Physician Group-[facility] [place] Work Phone: Start: 52-01-6621Dkjvxxm encounter procedureAlberto Enamorado MD Work Phone: noms HealthcareStart: 01-17-2023 End: 87-47-3852ghvhvvyxutNNSOL SHARIFFFacility:[facility] Hospitaltart: 09-17-2022 End: 20-98-0489qumdzqeiydTE MARC A NADERERFacility:U1Lgtpr: 08-19-2022 End: 41-78-9857qoazbfblafUlrcc Keller Other [facility] [employer] Other Start: 38-43-4588Rztlpo outpatient visit 25 minutes Iona JarrettlerFPG Urgent Care ClydeStart: 03-24-2022 End: 17-10-0359zbjxmypnltVEF KOBE AICHHOLZFacility:P3Lzcld: 03-22-2022 End: 44-79-5820dhlxayhyylLW ALBERTO Maximus NADERERFacility:G9Ybdsi: 07-22-2021(URG) Urgent Care VisitStephanie LexusaultFPG Urgent Care ClydeStart: 07-22-2021 End: 99-90-3726qdyaooxcxfJszspspji Breault Other [place] [employer] Other Start: 07-18-2019 End: 16-26-6888Gmrzspf encounter procedureRAMCity [facility] Procedures DateProcedureProcedure DetailPerforming ClinicianStart: 72-85-6346DE ANKLE RT MIN 3VGeneric External Data ProviderStart: 08-07-1786DRT CBC WITH AUTO Sung Enamorado MD Work Phone: Start: 45-41-3104MWA MAGNESIUMAlberto Enamorado MD Work Phone: Start: 42-74-5363TFZ CMP (CMP) (FOR REMOTE [facility] USE) Alberto Enamorado MD Work Phone: Start: 43-55-4164RFQ W/REFLEX T4Alberto Enamorado MD Work Phone: Start: 40-92-0362GS CALCANEUS RIGHT (MIN 2 VIEWS) Generic External Data ProviderStart: 37-09-0622CK FOOT RIGHT (MIN 3 VIEWS) Generic External Data ProviderStart: 59-80-0297TQMLSB FOR SURGICAL PROCEDURES Generic External Data ProviderStart: 58-04-2681Ieknbirahvn during operation Vic Hickman DPM Work Phone: start: 18-53-3249EAX HCG SERUM,QUALITATIVEGeneric External Data ProviderStart: 01-41-2988Moqdvdpljraydarius Matamoros MD Work Phone: Start: 00-30-7935XHP CBC WITH AUTO DIFFMarrosalie Enamorado MD Work Phone: Start: 80-16-2662FC FOOT RT MIN 3VGeneric External Data ProviderStart: 58-34-4699SM ANKLE RT MIN 3VGeneric External Data Provider Start: 69-69-4922JV HEPATOBILIARY SCAN W PHARMACOLOGICAL INTERVENTIONAlberto Enamorado MD Work Phone: Start: 75-97-7634Ulizm X-ray of right wristMD Alberto Enamorado Work Phone: Start: 23-18-9979OW RIGHT UPPER QUADRANTAlberto Enamorado MD Work Phone: Start: 01-30-3981SYHSY/Influenza Antigen (POC)Start: 52-25-7916Whgfxasj provocation eval chicken cleaner spmtry w/admn agtRAMALINGA PAGE Plan of Treatment DateCare ActivityDetailAuthorStart: 05-26-2025 End: 33-40-9219Kfxcwax encounter ztrbfddor09/20/2025 9:45 AM EDT Office Visit [facility] [address] [place] [address] Alberto Enamorado MD [address] [place] [address] [facility] FMStart: 98-01-4305Ulkzebxzr vaccinationInfluenza Vaccine (#1)[facility] HealthcareStart: 02-27-2025 End: 85-85-3906Efgsscp encounter procedureNOMS CWM FMComment on above:Arrived Start: 02-27-2025 End: 65-60-8613UGK W Auto Differential panel - BloodCBC and differential Lab Routine Palpitation Expected: 02/27/2025 (Approximate), Expires: 02/27/2026[facility] Work Phone: Comment on above:Expected: 02/27/2025 (Approximate), Expires: 02/27/2026Start: 02-27-2025 End: 16-78-8039Gjhhvefeynxnz metabolic 2000 panel - Serum or PlasmaComprehensive metabolic panel Lab Routine Palpitation Expected: 02/27/2025 (Approximate), Expires: 02/27/2026[facility] HealthcareComment on above:Expected: 02/27/2025 (Approximate), Expires: 02/27/2026Start: 02-27-2025 End: 41-48-5890Novznouih [Mass/volume] in Serum or PlasmaMagnesium Lab Routine Palpitation Expected: 02/27/2025 (Approximate), Expires: 02/27/2026[facility] HealthcareComment on above:Expected: 02/27/2025 (Approximate), Expires: 02/27/2026Start: 02-27-2025 End: 67-31-6949TRZ W/REFLEX TO FT4TSH W/REFLEX TO FT4 Lab Routine Palpitation Expected: 02/27/2025 (Approximate), Expires: 02/27/2026[facility] HealthcareComment on above:Expected: 02/27/2025 (Approximate), Expires: 02/27/2026Start: 12-30-2024 Meningococcal B vaccine (2 of 2 - Bexsero SCDM 2-dose series)Meningococcal B vaccine (2 of 2 - Bexsero SCDM 2-dose series)[facility]: 11-27[facility]2024 End: 57-17-0735Pjpvbae encounter thmtpppvy91/23/2025 9:15 AM EDT Office Visit [facility] [address] [place] [address] Alberto Enamorado MD [address] [place] [address] HeriPA CATHERINE FMComment on above:ArrivedStart: 10-07-2024 End: 09-26-5528Hcqob metabolic 1998 panel - Serum or PlasmaBasic metabolic panel Lab Routine RUQ pain Expected: 10/07/2024 (Approximate), Expires: 10/07/2025 [facility] Work Phone: Comment on above:Expected: 10/07/2024 (Approximate), Expires: 10/07/2025Start: 10-07-2024 End: 57-14-0535SRH W Auto Differential panel - BloodCBC and differential Lab Routine RUQ pain Expected: 10/07/2024 (Approximate), Expires: 10/07/2025[facility] HealthcareComment on above:Expected: 10/07/2024 (Approximate), Expires: 10/07/2025Start: 10-07-2024 End: 18-55-3311Hlaojjv function 2000 panel - Serum or PlasmaHepatic function panel Lab Routine RUQ pain Expected: 10/07/2024 (Approximate), Expires: 10/07/2025N[facility] HealthcareComment on above:Expected: 10/07/2024 (Approximate), Expires: 10/07/2025Start: 10-07-2024 End: 40-54-7535Bobjfbu encounter procedureNOMS CWM FMComment on above:Arrived Start: 29-14-1174Htlnvaxhduss 0-49 years Vaccine (1 of 2 - PCV)Pneumococcal 0-49 years Vaccine (1 of 2 - PCV)[facility]: [facility] End: 38-80-3203Oowlstr encounter ldyzzejzn83/10/2024 11:30 AM EST Office Visit [facility] [address] [place] [address] Alberto Enamorado MD [address] [place] [id number] ArrivedNOMS CWM FMComment on above:ArrivedStart: 05-23-2024 End: 69-56-1163Fmfhamh encounter soonzyecc04/17/2024 4:00 PM EDT Office Visit [facility] [address] [place] [address] Alberto Enamorado MD [address] [place] [address] ArrivedNOMS [facility] FMComment on above:ArrivedStart: 50-72-1567Oyjzxuogf vaccinationInfluenza Vaccine (#1)[facility] HealthcareStart: 29-08-0663Nkehkgbap C screeningHepatitis C screenBon [facility] HealthStart: 74-06-4390Pblbnobaq for Chlamydia trachomatisChlamydia/GC screenBon [facility] Depaul Medical CenterStart: 07-91-6605ODH screeningHIV screenBon Secours Depaul Medical CenterStart: 81-75-7712QXR vaccine (1 - 3-dose series)HPV vaccine (1 - 3-dose series)[facility] CenterStart: 21-48-8358Mxwwlwqrsn ScreenDepression [facility]Start: 91-40-7979TXyZ/Tdap/Td vaccine (6 - Tdap)DTaP/Tdap/Td vaccine (6 - Tdap)[facility] End: 15-01-4416Cnsnn glucose - POCTBlood glucose - POCT Point of Care Testing Routine One Time for 1 Occurrences starting 12/04/2024 until 12/04/2024on [facility] HealthComment on above:One Time for 1 Occurrences starting 12/04/2024 until 12/04/2024 End: 20-38-1364XQCRRSBD PACU OXYGEN THERAPY PROTOCOLInitiate PACU Oxygen Therapy Protocol Respiratory Care Routine Continuous until discontinued starting 12/04/2024 [facility]Comment [facility] above:Continuous until discontinued starting 12/04/2024Oxygen therapy [Minimum Data Set]Initiate Oxygen Therapy Protocol Respiratory Care Routine As Needed until discontinued starting 11/07 [facility] Work Phone: Comment on above:As Needed until discontinued starting 12/04/2024 End: 95-46-0030Ywpndocgj, urine POCTPregnancy, urine POCT Point of Care Testing Routine One Time for 1 Occurrences starting 12/04/2024 until 5Bon [facility] CenterVivisimoMountain States Health AllianceComment on above:One Time for 1 Occurrences starting 12/04/2024 until 12/04/2024 End: 31-66-2843HI Calcaneus - right 2 ViewsBon eHealth SystemsMountain States Health AllianceComment on above:Once for 1 Occurrences starting 12/04/2024 until 12/04/2024 End: 35-80-8201HM Foot - right 3 [facility] Work Phone: comment on above:Once for 1 Occurrences starting 12/04/2024 until 12/04/2024 Immunizations Immunization DateImmunizationNotesCare VdgavmbeJyzcvzai48-41-2027mfnerzrol virus vaccine, unspecified formulationAlberto Enamorado MD Work Phone: noSaint [facility] Medical CenterZcsylrxdmc48-37-0714qzifaffuu virus vaccine, unspecified formulationAlberto Enamorado MD Work Phone: [facility] HospitalEcsvgnabeg57-23-0265lsppfaqlu, injectable, quadrivalent, preservative freeVic Hickman DPM Work Phone: bon [facility] HealthWjlqlf75-75-4881yxmshucnk virus vaccine, unspecified formulationVic Hickman DPM Work Phone: b[facility] Payers DatePayer CategoryPayerPolicy [id number] Cross Blue Shield [id number] [facility] [id number].44246-49-1354Habtpvb [id number] [id number] 2.840.1.770317.3.579.2.513858-86-4826Qnigjba [id number] 2.840.1.255474.3.57[id number] 2.840.1.890276.3.57[id number] 2.840.1.130397.3.57[id number] 2.0.1.109227.3.57[id number] 2.840.1.129526.3.57[id number] 2.0.1.982004.3.57[id number] 2..1.365674.3.57[id number] 2..1.213970.3.57[id number] 2.0.1.714255.3.57[id number] 2.0.1.039406.3.57[id number] 2.840.1.289195.3.57[id number] 2..1.676630.3.57[id number] 2.840.1.287243.3.579.2.[id number] Cross Blue Shield [id number] 2.[id number] 09.22.840.1.441183.3.579.2.531 [id number] 09.22.840.1.621638.3.579.2.531 Social History DateTypeDetailFacilityUnknown if ever smokedNorth Live[employer] Other Start: 09-05-2023 End: 73-83-9498Mxt Assigned At [facility] HealthcareStart: 06-01-2023 End: 22-50-0436Iqhuqiz smoking status NHISNever smoked tobacco (finding) [facility] Centertart: 21-48-6642Uzv Assigned At [facility] Hospitaltart: 06-01-2023 End: 90-80-9523Vvtcyzv use and exposureSmokeless tobacco non-userNOPA Healthcare Start: 01-25-2024 End: 19-85-1185Loevpuonn beverage intakeLifetime non-drinker (finding)[facility] HealthcareStart: 09-05-2023 End: 41-29-1056Uqducrl of Social functionNOPA HealthcareStart: 81-64-5775Flm assigned at [facility]-salemNot on [facility], ColumbiaHistory of tobacco usePassive smoker Bon [facility] CenterPI Corporation [facility]'S HospitalHydrocapsule [facility] HospitalStart: 23-00-3801Oubgmjzkw beverage intakeEx-drinker (finding)Bon BuildingLayer St[facility] Charles HospitalStart: 58-22-5813Mompdfzm abuseDeniesBon [facility] CenterPI Corporation [facility] Charles HospitalStart: 60-33-1680Xndwgdl Commentboth parents smokeBon [facility] CenterPI Corporation St. Charles HospitalStart: 27-28-5498UyxByxtdx (finding)[facility] Medical Equipment Procedure CodeEquipment CodeEquipment Original TextEquipment IdentifierDates Screw Bne L50mm Dia7mm Xl Full Thrd Compr - [id number] FDAStart: 31-87-2219Efzpvk Orthopedic 4.75 Mm Fdl - [id number]: 12-04-2024 Clinical Notes 07-22-2021 to 02-27-2025 Note Date & AkeaFttkSxqxsayg25-51-0115 History of Present illness Narrative* Alberto Enamorado MD - 02/27/2025 3:10 PM EDTAssociated Problem(s): Seasonal allergic rhinitis due to pollen Symptoms controlled with medication and continue. * Alberto Enamorado MD - 02/27/2025 3:10 PM EDTAssociated Problem(s): Palpitation Frequent symptoms causing lightheadedness. Check labs and Holter. * Alberto Enamorado MD - 02/27/2025 3:09 PM EDTAssociated Problem(s): Mild intermittent asthma without complication (HCC) Symptoms controlled with flovent and continue. Use albuterol PRN. * Alberto Enamorado MD - 02/27/2025 3:09 PM EDTAssociated Problem(s): Migraine without aura and without status migrainosus, not intractable HENRY controlled with topamax and continue. Use maxalt PRN. * Alberto Enamorado MD - 02/27/2025 3:09 PM EDTAssociated Problem(s): ROXANA (generalized anxiety disorder) Symptoms stable and monitor. * Alberto Enamorado MD - 02/27/2025 2:45 PM EDT Images from the original note [...] racing and skipping beats. Often feels lightheaded anddizzy when having palpitations. No LOC. Symptoms occur with activity or rest. Recently not as active over past several months due to foot surgery. Anxiety stable. Not as stressed out or overwhelmed. Not as nervous or worry as much. Not as santiago or irritable. Migraines stable and HENRY 2-3 [...] TSH W/REFLEX TO FT4 documented in this encounterSac-Osage HospitalIlwhtwzewf88-57-1160 Hospital Discharge instructions* Discharge Instructions* Antonio Us, [facility] - 12/04/2024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
== END 2025-07-17 10:59 | disposition home or self-care (01) ==
LOC: CARD 10:58
PROVIDERS: PCP Family Medicine; Visit Provider Internal Medicine Cardiovascular Disease
DX: R00.2 Palpitations (principal); R06.09 Other forms of dyspnea
CPT/HCPCS: 93306